=== PATIENT | female | born 2000 | race Caucasian/White ===

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

== ENCOUNTER → 2020-03-25 | Outpatient (REF) | payer OTHER, MEDICAID ==
[2020-03-25 17:50] LABS: BASO # 0.1 10^3/uL (0.0-0.2); EOS # 0.2 10^3/uL (0.0-0.5); EOS % 2.2 % (0.0-3.0); HEMATOCRIT 36.8 % (36.0-47.0); HEMOGLOBIN 11.1 g/dl (12.0-15.5); LYMPH % 30.3 % (24.0-44.0); MEAN CORPUSCULAR HEMOGLOBIN 21.9 pg (27.0-33.0); MEAN CORPUSCULAR HGB CONC 30.2 g/dl (32.0-36.5); MEAN CORPUSCULAR VOLUME 72.4 fl (80.0-96.0); MONO # 0.7 10^3/uL (0.0-0.8); MONO % 9.8 % (0.0-5.0); NEUTROPHILS # 3.8 10^3/uL (1.5-8.5); NEUTROPHILS % 56.4 % (36.0-66.0); PLATELET COUNT, AUTOMATED 222 10^3/uL (150-450); RED BLOOD COUNT 5.08 10^6/uL (4.00-5.40); WHITE BLOOD COUNT 6.7 10^3/uL (4.0-10.0)
[2020-03-25 18:06] LABS: HEMOGLOBIN A1c 6.1 %
[2020-03-25 18:10] LABS: ALT/SGPT 34 U/L (12-78); BLOOD UREA NITROGEN 13 MG/DL (7-18); CALCIUM LEVEL 9.1 MG/DL (8.5-10.1); CARBON DIOXIDE LEVEL 26 MEQ/L (21-32); CHLORIDE LEVEL 106 MEQ/L (98-107); CREATININE FOR GFR 0.77 MG/DL (0.55-1.30); GLUCOSE, FASTING 99 MG/DL (70-100); POTASSIUM SERUM 3.9 MEQ/L (3.5-5.1); SODIUM LEVEL 139 MEQ/L (136-145)
[2020-03-25 18:11] LABS: ALBUMIN 3.9 GM/DL (3.2-5.2); BILIRUBIN,TOTAL 0.4 MG/DL (0.2-1.0); CHOLESTEROL LEVEL 150 MG/DL (<200); CHOLESTEROL RISK RATIO 3.571 (<5); FREE T4 1.04 NG/DL (0.78-1.33); HDL CHOLESTEROL 42 MG/DL (>40); LDL CHOLESTEROL 90 MG/DL (<100); NON-HDL-C 108 MG/DL; TOTAL PROTEIN 7.3 GM/DL (6.4-8.2); TRIGLYCERIDES LEVEL 91 MG/DL (<150)
== END ==
LOC: M LAB REF 17:07
PROVIDERS: ATTEND Nurse Practitioner Family
DX: Z13.9 Encounter for screening, unspecified (principal); F41.8 Other specified anxiety disorders; F31.9 Bipolar disorder, unspecified

== ENCOUNTER → 2020-06-22 | Outpatient (REF) | payer OTHER, MEDICAID ==
[2020-06-22 19:59] LABS: BASO # 0.1 10^3/uL (0.0-0.2); BASO % 0.7 % (0.0-1.0); EOS # 0.1 10^3/uL (0.0-0.5); EOS % 1.6 % (0.0-3.0); HEMATOCRIT 37.7 % (36.0-47.0); HEMOGLOBIN 11.4 g/dl (12.0-15.5); LYMPH # 2.1 10^3/uL (1.5-5.0); LYMPH % 27.9 % (24.0-44.0); MEAN CORPUSCULAR HEMOGLOBIN 22.5 pg (27.0-33.0); MEAN CORPUSCULAR HGB CONC 30.2 g/dl (32.0-36.5); MEAN CORPUSCULAR VOLUME 74.5 fl (80.0-96.0); MONO # 0.5 10^3/uL (0.0-0.8); MONO % 6.7 % (0.0-5.0); NEUTROPHILS # 4.8 10^3/uL (1.5-8.5); NEUTROPHILS % 62.7 % (36.0-66.0); PLATELET COUNT, AUTOMATED 233 10^3/uL (150-450); RED BLOOD COUNT 5.06 10^6/uL (4.00-5.40); WHITE BLOOD COUNT 7.7 10^3/uL (4.0-10.0)
[2020-06-22 20:04] LABS: ALBUMIN 3.7 GM/DL (3.2-5.2); ALT/SGPT 18 U/L (12-78); BILIRUBIN,TOTAL 0.3 MG/DL (0.2-1.0); BLOOD UREA NITROGEN 9 MG/DL (7-18); CALCIUM LEVEL 9.1 MG/DL (8.5-10.1); CARBON DIOXIDE LEVEL 24 MEQ/L (21-32); CHLORIDE LEVEL 108 MEQ/L (98-107); CHOLESTEROL LEVEL 132 MG/DL (<200); CREATININE FOR GFR 0.71 MG/DL (0.55-1.30); GLUCOSE, FASTING 98 MG/DL (70-100); HDL CHOLESTEROL 48 MG/DL (>40); LDL CHOLESTEROL 70 MG/DL (<100); NON-HDL-C 84 MG/DL; POTASSIUM SERUM 4.3 MEQ/L (3.5-5.1); SODIUM LEVEL 136 MEQ/L (136-145); TOTAL PROTEIN 7.1 GM/DL (6.4-8.2); TRIGLYCERIDES LEVEL 71 MG/DL (<150)
[2020-06-22 20:28] LABS: TOTAL 25(OH) VITAMIN D 25.1 NG/ML (30.0-100.0)
[2020-06-22 20:50] LABS: HEMOGLOBIN A1c 5.5 %
== END ==
LOC: M LAB REF 17:09
PROVIDERS: ATTEND Nurse Practitioner Family
DX: E55.9 Vitamin D deficiency, unspecified (principal); R73.03 Prediabetes; Z13.9 Encounter for screening, unspecified; F41.8 Other specified anxiety disorders

== ENCOUNTER → 2020-10-20 | Outpatient (CLI) | payer OTHER | LOC: M LABSMTC 11:16 | PROVIDERS: ATTEND Student in an Organized Health Care Education/Training Program | DX: Z20.828 Contact with and (suspected) exposure to other viral communicable diseases (principal); Q28.2 Arteriovenous malformation of cerebral vessels ==

== ENCOUNTER 2020-12-03 23:05 | Emergency (ER) | payer OTHER ==
[~2020-12-03] VITALS: Ht 149.9 cm; Wt 64.2 kg
--- OUTSIDE RECORDS SUMMARY | 2020-12-03 23:13 | CCD | Continuity of Care Document ---
Author Author Jaleesa ONTIVEROS MD Organization Unknown Address [address], [address] [place] [address] Phone [phone] Care Team Providers Care Cryptologic Supervisor Name Role Phone Marva Oswald Md AUTM [phone] No PCP AUTM Unavailable Problems Description No Information Available Social History Type Date Description Comments Sex Unknown ETOH Use Denies alcohol use Tobacco Use Reviewed: 10/19/20 Patient has never sm oked (pipe, cigarette, cigar) Recreational Drug Use Regularly uses Marijuana Smoking Status Reviewed: 11/02/20 Patient has never sm oked (pipe, cigarette, cigar) Allergies, Adverse Reactions, Alerts Active Allergies Reaction Severity Comments Date Amoxicillin Hives 10/19/2020 Medications Description No Active Medications Immunizations Description No Information Available Vital Signs Date Vital Result Comment 10/19/2020 8:31am Height 59 inches 4'11" Weight 140.00 lb BMI (Body Mass Index) 28.3 kg/m2 BP Systolic 124 mmHg BP Diastolic 79 mmHg Heart Rate 73 /min Body Temperature 97.0 F Body Temperature 36.1 C Results Test Acquired Date Facility Test Result H/L Range Note Coronavirus 2019 Nasopharygeal 10/20/2020 [facility] [address] [place] [address] [phone] Coronavirus 2019 Nasopharygeal This nucleic aci <SEE N OTE> 1 BMP-Female 10/19/2020 [facility] [address] [place], [place] [id number] [phone] Glucose 97 mg/dL 74-106 2 BUN 12 mg/dL 6-20 Creatinine 0.8 mg/dL 0.5-1.3 Sodium 139 mmol/L 136-145 Potassium 3.9 mmol/L 3.5-5.3 Chloride 103 mmol/L 98-107 Co2 26 mEq/L 20-31 Anion Gap 10 mmol/L 7-16 eGFR-female 91 mL/m/1.73m - eGFR-Aa female 111 mL/m/1.73m - 3 Calcium 9.6 mg/dL 8.9-10.5 Cbcadp 10/19/2020 [facility] [address] [place] [address] [phone] WBC. 8.22 x10E3/uL 4.2-12.0 RBC 5.01 x10E6/uL 3.9-5.4 4 HGB 11.6 g/dL Low 12.0-16.0 HCT 38.2 % 36-47 MCV 76.3 fL Low 80-98 MCH 23.2 pg Low 27-33 MCHC 30.4 g/dL Low 32-36 RDW 15.3 % High 11.2-15.2 PLT 248 x10E3/uL 135-420 MPV 9.9 fL 7.0-12.3 % Michael 64.7 % 41.0-80.0 %Lym 27.3 % 10.0-45.2 %[place] 5.6 % 2.0-13.0 %Eos 1.7 % 0.0-8.0 %Baso 0.6 % 0.0-3.0 Neut 5.3 x10E3/uL 2.0-8.1 Lymp 2.3 x10E3/uL 0.6-3.1 Porter 0.5 x10E3/uL 0.0-1.0 Eos 0.1 x10E3/uL 0.0-0.6 Baso 0.1 x10E3/uL 0.0-0.2 Laboratory test finding 10/19/2020 [facility] [address] [place] [address] [phone] HCG Quant <2 miu/ml - 5 PT-Inr 10/19/2020 [facility] [address] [place] [address] [phone] PT 15.0 Sec High 10.6-13.0 Inr 1.3 - 6 Laboratory test finding 10/19/2020 [facility] [address] [place] [address] [phone] PTT 29.7 Sec 24.7-34.7 7 Venipuncture DONE - 1 This nucleic acid amplificat ion test was developed and its performance characteristics determined by [employer]. Nucleic acid amplification tests include PCR and TMA. This test has not been FDA cleared or approved. This test has been authorized by FDA under an Emergency Use Authorization (EUA). This test is only authorized for the duration of time the declaration that circumstances exist justifying the authorization of the emergency use of in vitro diagnostic tests for detection of SARS-CoV-2 virus and/or diagnosis of COVID-19 infection under section 564(b)(1) of the Act, 21 U.S.C. 360bbb-3 (b) (1), unless the authorization is terminated or revoked sooner. When diagnostic testing is negative, the possibility of a false negative result should be considered in the context of a patient's recent exposures and the presence of clinical signs and symptoms consistent with COVID-19. An individual without symptoms of COVID-19 and who is not shedding SARS-CoV-2 virus would expect to have a negative (not detected) result in this assay. Performed at: [facility] [address] [facility], [place] [address] [id number] Agricultural And Forestry Supervisor: Zayda Kim PhD, Phone: [phone] Not Detected 2 [place] Diabetes Associatio n (ADA) Recommended Range is 65-99 mg/dL 3 Normal Kidney Function or Mi ld Disease GFR >59 mL/min/1.73m2 Chronic Kidney Disease GFR 15-59 mL/min/1.73m2 Renal Failure GFR <15 mL/min/1.73m2 4 1+ Microcytosis 1+ Hypochromasia 1+ Anisocytosis 5 HCG Interpretation: Less Than 5.0 miu/ml - Either no HCG or too low to be clinically significant. 5.0 - 25.0 miu/ml - Equivocal result. Sh ould be repeated after 48 hours. A test result less than 25.0 should be interpreted in conjunction with other laboratory data available to the physician. Greater than 25.0 miu/ml - Clinically significant. 6 * INR Interpretation : . Recommended Theraputic Range: 2.0 - 3.0 . For treatment/prophylaxis . of venous thrombosis, . prevention of embolism. . . 7 Note normal range update due to new reagent lot 06/16/2020 Procedures Date Code Description Status 10/25/2020 79980 Moderate Sedation Se rvices; Same Phys Intl 15 Mins; PT >= 5 Years Completed 10/25/2020 71533 External Artery Carotid Cath PLM NT Completed 10/25/2020 69722 Vertebral Artery Catheter Placem ent Completed 10/25/2020 71211 Angiography Internal Corotid Of The Ipsil Intrac Circulation Completed Medical Devices Description No Information Available Encounters Type Date Location Provider Dx Diagnosis Office Visit 11/02/2020 11:40a [facility] Neurosurgery Issa Ontiveros MD 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 Office Visit 10/19/2020 8:20a [facility] Neurosurgery Issa Ontiveros MD 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 Assessments Date Code Description Provider 11/02/2020 Q28.2 Arteriovenous malformation of ce rebral vessels Issa Ontiveros MD 10/25/2020 Q28.2 Arteriovenous malformation of ce rebral vessels Issa Ontiveros MD 10/19/2020 Q28.2 Arteriovenous malformation of ce rebral vessels Issa Ontiveros MD 10/19/2020 Q28.2 Arteriovenous malformation of ce rebral vessels [facility] Plan of Treatment 11/02/2020 - Issa Ontiveros MD* 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
--- OUTSIDE RECORDS SUMMARY | 2020-12-03 23:13 | CCD | Continuity of Care Document ---
Author Author Jaleesa ONTIVEROS MD Organization Unknown Address [address], [address] [place] [address] Phone [phone] Care Team Providers Care Plastics Spreading Machine Operator Name Role Phone Marva Oswald Md AUTM [phone] No PCP AUTM Unavailable Problems Description No [...] H/L Range Note Coronavirus 2019 Nasopharygeal 10/20/2020 [facility] [address] [place] [address] [phone] Coronavirus 2019 Nasopharygeal This nucleic aci <SEE N OTE> 1 BMP-Female 10/19/2020 [facility] [address] [place] [address] [phone] Glucose 97 mg/dL 74-106 2 BUN 12 mg/dL 6-20 Creatinine 0.8 mg/dL 0.5-1.3 Sodium 139 mmol/L 136-145 Potassium 3.9 mmol/L 3.5-5.3 Chloride 103 mmol/L 98-107 Co2 26 mEq/L 20-31 Anion Gap 10 mmol/L 7-16 eGFR-female 91 mL/m/1.73m - eGFR-Aa female 111 mL/m/1.73m - 3 Calcium 9.6 mg/dL 8.9-10.5 Cbcadp 10/19/2020 [facility] [address] [place] [address] [phone] WBC. 8.22 x10E3/uL 4.2-12.0 RBC 5.01 x10E6/uL 3.9-5.4 4 HGB 11.6 g/dL Low 12.0-16.0 HCT 38.2 % 36-47 MCV 76.3 fL Low 80-98 MCH 23.2 pg Low 27-33 MCHC 30.4 g/dL Low 32-36 RDW 15.3 % High 11.2-15.2 PLT 248 x10E3/uL 135-420 MPV 9.9 fL 7.0-12.3 % Michael 64.7 % 41.0-80.0 %Lym 27.3 % 10.0-45.2 %[place] 5.6 % 2.0-13.0 %Eos 1.7 % 0.0-8.0 %Baso 0.6 % 0.0-3.0 Neut 5.3 x10E3/uL 2.0-8.1 Lymp 2.3 x10E3/uL 0.6-3.1 [place] 0.5 x10E3/uL 0.0-1.0 Eos 0.1 x10E3/uL 0.0-0.6 Baso 0.1 x10E3/uL 0.0-0.2 Laboratory test finding 10/19/2020 [facility] [address] [place] [address] [phone] HCG Quant <2 miu/ml - 5 PT-Inr 10/19/2020 [facility] [address] [place] [address] [phone] PT 15.0 Sec High 10.6-13.0 Inr 1.3 - 6 Laboratory test finding 10/19/2020 [facility] [address] [place] [address] [phone] PTT 29.7 Sec 24.7-34.7 7 Venipuncture DONE - 1 This nucleic acid amplificat ion test was developed and its performance characteristics determined by [employer]. Nucleic acid amplification tests include PCR and [...] detected) result in this assay. Performed at: [employer] [address] [facility], [place] [id number] Second Miller: Zayda Kim PhD, Phone: [phone] Not Detected 2 [place] Diabetes Associatio n (ADA) Recommended Range is [...] 06/16/2020 Procedures Date Code Description Status 10/25/2020 84740 Moderate Sedation Se rvices; Same Phys Intl 15 Mins; PT >= 5 Years Completed 10/25/2020 93111 External Artery Carotid Cath PLM NT Completed 10/25/2020 60741 Vertebral Artery Catheter Placem ent Completed 10/25/2020 14746 Angiography Internal Corotid Of The Ipsil Intrac Circulation Completed Medical Devices Description No Information Available Encounters Type Date Location Provider Dx Diagnosis Office Visit 10/19/2020 8:20a [facility] Neurosurgery Issa Ontiveros MD Q2 8.2 Arteriovenous [...] Status Appt Date Issa Ontiveros MD Created [facility] Neuroscience Division [address], [address] [place] [address] [phone]
--- OUTSIDE RECORDS SUMMARY | 2020-12-03 23:13 | CCD | Continuity of Care Document ---
Author Author Jaleesa ONTIVEROS MD Organization Unknown Address [address], [address] [place] [address] Phone [phone] Care Team Providers Care Bander Operator Name Role Phone Marva Oswald Md AUTM [phone] No PCP AUTM Unavailable Problems Description No [...] H/L Range Note Coronavirus 2019 Nasopharygeal 10/20/2020 [facility] [address] [place] [address] [phone] Coronavirus 2019 Nasopharygeal This nucleic aci <SEE N OTE> 1 BMP-Female 10/19/2020 [facility] [address] [place] [address] [phone] Glucose 97 mg/dL 74-106 2 BUN 12 mg/dL 6-20 Creatinine 0.8 mg/dL 0.5-1.3 Sodium 139 mmol/L 136-145 Potassium 3.9 mmol/L 3.5-5.3 Chloride 103 mmol/L 98-107 Co2 26 mEq/L 20-31 Anion Gap 10 mmol/L 7-16 eGFR-female 91 mL/m/1.73m - eGFR-Aa female 111 mL/m/1.73m - 3 Calcium 9.6 mg/dL 8.9-10.5 Cbcadp 10/19/2020 [facility] [address] [place] [address] [phone] WBC. 8.22 x10E3/uL 4.2-12.0 RBC 5.01 x10E6/uL 3.9-5.4 4 HGB 11.6 g/dL Low 12.0-16.0 HCT 38.2 % 36-47 MCV 76.3 fL Low 80-98 MCH 23.2 pg Low 27-33 MCHC 30.4 g/dL Low 32-36 RDW 15.3 % High 11.2-15.2 PLT 248 x10E3/uL 135-420 MPV 9.9 fL 7.0-12.3 % Michael 64.7 % 41.0-80.0 %Lym 27.3 % 10.0-45.2 %[place] 5.6 % 2.0-13.0 %Eos 1.7 % 0.0-8.0 %Baso 0.6 % 0.0-3.0 Neut 5.3 x10E3/uL 2.0-8.1 Lymp 2.3 x10E3/uL 0.6-3.1 [place] 0.5 x10E3/uL 0.0-1.0 Eos 0.1 x10E3/uL 0.0-0.6 Baso 0.1 x10E3/uL 0.0-0.2 Laboratory test finding 10/19/2020 [facility] [address] [place] [address] [phone] HCG Quant <2 miu/ml - 5 PT-Inr 10/19/2020 [facility] [address] [place] [address] [phone] PT 15.0 Sec High 10.6-13.0 Inr 1.3 - 6 Laboratory test finding 10/19/2020 [facility] [address] [place] [address] [phone] PTT 29.7 Sec 24.7-34.7 7 Venipuncture DONE - 1 This nucleic acid amplificat ion test was developed and its performance characteristics determined by [employer]. Nucleic acid amplification tests include PCR and [...] detected) result in this assay. Performed at: [facility] [address] [facility], [place] [id number] Garnishment Specialist: Zayda Kim PhD, Phone: [phone] Not Detected 2 [place] Diabetes Associatio n (ADA) Recommended Range is [...] 06/16/2020 Procedures Date Code Description Status 10/25/2020 72501 Moderate Sedation Se rvices; Same Phys Intl 15 Mins; PT >= 5 Years Completed 10/25/2020 71432 External Artery Carotid Cath PLM NT Completed 10/25/2020 09964 Vertebral Artery Catheter Placem ent Completed 10/25/2020 84667 Angiography Internal Corotid Of The Ipsil Intrac Circulation Completed Medical Devices Description No Information Available Encounters Type Date Location Provider Dx Diagnosis Office Visit 11/02/2020 11:40a [facility] Neurosurgery Issa Ontiveros MD 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
--- OUTSIDE RECORDS SUMMARY | 2020-12-03 23:13 | CCD | Continuity of Care Document ---
Author Author Jaleesa ONTIVEROS MD Organization Unknown Address [address], [address] [place] [address] Phone [phone] Care Team Providers Care Technical Project Manager Name Role Phone Marva Oswald Md AUTM [phone] No PCP AUTM Unavailable Problems Description No Information Available Social History Type Date Description Comments Sex Unknown ETOH Use Denies alcohol use Tobacco Use Reviewed: 10/19/20 Patient has never sm oked (pipe, cigarette, cigar) Recreational Drug Use Regularly uses Marijuana Smoking Status Reviewed: 10/19/20 Patient has never sm oked [...] H/L Range Note Coronavirus 2019 Nasopharygeal 10/20/2020 [facility] [address] [place] [address] [phone] Coronavirus 2019 Nasopharygeal This nucleic aci <SEE N OTE> 1 BMP-Female 10/19/2020 [facility] [address] [place] [address] [phone] Glucose 97 mg/dL 74-106 2 BUN 12 mg/dL 6-20 Creatinine 0.8 mg/dL 0.5-1.3 Sodium 139 mmol/L 136-145 Potassium 3.9 mmol/L 3.5-5.3 Chloride 103 mmol/L 98-107 Co2 26 mEq/L 20-31 Anion Gap 10 mmol/L 7-16 eGFR-female 91 mL/m/1.73m - eGFR-Aa female 111 mL/m/1.73m - 3 Calcium 9.6 mg/dL 8.9-10.5 Cbcadp 10/19/2020 [facility] [address] [place] [address] [phone] WBC. 8.22 x10E3/uL 4.2-12.0 RBC 5.01 x10E6/uL 3.9-5.4 4 HGB 11.6 g/dL Low 12.0-16.0 HCT 38.2 % 36-47 MCV 76.3 fL Low 80-98 MCH 23.2 pg Low 27-33 MCHC 30.4 g/dL Low 32-36 RDW 15.3 % High 11.2-15.2 PLT 248 x10E3/uL 135-420 MPV 9.9 fL 7.0-12.3 % Michael 64.7 % 41.0-80.0 %Lym 27.3 % 10.0-45.2 %[place] 5.6 % 2.0-13.0 %Eos 1.7 % 0.0-8.0 %Baso 0.6 % 0.0-3.0 Neut 5.3 x10E3/uL 2.0-8.1 Lymp 2.3 x10E3/uL 0.6-3.1 [place] 0.5 x10E3/uL 0.0-1.0 Eos 0.1 x10E3/uL 0.0-0.6 Baso 0.1 x10E3/uL 0.0-0.2 Laboratory test finding 10/19/2020 [facility] [address] [place] [address] [phone] HCG Quant <2 miu/ml - 5 PT-Inr 10/19/2020 [facility] [address] [place] [address] [phone] PT 15.0 Sec High 10.6-13.0 Inr 1.3 - 6 Laboratory test finding 10/19/2020 [facility] [address] [place] [address] [phone] PTT 29.7 Sec 24.7-34.7 7 Venipuncture DONE - 1 This nucleic acid amplificat ion test was developed and its performance characteristics determined by [employer]. Nucleic acid amplification tests include PCR and [...] detected) result in this assay. 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 Ontiveros to be scheduled in next couple weeks. Functional Status Description No Information Available Mental Status Description No Information Available Referrals Refer to Reason for Referral Status Appt Date Issa Ontiveros MD Created [facility] Neuroscience Division [address], [address] [place] [address] [phone]
--- OUTSIDE RECORDS SUMMARY | 2020-12-03 23:13 | CCD | Continuity of Care Document ---
Author Author Jaleesa ONTIVEROS MD Organization Unknown Address [address], [address] [place] [address] Phone [phone] Care Team Providers Care Coffee Host Name Role Phone Marva Oswald Md AUTM [phone] No PCP AUTM Unavailable Problems Description No [...] H/L Range Note Coronavirus 2019 Nasopharygeal 10/20/2020 [facility] [address] [place] [address] [phone] Coronavirus 2019 Nasopharygeal This nucleic aci <SEE N OTE> 1 BMP-Female 10/19/2020 [facility] [address] [place] [address] [phone] Glucose 97 mg/dL 74-106 2 BUN 12 mg/dL 6-20 Creatinine 0.8 mg/dL 0.5-1.3 Sodium 139 mmol/L 136-145 Potassium 3.9 mmol/L 3.5-5.3 Chloride 103 mmol/L 98-107 Co2 26 mEq/L 20-31 Anion Gap 10 mmol/L 7-16 eGFR-female 91 mL/m/1.73m - eGFR-Aa female 111 mL/m/1.73m - 3 Calcium 9.6 mg/dL 8.9-10.5 Cbcadp 10/19/2020 [facility] [address] [place] [address] [phone] WBC. 8.22 x10E3/uL 4.2-12.0 RBC 5.01 x10E6/uL 3.9-5.4 4 HGB 11.6 g/dL Low 12.0-16.0 HCT 38.2 % 36-47 MCV 76.3 fL Low 80-98 MCH 23.2 pg Low 27-33 MCHC 30.4 g/dL Low 32-36 RDW 15.3 % High 11.2-15.2 PLT 248 x10E3/uL 135-420 MPV 9.9 fL 7.0-12.3 % Michael 64.7 % 41.0-80.0 %Lym 27.3 % 10.0-45.2 %[place] 5.6 % 2.0-13.0 %Eos 1.7 % 0.0-8.0 %Baso 0.6 % 0.0-3.0 Neut 5.3 x10E3/uL 2.0-8.1 Lymp 2.3 x10E3/uL 0.6-3.1 [place] 0.5 x10E3/uL 0.0-1.0 Eos 0.1 x10E3/uL 0.0-0.6 Baso 0.1 x10E3/uL 0.0-0.2 Laboratory test finding 10/19/2020 [facility] [address] [place] [address] [phone] HCG Quant <2 miu/ml - 5 PT-Inr 10/19/2020 [facility] [address] [place] [address] [phone] PT 15.0 Sec High 10.6-13.0 Inr 1.3 - 6 Laboratory test finding 10/19/2020 [facility] [address] [place] [address] [phone] PTT 29.7 Sec 24.7-34.7 7 Venipuncture DONE - 1 This nucleic acid amplificat ion test was developed and its performance characteristics determined by [employer]. Nucleic acid amplification tests include PCR and [...] detected) result in this assay. Performed at: [facility] [address] [facility], [place] [id number] Biosolids Management Technician: Zayda Kim PhD, Phone: [phone] Not Detected 2 [place] Diabetes Associatio n (ADA) Recommended Range is [...] 06/16/2020 Procedures Date Code Description Status 10/25/2020 31854 Moderate Sedation Se rvices; Same Phys Intl 15 Mins; PT >= 5 Years Completed 10/25/2020 49604 External Artery Carotid Cath PLM NT Completed 10/25/2020 69214 Vertebral Artery Catheter Placem ent Completed 10/25/2020 88595 Angiography Internal Corotid Of The Ipsil Intrac Circulation Completed Medical Devices Description No Information Available Encounters Type Date Location Provider Dx Diagnosis Office Visit 10/19/2020 8:20a [facility] Neurosurgery Issa Ontiveros MD Q2 8.2 [...] Status Appt Date Issa Ontiveros MD Created [facility] Neuroscience Division [address], [address] [place] [address] [phone]
--- OUTSIDE RECORDS SUMMARY | 2020-12-03 23:14 | CCD | Continuity of Care Document ---
Author Author Jaleesa BASILIO M.D. Organization Unknown Address [address] [place] [address] Phone [phone] Care Team Providers Care Health Promotion Coordinator Name Role Phone Ana Hernandez AUTM [phone] Problems Active Problems Provider Date Migraine Marva Basilio M.D. Onset: 09/02/2020 Social History Type Date Description Comments Sex Unknown Tobacco Use Start: Unknown Patient has never smoked Allergies, Adverse Reactions, Alerts Active Allergies Reaction Severity Comments Date Amoxicillin 09/02/2020 Inactive Allergies NKDA 09/02/2020 Medications Active Medications SIG Qnty Indications Ordering Provide r Date Tylenol 325mg Tablets 1-2 pills every 6 hours as needed Marva Basilio M.D. Ibuprofen 200mg Tablets Take 1-4 tabs as needed for severe headache pain every 8 hours Sa coby Basilio M.D. History Medications Depo-Provera 150mg/ml Suspension inject Im every three months. 1units Unknown 08/02/2020 - Unknown Vitamin D3 1.25mg (63458 Ut) Table ts 1 po q wk for 12 wks, then change to 1000 unit tablet daily thereafter 12tabs Unknown 03/31/2020 - Unknown Immunizations CPT Code Status Date Vaccine Lot # [id number] Given 08/02/2020 Influenza Virus Vaccine, Quadrivalent, Split, Preservative Free [id number] Given 09/29/2019 Influenza Virus Vaccine, Quadrivalent, Split, Preservative Free Vital Signs Date Vital Result Comment 09/02/2020 9:40am Respiratory Rate 12 /min Height 59 inches 4'11" Height Percentile 3 % Weight 150.00 lb Weight Percentile 80th BMI (Body Mass Index) 30.3 kg/m2 [place] Body Weight 100 lb Results Description No Information Available Procedures Description No Information Available Medical Devices Description No Information Available Encounters Type Date Location Provider Dx Diagnosis Office Visit 09/02/2020 9:00a [facility] Marva santana M.D. G43.109 Migraine with aura, not intractable, w/o status migrainosus Assessments Date Code Description Provider 09/02/2020 G43.109 Migraine with aura, not intractable, without status migrainosus Marva Basilio M.D. Plan of Treatment Future Appointment(s):* 12/06/2020 12:30 pm - Marva Basilio M.D. at [facility] Functional Status Description No Information Available Mental Status Description No Information Available Referrals Refer to Reason for Referral Status Appt Date Marva Basilio M.D. Created [address] [place] [address] [phone]
--- OUTSIDE RECORDS SUMMARY | 2020-12-03 23:14 | CCD | Continuity of Care Document ---
Author Author Jaleesa SHEEHAN Organization Unknown Address [address] [place] [address] Phone [phone] Care Team Providers Care Devops Architect Name Role Phone Ana Hernandez TEACHER PHYSICALLY IMPAIRED AUTM [phone] Problems Active Problems Provider Date Migraine Marva Oswald M.D. Onset: 09/02/2020 Social History Type Date Description Comments Sex Unknown Tobacco Use Start: Unknown Patient has never smoked Allergies, Adverse Reactions, Alerts Active Allergies Reaction Severity Comments Date Amoxicillin 09/02/2020 Inactive Allergies NKDA 09/02/2020 Medications Active Medications SIG Qnty Indications Ordering Provide r Date Tylenol 325mg Tablets 1-2 pills every 6 hours as needed Marva Oswald M.D. Ibuprofen 200mg Tablets Take 1-4 tabs as needed for severe headache pain every 8 hours Sa coby Oswald M.D. History Medications Depo-Provera 150mg/ml Suspension inject Im every three months. 1units Unknown 08/02/2020 - Unknown Vitamin D3 1.25mg (44831 Ut) Table ts 1 po q wk for 12 wks, then change to 1000 unit tablet daily thereafter 12tabs Unknown 03/31/2020 - Unknown Immunizations CPT Code Status Date Vaccine Lot # [id number] Given 08/02/2020 Influenza Virus Vaccine, Quadrivalent, Split, Preservative Free [id number] Given 09/29/2019 Influenza Virus Vaccine, Quadrivalent, Split, Preservative Free Vital Signs Date Vital Result Comment 09/02/2020 9:40am Respiratory Rate 12 /min Height 59 inches 4'11" Height Percentile 3 % Weight 150.00 lb Weight Percentile 80th BMI (Body Mass Index) 30.3 kg/m2 [place] Body Weight 100 lb Results Description No Information Available Procedures Date Code Description Status 09/13/2020 95023 MRI Brain W/O Contrast Completed 09/13/2020 78488 MRI Brain W/O Contrast Completed 09/13/2020 49752 Magnetic Resonance Angiogtaphy H ead W/O Contrast Material(S) Completed 09/13/2020 92252 Magnetic Resonance Angiogtaphy H ead W/O Contrast Material(S) Completed Medical Devices Description No Information Available Encounters Type Date Location Provider Dx Diagnosis Office Visit 09/02/2020 9:00a [facility] Marva santana M.D. G43.109 Migraine with aura, not intractable, w/o status migrainosus Assessments Date Code Description Provider 09/13/2020 G43.109 Migraine with aura, not intractable, without status migrainosus Dashawn Driscoll M.D. 09/13/2020 G43.109 Migraine with aura, not intractable, without status migrainosus MRI 09/13/2020 R42 Dizziness and giddiness Dashawn Carrillo M.D. 09/13/2020 R42 Dizziness and giddiness MRI 09/13/2020 H53.2 Diplopia Zaira Lambert 09/13/2020 H53.2 Diplopia MRI 09/02/2020 G43.109 Migraine with aura, not intractable, without status migrainosus Marva Oswald M.D. Plan of Treatment Future Appointment(s):* 12/06/2020 12:30 pm - Marva Oswald M.D. at [facility] Functional Status Description No Information Available Mental Status Description No Information Available Referrals Refer to Reason for Referral Status Appt Date Marva Oswald M.D. Created [address] [place] [address] [phone] Marva Oswald M.D. Created [address] [place] [address] [phone]
--- OUTSIDE RECORDS SUMMARY | 2020-12-03 23:14 | CCD | Continuity of Care Document ---
Author Author Jaleesa ONTIVEROS MD Organization Unknown Address [address], [address] [place] [address] Phone [phone] Care Team Providers Care Slurry Control Tender Name Role Phone Marva Oswald Md AUTM [phone] No PCP AUTM Unavailable Problems Description No [...] 97.0 F Body Temperature 36.1 C Results Description No Information Available Procedures Description No Information Available Medical Devices Description No Information Available Encounters Description No Information Available Assessments Date Code Description Provider 10/19/2020 Q28.2 Arteriovenous malformation of ce rebral vessels Issa Ontiveros MD Plan of Treatment Future Appointment(s):* 10/25/2020 8:00 am - Issa Ontiveros MD 10/19/2020 - Issa Ontiveros MD* 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 Padalino to be scheduled in next couple weeks. Functional Status Description No Information Available Mental Status Description No Information Available Referrals Refer to Reason for Referral Status Appt Date Issa Ontiveros MD Created [facility] Neuroscience Division [address], [address] [place] [address] [phone]
--- OUTSIDE RECORDS SUMMARY | 2020-12-03 23:14 | CCD | Continuity of Care Document ---
Author Author Jaleesa SHEEHAN Organization Unknown Address [address] [place] [address] Phone [phone] Care Team Providers Care Shot Core Drill Operator Name Role Phone Ana Hernandez AUTM [phone] Problems Active Problems Provider Date Migraine Mrava Oswald M.D. Onset: 09/02/2020 Social History Type [...] Unknown 08/02/2020 - Unknown Vitamin D3 1.25mg (52636 Ut) Table ts 1 po q wk for 12 wks, then change to 1000 unit tablet daily thereafter 12tabs Unknown 03/31/2020 - Unknown Immunizations CPT Code Status Date Vaccine Lot # [id number] Given 08/02/2020 Influenza Virus Vaccine, Quadrivalent, Split, Preservative Free 49654 Given 09/29/2019 Influenza Virus Vaccine, Quadrivalent, Split, Preservative Free Vital Signs Date Vital Result Comment 09/02/2020 9:40am Respiratory Rate 12 /min Height 59 inches 4'11" Height Percentile 3 % Weight 150.00 lb Weight Percentile 80th BMI (Body Mass Index) 30.3 kg/m2 [place] Body Weight 100 lb Results Description No Information Available Procedures Date Code Description Status 09/13/2020 57972 MRI Brain W/O Contrast Completed 09/13/2020 92538 Magnetic Resonance Angiogtaphy H ead W/O Contrast Material(S) Completed Medical Devices Description No Information Available Encounters Type Date Location Provider Dx Diagnosis Office Visit 09/02/2020 9:00a [facility] Marva santana M.D. G43.109 Migraine with aura, not intractable, w/o status migrainosus Assessments Date Code Description Provider 09/13/2020 G43.109 Migraine with aura, not intractable, without status migrainosus MRI 09/13/2020 R42 Dizziness and giddiness MRI 09/13/2020 H53.2 Diplopia MRI 09/02/2020 G43.109 Migraine with aura, not intractable, without status migrainosus Marva Oswald M.D. Plan of Treatment Future Appointment(s):* 12/06/2020 12:30 pm - Marva Oswald M.D. at [facility] Functional Status Description No Information Available Mental Status Description No Information Available Referrals Refer to Reason for Referral Status Appt Date Marva Oswald M.D. Created [address] [place] [address] [phone]
--- OUTSIDE RECORDS SUMMARY | 2020-12-03 23:14 | CCD ---
Author Author [facility] Organization [facility] Address Unknown Phone Unavailable Care Team Providers Care Bead Wrapper Name Role Phone Donell Ontiveros MD Unavailable Unavailable Donell Ontiveros MD Unavailable Unavailable Donell Ontiveros MD Unavailable Unavailable Padalino, Donell Parsons MD Unavailable Unavailable Padalino, Donell Parsons MD Unavailable Unavailable Padalino, Donell Parsons MD Unavailable Unavailable Padalino, Donell Parsons MD Unavailable Unavailable Padalino, Donell Parsons MD Unavailable Unavailable Padalino, Donell Parsons MD Unavailable Unavailable Padalino, Donell Parsons MD Unavailable Unavailable Padalino, Donell Parsons MD Unavailable Unavailable Padalino, Donell Parsons MD Unavailable Unavailable Padalino, Donell Parsons MD Unavailable Unavailable Padalino, Donell Parsons MD Unavailable Unavailable Padalino, Donell Parsons MD Unavailable Unavailable Padalino, Donell Parsons MD Unavailable Unavailable Padalino, Donell Parsons MD Unavailable Unavailable Padalino, Donell Parsons MD Unavailable Unavailable Padalino, Donell Parsons MD Unavailable Unavailable Padalino, Donell Parsons MD Unavailable Unavailable Padalino, Donell Parsons MD Unavailable Unavailable Padalino, Donell Parsons MD Unavailable Unavailable Padalino, Donell Parsons MD Unavailable Unavailable Padalino, Donell Parsons MD Unavailable Unavailable Padalino, Donell Parsons MD Unavailable Unavailable Padalino, Donell Parsons MD Unavailable Unavailable Padalino, Donell Parsons MD Unavailable Unavailable Padalino, Donell Parsons MD Unavailable Unavailable Padalino, Donell Parsons MD Unavailable Unavailable Padalino, Donell Parsons MD Unavailable Unavailable Padalino, Donell Parsons MD Unavailable Unavailable Padalino, Donell Parsons MD Unavailable Unavailable Padalino, Donell Parsons MD Unavailable Unavailable Padalino, Donell Parsons MD Unavailable Unavailable Padalino, Donell Parsons MD Unavailable Unavailable Padalino, Donell Parsons MD Unavailable Unavailable Padalino, Donell Parsons MD Unavailable Unavailable Padalino, Donell Parsons MD Unavailable Unavailable Padalino, Donell Parsons MD Unavailable Unavailable Padalino, Donell Parsons MD Unavailable Unavailable Padalino, Donell Parsons MD Unavailable Unavailable Padalino, Donell Parsons MD Unavailable Unavailable Padalino, Donell Parsons MD Unavailable Unavailable Padalino, Donell Parsons MD Unavailable Unavailable Padalino, Donell Parsons MD Unavailable Unavailable Padalino, Donell Parsons MD Unavailable Unavailable Padalino, Donell Parsons MD Unavailable Unavailable Padalino, Donell Parsons MD Unavailable Unavailable Padalino, Donell Parsons MD Unavailable Unavailable Padalino, Donell aPrsons MD Unavailable Unavailable Padalino, Donell Parsons MD Unavailable Unavailable Padalino, Donell Parsons MD Unavailable Unavailable Padalino, Donell Parsons MD Unavailable Unavailable Padalino, Donell Parsons MD Unavailable Unavailable Padalino, Donell Parsons MD Unavailable Unavailable Padalino, Donell Parsons MD Unavailable Unavailable Padalino, Donell Parsons MD Unavailable Unavailable Padalino, Donell Parsons MD Unavailable Unavailable Padalino, Donell Parsons MD Unavailable Unavailable Padalino, Donell Parsons MD Unavailable Unavailable Padalino, Donell Parsons MD Unavailable Unavailable Padalino, Donell Parsons MD Unavailable Unavailable Padalino, Donell Parsons MD Unavailable Unavailable Padalino, Donell Parsons MD Unavailable Unavailable Padalino, Donell Parsons MD Unavailable Unavailable Padalino, Donell Parsons MD Unavailable Unavailable Padalino, Donell Parsons MD Unavailable Unavailable Padalino, Donell Parsons MD Unavailable Unavailable Padalino, Donell Parsons MD Unavailable Unavailable Padalino, Donell Parsons MD Unavailable Unavailable Padalino, Donell Parsons MD Unavailable Unavailable Padalino, Donell Parsons MD Unavailable Unavailable Padalino, Donell Parsons MD Unavailable Unavailable Padalino, Donell Parsons MD Unavailable Unavailable Padalino, Donell Parsons MD Unavailable Unavailable Padalino, Donell Parsons MD Unavailable Unavailable Davison, Chelsey ENVIRONMENTAL ENGINEER SCIENTIST ENVIRONMENTAL ENGINEER SCIENTIST Unavailable Unavailable Davison, F Chelsey ENVIRONMENTAL ENGINEER SCIENTIST-BC Unavailable Unavailable Davison, F Chelsey ENVIRONMENTAL ENGINEER SCIENTIST-BC Unavailable Unavailable Davison, F Chelsey ENVIRONMENTAL ENGINEER SCIENTIST-BC Unavailable Unavailable Davison, F Chelsey ENVIRONMENTAL ENGINEER SCIENTIST-BC Unavailable Unavailable Davison, F Chelsey ENVIRONMENTAL ENGINEER SCIENTIST-BC Unavailable Unavailable Davison, F Chelsey ENVIRONMENTAL ENGINEER SCIENTIST-BC Unavailable Unavailable Davison, F Chelsey ENVIRONMENTAL ENGINEER SCIENTIST-BC Unavailable Unavailable Davison, F Chelsey ENVIRONMENTAL ENGINEER SCIENTIST-BC Unavailable Unavailable Davison, F Chelsey ENVIRONMENTAL ENGINEER SCIENTIST-BC Unavailable Unavailable Davison, F Chelsey ENVIRONMENTAL ENGINEER SCIENTIST-BC Unavailable Unavailable Davison, F Chelsey ENVIRONMENTAL ENGINEER SCIENTIST-BC Unavailable Unavailable Davison, F Chelsey ENVIRONMENTAL ENGINEER SCIENTIST-BC Unavailable Unavailable Davison, F Chelsey ENVIRONMENTAL ENGINEER SCIENTIST-BC Unavailable Unavailable Davison, F Chelsey ENVIRONMENTAL ENGINEER SCIENTIST-BC Unavailable Unavailable Davison, F Chelsey ENVIRONMENTAL ENGINEER SCIENTIST-BC Unavailable Unavailable Davison, F Chelsey ENVIRONMENTAL ENGINEER SCIENTIST-BC Unavailable Unavailable Davison, F Chelsey ENVIRONMENTAL ENGINEER SCIENTIST-BC Unavailable Unavailable Davison, F Chelsey ENVIRONMENTAL ENGINEER SCIENTIST-BC Unavailable Unavailable Davison, F Chelsey ENVIRONMENTAL ENGINEER SCIENTIST-BC Unavailable Unavailable Davison, F Chelsey ENVIRONMENTAL ENGINEER SCIENTIST-BC Unavailable Unavailable Davison, F Chelsey ENVIRONMENTAL ENGINEER SCIENTIST-BC Unavailable Unavailable Davison, F Chelsey ENVIRONMENTAL ENGINEER SCIENTIST-BC Unavailable Unavailable MOIZ GRIJALVA ENVIRONMENTAL ENGINEER SCIENTIST-C, MSN Unavailable Unavailab le GRIJALVAMOIZ ROSEA ENVIRONMENTAL ENGINEER SCIENTIST-C, MSN Unavailable Unavailab MOIZ Juarez ENVIRONMENTAL ENGINEER SCIENTIST-C, MSN Unavailable Unavailab le MOIZ GRIJALVAA ENVIRONMENTAL ENGINEER SCIENTIST-C, MSN Unavailable Unavailab MOIZ JuarezA ENVIRONMENTAL ENGINEER SCIENTIST-C, MSN Unavailable Unavailab le GRIJALVA, MOIZ MUKESH ENVIRONMENTAL ENGINEER SCIENTIST-C, MSN Unavailable Unavailab le GRIJALVA, MOIZ MUKESH ENVIRONMENTAL ENGINEER SCIENTIST-C, MSN Unavailable Unavailab le GRIJALVA, MOIZ MUKESH ENVIRONMENTAL ENGINEER SCIENTIST-C, MSN Unavailable Unavailab le GRIJALVA, MOIZ MUKESH ENVIRONMENTAL ENGINEER SCIENTIST-C, MSN Unavailable Unavailab le GRIJALVA, MOIZ MUKESH ENVIRONMENTAL ENGINEER SCIENTIST-C, MSN Unavailable Unavailab le GRIJALVA, MOIZ MUKESH ENVIRONMENTAL ENGINEER SCIENTIST-C, MSN Unavailable Unavailab le GRIJALVA, MOIZ MUKEHS ENVIRONMENTAL ENGINEER SCIENTIST-C, MSN Unavailable Unavailab le GRIJALVA, MOIZ MUKESH ENVIRONMENTAL ENGINEER SCIENTIST-C, MSN Unavailable Unavailab le GRIJALVA, MOIZ MUKESH ENVIRONMENTAL ENGINEER SCIENTIST-C, MSN Unavailable Unavailab le GRIJALVA, MOIZ MUKESH ENVIRONMENTAL ENGINEER SCIENTIST-C, MSN Unavailable Unavailab le GRIJALVA, MOIZ MUKESH ENVIRONMENTAL ENGINEER SCIENTIST-C, MSN Unavailable Unavailab le GRIJALVA, MOIZ MUKESH ENVIRONMENTAL ENGINEER SCIENTIST-C, MSN Unavailable Unavailab le GRIJALVA, MOIZ MUKESH ENVIRONMENTAL ENGINEER SCIENTIST-C, MSN Unavailable Unavailab le GRIJALVA, MOIZ MUKESH ENVIRONMENTAL ENGINEER SCIENTIST-C, MSN Unavailable Unavailab le GRIJAVLA, MOIZ MUKESH ENVIRONMENTAL ENGINEER SCIENTIST-C, MSN Unavailable Unavailab le GRIJALVA, MOIZ MUKESH ENVIRONMENTAL ENGINEER SCIENTIST-C, MSN Unavailable Unavailab le GRIJALVA, MOIZ MUKESH ENVIRONMENTAL ENGINEER SCIENTIST-C, MSN Unavailable Unavailab le GRIJALVA, MOIZ MUKESH ENVIRONMENTAL ENGINEER SCIENTIST-C, MSN Unavailable Unavailab le GRIJALVA, MOIZ MUKESH ENVIRONMENTAL ENGINEER SCIENTIST-C, MSN Unavailable Unavailab le GRIJALVA, MOIZ MUKESH ENVIRONMENTAL ENGINEER SCIENTIST-C, MSN Unavailable Unavailab le GRIJALVA, MOIZ MUKESH ENVIRONMENTAL ENGINEER SCIENTIST-C, MSN Unavailable Unavailab le GRIJALVA, MOIZ MUKESH ENVIRONMENTAL ENGINEER SCIENTIST-C, MSN Unavailable Unavailab le GRIJALVA, MOIZ MUKESH ENVIRONMENTAL ENGINEER SCIENTIST-C, MSN Unavailable Unavailab le GRIJALVA, MOIZ MUKESH ENVIRONMENTAL ENGINEER SCIENTIST-C, MSN Unavailable Unavailab le GRIJALVA, MOIZ MUKESH ENVIRONMENTAL ENGINEER SCIENTIST-C, MSN Unavailable Unavailab le GRIJALVA, MOIZ MUKESH ENVIRONMENTAL ENGINEER SCIENTIST-C, MSN Unavailable Unavailab le GRIJALVA, MOIZ MUKESH ENVIRONMENTAL ENGINEER SCIENTIST-C, MSN Unavailable Unavailab le GRIJALVA, MOIZ MUKESH ENVIRONMENTAL ENGINEER SCIENTIST-C, MSN Unavailable Unavailab le GRIJALVA, MOIZ MUKESH ENVIRONMENTAL ENGINEER SCIENTIST-C, MSN Unavailable Unavailab le GRIJALVA, MOIZ MUKESH ENVIRONMENTAL ENGINEER SCIENTIST-C, MSN Unavailable Unavailab le GRIJALVA, MOIZ MUKESH ENVIRONMENTAL ENGINEER SCIENTIST-C, MSN Unavailable Unavailab le GRIJALVA, MOIZ MUKESH ENVIRONMENTAL ENGINEER SCIENTIST-C, MSN Unavailable Unavailab le GRIJALVA, MOIZ MUKESH ENVIRONMENTAL ENGINEER SCIENTIST-C, MSN Unavailable Unavailab le GRIJALVA, MOIZ MUKESH ENVIRONMENTAL ENGINEER SCIENTIST-C, MSN Unavailable Unavailab le GRIJALVA, MOIZ MUKESH ENVIRONMENTAL ENGINEER SCIENTIST-C, MSN Unavailable Unavailab le GRIJALVA, MOIZ MUKESH ENVIRONMENTAL ENGINEER SCIENTIST-C, MSN Unavailable Unavailab le GRIJALVA, MOIZ MUKESH ENVIRONMENTAL ENGINEER SCIENTIST-C, MSN Unavailable Unavailab le GRIJALVA, MOIZ MUKESH ENVIRONMENTAL ENGINEER SCIENTIST-C, MSN Unavailable Unavailab le Padalino, Donell Parsons MD Unavailable Unavailable Padalino, Donell Parsons MD Unavailable Unavailable Padalino, Donell Parsons MD Unavailable Unavailable Padalino, Donell Parsons MD Unavailable Unavailable Padalino, Donell Parsons MD Unavailable Unavailable Padalino, Donell Parsons MD Unavailable Unavailable Padalino, Donell Parsons MD Unavailable Unavailable Padalino, Donell Parsons MD Unavailable Unavailable Padalino, Donell Parsons MD Unavailable Unavailable Padalino, Donell Parsons MD Unavailable Unavailable Padalino, Donell Parsons MD Unavailable Unavailable Padalino, Donell Parsons MD Unavailable Unavailable Padalino, Donell Parsons MD Unavailable Unavailable Padalino, Donell Parsons MD Unavailable Unavailable Padalino, Donell Parsons MD Unavailable Unavailable Padalino, Donell Parsons MD Unavailable Unavailable Padalino, Donell Parsons MD Unavailable Unavailable Padalino, Donell Parsons MD Unavailable Unavailable Padalino, Donell Parsons MD Unavailable Unavailable Padalino, Donell Parsons MD Unavailable Unavailable Padalino, Donell Parsons MD Unavailable Unavailable Padalino, Donell Parsons MD Unavailable Unavailable Padalino, Donell Parsons MD Unavailable Unavailable Padalino, Donell Parsons MD Unavailable Unavailable Padalino, Donell Parsons MD Unavailable Unavailable Padalino, Donell Parsons MD Unavailable Unavailable Padalino, Donell Parsons MD Unavailable Unavailable Padalino, Donell Parsons MD Unavailable Unavailable Padalino, Donell Parsons MD Unavailable Unavailable Padalino, Donell Parsons MD Unavailable Unavailable Padalino, Donell Parsons MD Unavailable Unavailable Padalino, Donell Parsons MD Unavailable Unavailable Padalino, Donell Parsons MD Unavailable Unavailable Padalino, Donell Parsons MD Unavailable Unavailable Padalino, Donell Parsons MD Unavailable Unavailable Padalino, Donell Parsons MD Unavailable Unavailable Padalino, Donell Parsons MD Unavailable Unavailable Padalino, Donell Parsons MD Unavailable Unavailable Padalino, Donell Parsons MD Unavailable Unavailable Padalino, Donell Parsons MD Unavailable Unavailable Padalino, Donell Parsons MD Unavailable Unavailable Padalino, Donell Parsons MD Unavailable Unavailable Padalino, Donell Parsons MD Unavailable Unavailable Padalino, Donell Parsons MD Unavailable Unavailable Padalino, Donell Parsons MD Unavailable Unavailable Padalino, Donell Parsons MD Unavailable Unavailable Padalino, Donell Parsons MD Unavailable Unavailable Padalino, Donell Parsons MD Unavailable Unavailable Padalino, Donell Parsons MD Unavailable Unavailable Padalino, Donell Parsons MD Unavailable Unavailable Padalino, Donell Parsons MD Unavailable Unavailable Padalino, Donell Parsons MD Unavailable Unavailable Padalino, Donell Parsons MD Unavailable Unavailable Padalino, Donell Parsons MD Unavailable Unavailable Padalino, Donell Parsons MD Unavailable Unavailable Padalino, Donell Parsons MD Unavailable Unavailable Padalino, Donell Parsons MD Unavailable Unavailable Padalino, Donell Parsons MD Unavailable Unavailable Padalino, Donell Parsons MD Unavailable Unavailable Padalino, Donell Parsons MD Unavailable Unavailable Padalino, Donell Parsons MD Unavailable Unavailable Padalino, Donell Parsons MD Unavailable Unavailable Padalino, Donell Parsons MD Unavailable Unavailable Padalino, Donell Parsons MD Unavailable Unavailable Padalino, Donell Parsons MD Unavailable Unavailable Padalino, Donell Parsons MD Unavailable Unavailable Padalino, Donell Parsons MD Unavailable Unavailable Padalino, Donell Parsons MD Unavailable Unavailable Padalino, Donell Parsons MD Unavailable Unavailable Padalino, Donell Parsons MD Unavailable Unavailable Padalino, Donell Parsons MD Unavailable Unavailable Padalino, Donell Parsons MD Unavailable Unavailable Padalino, Donell Parsons MD Unavailable Unavailable Padalino, Donell Parsons MD Unavailable Unavailable Padalino, Donell Parsons MD Unavailable Unavailable Padalino, Donell Parsons MD Unavailable Unavailable Matt Oswald MD Unavailable Unavailable Matt Oswald MD Unavailable Unavailable Matt Oswald MD Unavailable Unavailable Matt Oswald MD Unavailable Unavailable Matt Oswald MD Unavailable Unavailable Matt Oswald MD Unavailable Unavailable Matt Oswald MD Unavailable Unavailable Matt Oswald MD Unavailable Unavailable Matt Oswald MD Unavailable Unavailable Matt Oswald MD Unavailable Unavailable Matt Oswald MD Unavailable Unavailable Matt Oswald MD Unavailable Unavailable Matt Oswald MD Unavailable Unavailable Matt Oswald MD Unavailable Unavailable Matt Oswald MD Unavailable Unavailable Matt Oswald MD Unavailable Unavailable Matt Oswald MD Unavailable Unavailable Matt Oswald MD Unavailable Unavailable Matt Oswald MD Unavailable Unavailable Matt Oswald MD Unavailable Unavailable Matt Oswald MD Unavailable Unavailable Matt Oswald MD Unavailable Unavailable Matt Oswald MD Unavailable Unavailable Matt Oswald MD Unavailable Unavailable Matt Oswald MD Unavailable Unavailable Matt Oswald MD Unavailable Unavailable Matt Oswald MD Unavailable Unavailable Matt Oswald MD Unavailable Unavailable Matt Oswald MD Unavailable Unavailable Matt Oswald MD Unavailable Unavailable Matt Oswald MD Unavailable Unavailable Matt Oswald MD Unavailable Unavailable Matt Oswald MD Unavailable Unavailable Matt Oswald MD Unavailable Unavailable Matt Oswald MD Unavailable Unavailable Matt Oswald MD Unavailable Unavailable Matt Oswald MD Unavailable Unavailable Matt Oswald MD Unavailable Unavailable Matt Oswald MD Unavailable Unavailable Matt Oswald MD Unavailable Unavailable Matt Oswald MD Unavailable Unavailable Matt Oswald MD Unavailable Unavailable Matt Oswald MD Unavailable Unavailable Matt Oswald MD Unavailable Unavailable Matt Oswald MD Unavailable Unavailable Matt Oswald MD Unavailable Unavailable Matt Oswald MD Unavailable Unavailable Matt Oswald MD Unavailable Unavailable Matt Oswald MD Unavailable Unavailable Matt Oswald MD Unavailable Unavailable Matt Oswald MD Unavailable Unavailable Matt Oswald MD Unavailable Unavailable Matt Oswald MD Unavailable Unavailable Matt Oswald MD Unavailable Unavailable Matt Oswald MD Unavailable Unavailable Matt Oswald MD Unavailable Unavailable Matt Oswald MD Unavailable Unavailable Matt Oswald MD Unavailable Unavailable Matt Oswald MD Unavailable Unavailable Matt Oswald MD Unavailable Unavailable Matt Oswald MD Unavailable Unavailable Matt Oswald MD Unavailable Unavailable Matt Oswald MD Unavailable Unavailable Matt Oswald MD Unavailable Unavailable Matt Oswald MD Unavailable Unavailable Matt Oswald MD Unavailable Unavailable Matt Oswald MD Unavailable Unavailable Matt Oswald MD Unavailable Unavailable Matt Oswald MD Unavailable Unavailable Matt Oswald MD Unavailable Unavailable Matt Oswald MD Unavailable Unavailable Matt Oswald MD Unavailable Unavailable Matt Oswald MD Unavailable Unavailable Matt Oswald MD Unavailable Unavailable Matt Oswald MD Unavailable Unavailable Matt Oswald MD Unavailable Unavailable David, Ana ENVIRONMENTAL ENGINEER SCIENTIST ENVIRONMENTAL ENGINEER SCIENTIST Unavailable Unavailable David, A Ana ENVIRONMENTAL ENGINEER SCIENTIST Unavailable Unavailable David, A Ana ENVIRONMENTAL ENGINEER SCIENTIST Unavailable Unavailable David, A Ana ENVIRONMENTAL ENGINEER SCIENTIST Unavailable Unavailable David, A Ana ENVIRONMENTAL ENGINEER SCIENTIST Unavailable Unavailable David, A Ana ENVIRONMENTAL ENGINEER SCIENTIST Unavailable Unavailable David, A Ana ENVIRONMENTAL ENGINEER SCIENTIST Unavailable Unavailable David, A Ana ENVIRONMENTAL ENGINEER SCIENTIST Unavailable Unavailable David, A Ana ENVIRONMENTAL ENGINEER SCIENTIST Unavailable Unavailable David, A Ana ENVIRONMENTAL ENGINEER SCIENTIST Unavailable Unavailable David, A Ana ENVIRONMENTAL ENGINEER SCIENTIST Unavailable Unavailable David, A Ana ENVIRONMENTAL ENGINEER SCIENTIST Unavailable Unavailable David, A Ana ENVIRONMENTAL ENGINEER SCIENTIST Unavailable Unavailable David, A Ana ENVIRONMENTAL ENGINEER SCIENTIST Unavailable Unavailable David, A Ana ENVIRONMENTAL ENGINEER SCIENTIST Unavailable Unavailable David, A Ana ENVIRONMENTAL ENGINEER SCIENTIST Unavailable Unavailable David, A Ana ENVIRONMENTAL ENGINEER SCIENTIST Unavailable Unavailable David, A Ana ENVIRONMENTAL ENGINEER SCIENTIST Unavailable Unavailable David, A Ana ENVIRONMENTAL ENGINEER SCIENTIST Unavailable Unavailable David, A Ana ENVIRONMENTAL ENGINEER SCIENTIST Unavailable Unavailable David, A Ana ENVIRONMENTAL ENGINEER SCIENTIST Unavailable Unavailable David, A Ana ENVIRONMENTAL ENGINEER SCIENTIST Unavailable Unavailable David, A Ana ENVIRONMENTAL ENGINEER SCIENTIST Unavailable Unavailable David, A Ana ENVIRONMENTAL ENGINEER SCIENTIST Unavailable Unavailable David, A Ana ENVIRONMENTAL ENGINEER SCIENTIST Unavailable Unavailable David, A Ana ENVIRONMENTAL ENGINEER SCIENTIST Unavailable Unavailable David, A Ana ENVIRONMENTAL ENGINEER SCIENTIST Unavailable Unavailable David, A Ana ENVIRONMENTAL ENGINEER SCIENTIST Unavailable Unavailable David, A Ana ENVIRONMENTAL ENGINEER SCIENTIST Unavailable Unavailable MEAGHAN, 0000{ Unavailable Unavailable Re-disclosure Warning The records that you are about to access may contain information from federally-assisted alcohol or drug abuse programs. If such information is present, then the following federally mandated warning applies: This information has been disclosed to you from records protected by federal confidentiality rules (42 CFR part 2). The federal rules prohibit you from making any further disclosure of this information unless further disclosure is expressly permitted by the written consent of the person to whom it pertains or as otherwise permitted by 42 CFR part 2. A general authorization for the release of medical or other information is NOT sufficient for this purpose. The Federal rules restrict any use of the information to criminally investigate or prosecute any alcohol or drug abuse patient.The records that you are about to access may contain highly sensitive health information, the redisclosure of which is protected by Article 27-F of the [employer] Public Health law. If you continue you may have access to information: Regarding HIV / AIDS; Provided by facilities licensed or operated by the [facility] Office of Mental Health; or Provided by the [facility] Office for People With Developmental Disabilities. If such information is present, then the following [facility] [facility] mandated warning applies: This information has been disclosed to you from confidential records which are protected by state law. State law prohibits you from making any further disclosure of this information without the specific written consent of the person to whom it pertains, or as otherwise permitted by law. Any unauthorized further disclosure in violation of state law may result in a fine or group home sentence or both. A general authorization for the release of medical or other information is NOT sufficient authorization for further disc losure. Allergies and Adverse Reactions Type Description Substance Reaction Status Data Source(s ) Amoxicillin Amoxicillin Amoxicillin 80 MG/ML Oral Suspension Unknown Active eCW1 ([facility]) Miscellaneous allergy SEASONAL SEASONAL [facility] Drug allergy Drug allergy NKDA MEDENT (No [facility], ) Family History Family Member Name Family Member Gender Family Member Status Date o f Status Description Data Source(s) Unknown Unknown Problem MEDENT ([facility], ) Encounters Encounter Providers Location Date Indications Data Source(s ) Outpatient Attender: Issa Ontiveros MD [facility] [place] 11/02/2020 10:40:00 AM EST [facility] ([facility]) Outpatient Attender: Issa Ontiveros MDAdmitter: Issa read MD 10/25/2020 05:54:00 AM EST - 10/25/2020 09:45:00 AM EST ARTERIOVENOUS MALFORMATION OF CEREBRAL VESSELS [facility] ARTERIOVENOUS MALFORMATION OF CEREBRAL V ESSELS Patient discharged. [facility] 10/25/2020 05:54:00 AM E [facility] Outpatient Attender: Issa Ontiveros MD [facility] [place] 10/19/2020 07:20:00 AM EST MED[facility] ([facility]) Outpatient Attender: MINDI OBREGON 09/05/2020 02:34:[address] [facility] Outpatient Attender: Ana OBREGON 09/05/2020 02:3 4:[address] [facility] Outpatient Attender: MINDI OBREGON 09/05/2020 02:34:[address] [facility] Outpatient Attender: Marva Oswald MD Main office - [facility] 09/02/2020 09:00:00 AM EDT MED[facility] ([facility] [place]) Outpatient Attender: Ana OBREGON 08/14/2020 06:0 7:[address] [facility] Outpatient Attender: MINDI OBREGON 08/14/2020 06:07:[address] [facility] Outpatient Attender: MINDI OBREGON 08/09/2020 10:35:[address] [facility] Outpatient Attender: MINDI OBREGON 08/08/2020 06:32:[address] [facility] Outpatient Attender: Ana OBREGON 08/08/2020 06:3 2:[address] [facility] Outpatient Attender: MINDI MCFADDEN 08/05/2020 01:56:[address] [facility] Outpatient Attender: MINDI MCFADDEN 08/02/2020 01:12:[address] [facility] Outpatient Attender: MINDI OBREGON 07/27/2020 12:00:00 P M EDT [facility] Out[facility] Attender: Ana David OBREGON FP 07/24/2020 02:3 2:02 PM EDT [facility] Outpatient Attender: MINDI OBREGON FP 07/24/2020 02:32:01 P M EDT [facility] Outpatient Attender: Ana Hernandez MINDI FP 07/24/2020 02:3 1:03 PM EDT [facility] Outpatient Attender: MINDI OBREGON FP 07/24/2020 02:31:02 P M EDT [facility] Outpatient Attender: MINDI OBREGON FP 06/22/2020 12:56:00 P M EDT [facility] Outpatient Attender: Chelsey BOJORQUEZ FP 05/02/2020 11: 28:43 AM EDT [facility] [address] [place] [address] 04/28/2020 12:00:00 AM EDT [facility] ([facility]) Outpatient Attender: Chelsey BOJORQUEZ FP 04/10/2020 02: 00:04 PM EDT [facility] Attender: MINDI OBREGON FP 04/01/2020 11:29:01 AM EDT [facility] Attender: MINDI OBREGON FP 03/31/2020 02:48:03 PM EDT [facility] Attender: Chelsey BOJORQUEZ FP 03/31/2020 02: 48:03 PM EDT [facility] Attender: MINDI OBREGON FP 03/31/2020 02:48:02 PM EDT [facility] Outpatient Attender: MINDI OBREGON FP 03/31/2020 01:59:00 PM EDT [facility] Outpatient Attender: MINDI OBREGON FP 03/29/2020 09:48:01 AM EDT [facility] Outpatient Attender: Chelsey BOJORQUEZ FP 03/27/2020 07: 55:01 PM EDT [facility] Outpatient Attender: MINDI OBREGON FP 03/25/2020 01:18:01 PM EDT [facility] Outpatient Attender: MINDI OBREGON FP 03/25/2020 10:48:[address] [facility] Outpatient Attender: MINDI OBREGON FP 03/25/2020 10:47:01 AM EDT [facility]patient Attender: MINDI OBREGON FP 03/25/2020 10:46:00 AM EDT [facility] Outpatient Attender: MINDI OBREGON FP 03/25/2020 10:20:[address] [facility] Outpatient Attender: MINDI OBREGON FP 03/25/2020 10:11:01 AM EDT [facility] Outpatient Attender: MINDI OBREGON FP 03/25/2020 10:09:[address] [facility] Outpatient Attender: MINDI OBREGNO FP 03/23/2020 03:45:[address] [facility] Outpatient Attender: Chelsey BOJORQUEZ FP 03/14/2020 02: 07:[address] [facility] Outpatient Attender: Chelsey MCFADDEN 03/08/2020 01: 52:[address] [facility] Outpatient Attender: Chelsey BOJORQUEZ FP 02/26/2020 03: 31:[address] [facility] Outpatient Attender: Chelsey BOJORQUEZ FP 02/17/2020 10: 05:[address] [facility] Outpatient Attender: Chelsey BOJORQUEZ FP 02/10/2020 02: 22:[address] [facility] Outpatient Attender: Chelsey BOJORQUEZ FP 02/06/2020 06: 02:[address] [facility] Outpatient Attender: Chelsey BOJORQUEZ FP 02/05/2020 10: 31:59 AM EDT [facility] [address] [place] [address] 02/04/2020 12:00:00 AM EDT eC ([facility]) Outpatient Attender: MINDI OBREGON FP 02/03/2020 12:00:[address] [facility] Outpatient Attender: MINDI OBREGON FP 02/02/2020 03:54:[address] [facility] Outpatient Attender: MINDI MCFADDEN 02/02/2020 11:28:[address] [facility] Outpatient Attender: MINDI OBREGON FP 02/02/2020 10:31:01 AM EDT [facility] [address] [place] [address] 01/28/2020 12:00:00 AM EDT eCW1 ([facility]) Outpatient Attender: MINDI OBREGON FP 01/15/2020 08:41:[address] [facility] Outpatient Attender: MINDI OBREGON FP 01/14/2020 03:29:[address] [facility] Outpatient Attender: Chelsey Saman OBREGON-BC FP 01/14/2020 03: 28:[address] [facility] Outpatient Attender: MINDI OBREGON FP 01/13/2020 03:57:01 PM EDT [facility] [address] [place] [address] 12/28/2019 12:00:00 AM EST eCW1 ([facility]) [facility] [address] [place] [id number] 11/11/2019 12:00:00 AM EST eCW1 ([facility]) [facility] [address] [place] [address] 11/02/2019 12:00:00 AM EST eCW1 ([facility]) [facility] [address] [place] [address] 10/23/2019 12:00:00 AM EST eCW1 ([facility]) [facility] [address] [place] [address] 10/14/2019 12:00:00 AM EST eCW1 ([facility]) Outpatient Attender: MUKESH CULP, MSN EMERGENCY JERRY M-LAB 08/13/2017 09:31:00 AM EDT - 08/13/2017 09:31:00 AM EDT [facility] Immunizations Vaccine Date Status Description Data Source(s) New in 2011. IIV4 08/02/2020 01:35:00 PM EDT completed MEDENT ([facility] ) Depo-Provera 150mg/1mL (Medroxy-Progestrone Acetate) 020 02:02:00 PM EDT completed eCW1 ([facility]) Medications Medication Brand Name Start Date Product Form Dose Route Admi nistrative Instructions Pharmacy Instructions Status Indications Reaction Description Data Source(s) medroxyprogesterone acetate 150 MG/ML Injectable Suspe nsion [Depo-Provera] Depo-Provera 08/02/2020 12:00:00 AM EDT completed MEDENT ([facility] ) Cholecalciferol 12171 UNT Oral Capsule Vitamin D3 03/31/2020 12:0 0:00 AM EDT ORAL completed MEDENT ([facility], ) medroxyprogesterone acetate 150 MG/ML In jectable Suspension [Depo-Provera] Depo- Provera 150 MG/ML Depo-Provera 150 MG/ML 01/28/2020 12:00:00 AM EDT active 1 ml eCW1 ([facility]) Insurance Providers Payer name Policy type / Coverage type Policy ID Covered constitution party ID Covered constitution party's relationship to haider Policy Haider Plan Information [place] [id number] SP [id number] [place] CARE HEA [id number] S [id number] EMED[place] [id number] SP [id number] DEPT [facility] [id number] CHILD [id number] Medicaid S [id number] S [id number] D Managed Care [place] ([employer]) O [id number] S [id number] Medicaid Dental O [id number] S [id number] Managed Care [place] P [id number] S [id number] MEDICAID [id number] SP [id number] Medicaid S [id number] S [id number] [place] [id number] S [id number] Self Pay P UNAVAILABLE S UNAVAILA BLE [place] [id number] SP [id number] [facility] [place] [id number] SP [id number] [place] CARE MEDICAID [id number] S [id number] ANSI-Medicaid [id number] ANSI-Commercial [id number] ANSI-Commercial [id number] ANSI-Commercial [id number] [place] CARE MEDICAID [id number] S [id number] DEPT PROGRAM [id number] S [id number] MEDICAID [id number] S [id number] [facility] MEDICAID [id number] S [id number] Medicaid [facility] Part B [id number] Self [id number] [place] Care [place] Medicaid [id number] Self [id number] Commercial [id number] Self [id number] DEPT PROGRAM [facility] [id number] ANSI-Commercial [id number] ANSI-Commercial [id number] ANSI-Medicaid [id number] ANSI-Commercial [id number] Medicaid [facility] Part B [id number] Self [id number] [place] Medicaid [id number] Self [id number] [facility] Commercial [id number] Self [id number] ANSI-Commercial [id number] ANSI-Commercial [id number] ANSI-Medicaid [id number] ANSI-Commercial [id number] ANSI-Commercial [id number] ANSI-Commercial [id number] ANSI-Medicaid [id number] ANSI-Commercial [id number] ANSI-Commercial [id number] ANSI-Commercial [id number] ANSI-Medicaid [id number] ANSI-Commercial [id number] Medicaid [facility] B [id number] Self [id number] [place] Medicaid [id number] Self [id number] Commercial [id number] Self [id number] [facility] MEDICAID [id number] S [id number] ANSI-Commercial [id number] ANSI-Medicaid [id number] ANSI-Commercial [id number] ANSI-Commercial [id number] Medicaid [place] Medigap Part B [id number] Self [id number] [place] Medicaid [id number] Self [id number] Commercial [id number] Self [id number] O [id number] S [id number] ANSI-Commercial [id number] ANSI-Commercial [id number] ANSI-Commercial [id number] ANSI-Medicaid [id number] ANSI-Commercial [id number] ANSI-Commercial [id number] ANSI-Medicaid [id number] ANSI-Commercial [id number] ANSI-Commercial [id number] ANSI-Commercial [id number] ANSI-Commercial [id number] ANSI-Medicaid [id number] MEDICAID M [id number] S [id number] SELF PAY ONLY [id number] SELF PAY [id number] S [id number] [facility] [id number] SP [id number] [place] [id number] SP [id number] [facility] MEDICAID MCD HMO [id number] S [id number] [place] [id number] CHILD [id number] [place] [id number] CHILD [id number] [place] [place] [id number] CHILD [id number] SELF PAY SP UNAVAILABLE S UNAVAILA BLE Problems, Conditions, and Diagnoses Code Display Name Description Problem Type Effective Dates Data Source(s) N91.2 Amenorrhea, unspecified Absence of menstruation 09/05/2020 02:33:[address] [facility] [id number] Migraine Migraine Problem 09/02/2020 12:00:00 AM ED T BLACK ([facility]) V65.8 Person consulting for explanation of exa mination or test findings Person consulting for explanation of examination or test findings 08/07/2020 11:00:[address] [facility] V04.81 Needs vaccination for influenza Needs vaccination for influenza 08/05/2020 01:54:[address] [facility] V04.81 Needs influenza immunization Needs influenza immunizat ion 08/02/2020 01:11:[address] [facility] V25.49 Encounter for surveillance of injectable contraceptive Encounter for surveillance of injectable contraceptive 08/02/2020 01:11:[address] [facility] [id number] Migraine with aura, not intractable, wit hout status migrainosus Migraine with aura, not intractable, without status migrainosus 08/02/2020 01:11:[address] [facility] V70.0 Encounter for general adult medical exam ination with abnormal findings Encounter for general adult medical examination with abnormal findings 03/31/2020 02:46:[address] [facility] 268.9 vitamin D deficiency vitamin D deficiency 03/31 02:46:[address] [facility] R73.03 Prediabetes Prediabetes 03/31/2020 02:46:[address] [facility] V70.0 Health Screening Health Screening 02/02/2020 11 :27:[address] [facility] 300.09 Anxiety depression Anxiety depression 03/31/202 0 11:27:[address] [facility] Z34.80 care Supervision of other normal Angi quiñones 10/12/2019 12:00:00 AM EST eCW1 ([facility]) Surgeries/Procedures Procedure Description Date Indications Data Source(s) Angiography Internal Corotid Of The Ipsil Intrac Circulation 10/25/2020 12:00:00 AM EST [facility]ENT ([facility]) Vertebral Artery Catheter Placement 10/25/2020 12:00:0 0 AM EST [facility] ([facility]) External Artery Carotid Cath PLMNT 10/25/2020 12:00:00 AM EST MEDENT ([facility]) Moderate Sedation Services; Same Phys Intl 15 Mins; PT >= 5 Years 10/25/2020 12:00:00 AM EST MEDENT ([facility]) Magnetic Resonance Angiogtaphy Head W/O Contrast Material(S) 09/13/2020 12:00:00 AM EST MEDENT ([facility] Magnetic Resonance Angiogtaphy Head W/O Contrast Material(S) 09/13/2020 12:00:00 AM EST MEDENT ([facility]) MRI BRAIN BRAIN STEM W/O CONTRAST MATERIAL 09/13/2020 12:00:00 AM EST MEDENT ([facility]) MRI BRAIN BRAIN STEM W/O CONTRAST MATERIAL 09/13/2020 12:00:00 AM EST MEDENT ([facility] ) THER/PROPH/DIAG INJ, SC/IM 02/04/2020 12:00:00 AM EDT eCW1 ([facility]) URINE TEST 02/04/2020 12:00:00 AM EDT eCW1 ([facility]) Injection, medroxyprogesterone acetate, 1 mg 0 12:00:00 AM EDT eCW1 ([facility]) OB Visit 11/11/2019 12:00:00 AM EST e CW1 ([facility]) TDAP 0.5mL ([facility]) 10/14/2019 12:00:00 AM EST eCW1 ([facility]) IMMUNIZATION ADMIN 10/14/2019 12:00:00 AM EST eCW1 ([facility]) Results ID Date Data Source [id number] 10/25/2020 10:26:00 AM EST Meaghan Gary al DATE OF EXAM: 10/25/2020Date of Procedur e: 10/25/2020Preoperative Diagnosis: Evaluate for left parietal-occipital AVMPostoperative Diagnosis: Evaluate for left parietal-occipital AVM Procedure(s):1. Diagnostic cerebral angiogram: - Bilateral CCA cervical (2D); Bilateral ECA/ICA cerebral (2D); Left subclavian cervical (2D); Left vertebral cervical/cerebral (2D); Right femoral runoff (2D)2. Conscious sedation for 21 minutes3. Right femoral 6F AngioSeal device placed for arteriotomy closure Surgeon: Issa Ontiveros MDAssistant: RT Jordan Prior problems with sedation: NonePotential drug/sedative interactions: NoneAllergies: Amoxicillin Mallampati class IASA class II Medications/Sedation: 1 mg of versed IV; 50 mcg of fentanyl IV; 4mg Zofran IV Indication: Mrs. Gabriela Hastings is a very pleasant 20 year-old female who was referred by Dr. 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 She says that she developed headaches last year which occur after what she describes as a blinding light as if a camera flash is continuously being shined into her eyes, and this seems to affect the right visual field more than the left visual field. This does seem to be consistent with possible focal symptoms that localize to the left occipital lobe. She also says that occasionally she has transient periods where she is unable to understand language very well, as if somebody is speaking any foreign language even though they are speaking in her [place] language of [place]. This also seems to localize to the left temporal parietal region near Wernicke's area, which is adjacent to the location of an arteriovenous malformation which was identified on an MRA head study recently. A formal diagnostic cerebral angiogram study was offered for further workup of this finding. The risks, benefits and alternatives of this procedure were explained to the patient and her questions were answered to her satisfaction. She understands and agrees to proceed with the diagnostic cerebral angiogram. Written informed consent was obtained prior to proceeding with the angiogram. Procedure details: The patient was properly identified by comparing the signed consent with the name ozzie to confirm the proper medical record number, date of , and patient name and when this was confirmed the patient was placed on the [employer] biplane angio table in supine position. The right groin site was prepped and draped in usual fashion and a timeout was performed, confirming again the correct patient and procedure being performed. Conscious sedation was administered and 10 cc of 2% lidocaine without epinephrine was injected into the right groin site around the femoral artery and an arteriotomy was performed using the modified Seldinger technique with a 5 Dutch micropuncture kit. I then placed a 5 Dutch sheath into the right femoral artery without any complications or difficulties. I then placed the 4 Dutch angled glide catheter over a glide wire to the aortic arch and then removed the glide wire and double flushed the catheter by aspirating back with one saline syringe, and then flushing forward with clean heparinized saline syringe. I then accessed the right common carotid artery and performed a cervical diagnostic angiogram which demonstrates a normal right carotid bifurcation without evidence of hemodynamically significant arterial stenosis, dissection or occlusion appreciated, with normal anterograde blood flow present. I then selectively catheterized the right internal carotid artery over a gli dewire using roadmapping techniques under fluoroscopic guidance. I then performed a cerebral diagnostic angiogram from the right internal carotid artery injection which demonstrates normal filling of the right MCA and SHI territories without evidence of intracranial aneurysms, hemodynamically significant intracranial arterial stenosis or occlusion or significant vessel irregularity to clearly show vasospasm or vasculitis. There is some very subtle early venous drainage noted in the left parietal-occipital region consistent with a faint shadow of the known AVM, fed by small branches of the right PLACEMENT SPECIALIST vessels, which have collateral flow to them as seen on this right ICA injection, but there are no direct feeding vessels to the AVM from the right ICA directly. There is cross filling of contrast to the contralateral SHI territory with a widely patent anterior communicating artery present. There is a moderate sized right posterior communicating artery seen with normal anterograde filling to the right PLACEMENT SPECIALIST territory. I then selectively catheterized the right external carotid artery over a glidewire using roadmapping techniques under fluoroscopic guidance. I then performed a cerebral diagnostic angiogram from the right external carotid artery injection which demonstrates a normal right external carotid artery branching pattern without evidence of early venous drainage to clearly show an arteriovenous fistula or malformation and without any significant vascular irregularity to clearly show vasculitis. I then catheterized the left common carotid artery and performed a cervical diagnostic angiogram which demonstrates a normal left carotid bifurcation without evidence of hemodynamically significant arterial stenosis, dissection or occlusion appreciated, with normal anterograde blood flow present. I then selectively catheterized the left internal carotid artery over a glidewire using roadmapping techniques under fluoroscopic guidance. I then performed a cerebral diagnostic angiogram from the left internal carotid artery injection in AP and lateral as well as 45 degree oblique projections which demonstrates an approximately 1.5- 2cm AVM nidus with early venous drainage and a venous varix or nidal aneurysm measuring about 5mm x 6mm also visualized. There are two major left PLACEMENT SPECIALIST feeding branches to this AVM which appear to be amenable to endovascular intervention, although there are some smaller branches also noted which will not be able to be safely catheterized. There is a somewhat hypoplastic but patent left A1 segment noted. There is a large posterior communicating artery seen which is the major contributing vessel to the left parietal-occipital AVM seen. I then selectively catheterized the left external carotid artery over a glidewire using roadmapping techniques under fluoroscopic guidance. I then performed a cerebral diagnostic angiogram from the left external carotid artery injection which demonstrates a normal left external carotid artery branching pattern without e vidence of early venous drainage to clearly show an arteriovenous fistula or malformation and without any significant vascular irregularity to clearly show vasculitis. I then catheterized the left subclavian artery and performed a cervical diagnostic angiogram which demonstrates a normal left subclavian artery with normal arterial branching pattern and no hemodynamically significant focal stenosis or occlusion appreciated, with normal anterograde blood flow present. The left vertebral artery origin appears normal arising from the left subclavian artery as expected and without hemodynamically significant stenosis or occlusion or evidence of dissection. I then selectively catheterized the left vertebral artery over a glidewire using roadmapping techniques under fluoroscopic guidance. I then performed a cervical and cerebral diagnostic angiogram from the left vertebral artery injection which demonstrates a normal and smooth appearing left vertebral artery cervical segment without hemodynamically significant stenosis, occlusion or evidence of dissection. The cerebral angiogram from the left vertebral artery injection shows a normal vertebrobasilar junction and the left PLACEMENT SPECIALIST territory is not well visualized as this is largely fed by the left PLACEMENT SPECIALIST seen on the left carotid angiogram run. There are small vessels of the distal right PLACEMENT SPECIALIST which are not amenable to safe endovascular embolization which also contribute to the flow through the AVM. At the end of the procedure I then completely removed the catheter from the patient and performed a right femoral runoff to confirm that there were no complications at the femoral arteriotomy access site. Using a wire exchange technique, I removed the femoral sheath and placed a 6 Dutch AngioSeal device in the right femoral arteriotomy site without complications. The patient tolerated this procedure well. I was present for the duration of the procedure and I performed and/or directly supervised all critical components of the procedure. Total contrast: 48 cc of Omnipaque-300Total fluoro time: 2.4 minutesTotal fluoro dose: 463.62 mGy Angiographic interpretation:1. Right common carotid cervical angiography shows a normal right carotid bifurcation without evidence of hemodynamically significant arterial stenosis, dissection or occlusion appreciated, with normal anterograde blood flow present. 2. Selective right internal carotid artery catheterization with cerebral views shows normal filling of the right MCA and SHI territories without evidence of intracranial aneurysms, hemodynamically significant intracranial arterial stenosis or occlusion or significant vessel irregularity to clearly show vasospasm or vasculitis. There is some very subtle early venous drainage noted in the left parietal-occipital region consistent with a faint shadow of the known AVM, fed by small branches of the right PLACEMENT SPECIALIST vessels, which have collateral flow to them as seen on this right ICA injection, but there are no direct feeding vessels to the AVM from the right ICA directly. There is cross filling of contrast to the contralateral SHI territory with a widely patent anterior communicating artery present. There is a moderate sized right posterior communicating artery seen with normal anterograde filling to the right PLACEMENT SPECIALIST territory. 3. Selective right external carotid artery catheterization with cerebral views show a normal branching pattern of the external carotid artery on this side and no evidence of early venous drainage or focal stenoses or vasculitis. 4. Left common carotid cervical angiography shows a normal carotid bifurcation without evidence of ramírez nosis, dissection, or other vascular abnormalities, and with normal anterograde blood flow. 5. Selective left internal carotid artery catheterization with cerebral views in AP and lateral as well as 45 degree oblique projections which demonstrates an approximately 1.5-2cm AVM nidus with early venous drainage and a venous varix or nidal aneurysm measuring about 5mm x 6mm also visualized. There are two major left PLACEMENT SPECIALIST feeding branches to this AVM which appear to be amenable to endovascular intervention, although there are some smaller branches also noted which will not be able to be safely catheterized. There is a somewhat hypoplastic but patent left A1 segment noted. There is a large posterior communicating artery seen which is the major contributing vessel to the left parietal-occipital AVM seen. 6. Selective left external carotid artery catheterization with cerebral views shows normal branching pattern of the left external carotid artery and no evidence of early venous drainage or focal s tenoses, or other evidence of vasculitis. 7. Left subclavian cervical run shows a normal left vertebral artery origin without evidence of stenosis, dissection, or other vascular lesions. There is anterograde blood flow and normal branching from the left subclavian artery without any subclavian stenosis. 8. Selective left vertebral artery injection in the cervical and cerebral views shows a normal and smooth appearing left vertebral artery cervical segment without hemodynamically significant stenosis, occlusion or evidence of dissection. The cerebral angiogram from the left vertebral artery injection shows a normal vertebrobasilar junction and the left PLACEMENT SPECIALIST territory is not well visualized as this is largely fed by the left PLACEMENT SPECIALIST seen on the left carotid angiogram run. There are small vessels of the distal right PLACEMENT SPECIALIST which are not amenable to safe endovascular embolization which also contribute to the flow through the AVM. 9. Right femoral runoff angiogram showed the arteriotomy access site l ocated over the lower third of the femoral head and there is no significant peripheral vascular disease, calcification, or stenosis. The sheath was inserted above the femoral bifurcation. Impression: Mrs. Gabriela Hastings had a complete diagnostic cerebral angiogram study which demonstrates a left parietal-occipital arteriovenous malformation that is mostly fed by large left PLACEMENT SPECIALIST feeding branches which is supplied through the left carotid artery circulation via a large PComm primarily, but there are also some very small right PLACEMENT SPECIALIST distal feeding branches seen. 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 Given her young age, symptomatic presentation, and finding of this intra-nidal aneurysm, I would recommend treatment of this AVM. Endovascular embolization of the left MCA feeding branches likely followed by surgical resection versus stereotactic radiosurgery are the preferred treatment options, and we will discuss these options further in a follow-up in the office next week. She does travel from a significant distance, and this discussion can be a video visit so she does not have to make such a long trip for just a discussion of treatment options. I relayed the results of this angiogram to the patient and to her mother in the waiting area at the end of the procedure, and I answered all of their questions to their satisfaction. They understand and agree with this plan.End of diagnostic report for accession: [id number] Interpreted: Issa Ontiveros MDTranscribed: 10/25/2020 09:17 AMSigned: 10/25/2020 10:26 AM Issa Ontiveros MD [facility] # [id number] BILL # [id number] NIRR Name Value Range Interpretation Code Description Data Magalis rce(s) Supporting Document(s) ID Date Data Source [id number] 10/20/2020 12:00:00 PM EST [facility] Name Value Range Interpretation Code Description Data Magalis rce(s) Supporting Document(s) SARS coronavirus 2 RNA [facility] This lab was ordered by [facility] and reported by [employer]. ID Date Data Source [id number] 10/20/2020 12:00:00 PM EST [facility] ([facility]) Name Value Range Interpretation Code Description Data Magalis rce(s) Supporting Document(s) Laboratory test finding (navigational concept) Laboratory test result [facility] ([facility]) This nucleic acid amplification test was developed and its performance characteristics determined by [employer]. Nucleic acid amplification tests include PCR and [...] detected) result in this assay. Performed at: [facility] [address] [facility], [place] [id number] Electronic Publisher: Zayda Kim PhD, Phone: [phone] Not Detected ID Date Data Source [id number] 10/19/2020 09:39:00 AM EST [facility] ([facility]) Name Value Range Interpretation Code Description Data Magalis rce(s) Supporting Document(s) Venipuncture Laboratory test result [facility] ([facility]) aPTT in Platelet poor plasma by Coagulation assay 29.7 Sec 24.7-34. 7 [facility] ([facility]) Note normal range update due to new reag ent lot 06/16/2020 ID Date Data Source [id number] 10/19/2020 09:39:00 AM EST [facility] ([facility]) Name Value Range Interpretation Code Description Data Magalis rce(s) Supporting Document(s) Prothrombin time (PT) 15.0 Sec 10.6-13.0 Above high normal [facility] INR in Platelet poor plasma by Coagulation assay 1.3 [facility] ([facility]) * INR Interpretation : . Recommended Theraputic Range: 2.0 - 3.0 . For treatment/prophylaxis . of venous thrombosis, . prevention of embolism. . . ID Date Data Source [id number] 10/19/2020 09:39:00 AM EST [facility] ([facility]) Name Value Range Interpretation Code Description Data Magalis rce(s) Supporting Document(s) Choriogonadotropin.beta subunit [Moles/volume] in Seru m or Plasma Laboratory test result [facility] HCG Interpretation: Less Than 5.0 miu/ml - Either no HCG or too low to be clinically significant. 5.0 - 25.0 miu/ml - Equivocal result. Sh ould be repeated after 48 hours. A test result less than 25.0 should be interpreted in conjunction with other laboratory data available to the physician. Greater than 25.0 miu/ml - Clinically significant. ID Date Data Source [id number] 10/19/2020 09:39:00 AM EST [facility] ([facility]) Name Value Range Interpretation Code Description Data Magalis rce(s) Supporting Document(s) WBC. 8.22 x10E3/uL 4.2-12.0 [facility]) Hemoglobin [Mass/volume] in Blood 11.6 g/dL 12.0-16.0 Below low nor mal [facility] ([facility]) Erythrocytes [#/volume] in Blood by Automated count 5.01 x10E6/uL 3.9 -5.4 [facility] ([facility]) 1+ Microcytosis 1+ Hypochromasia 1+ Anisocytosis MCH 23.2 pg 27-33 Below low normal [facility] ([facility]) Hematocrit [Volume Fraction] of Blood by Automated count 38.2 % 3 6-47 [facility] ([facility]) MCV 76.3 fL 80-98 Below low normal [facility] ([facility]) RDW 15.3 % 11.2-15.2 Above high normal [facility] MCHC 30.4 g/dL 32-36 Below low normal [facility] ([facility]) % Michael 64.7 % 41.0-80.0 [facility] ([facility]) MPV 9.9 fL 7.0-12.3 [facility] ([facility]) Platelets [#/volume] in Blood by Automated count 248 x10E3/uL 135-420 [facility] ([facility]) %Eos 1.7 % 0.0-8.0 [facility] ([facility]) %Lym 27.3 % 10.0-45.2 [facility] ([facility]) %Ware 5.6 % 2.0-13.0 [facility] ([facility]) Lymp 2.3 x10E3/uL 0.6-3.1 [facility]) %Baso 0.6 % 0.0-3.0 [facility] ([facility]) Neut 5.3 x10E3/uL 2.0-8.1 [facility]) Ware 0.5 x10E3/uL 0.0-1.0 [facility] ([facility]) Eos 0.1 x10E3/uL 0.0-0.6 [facility]) Baso 0.1 x10E3/uL 0.0-0.2 [facility]) ID Date Data Source [id number] 10/19/2020 09:39:00 AM EST [facility] ([facility]) Name Value Range Interpretation Code Description Data Magalis rce(s) Supporting Document(s) Urea nitrogen [Moles/volume] in Serum or Plasma 12 mg/dL 6-20 [facility] ([facility]) Glucose [Mass/volume] in Serum or Plasma 97 mg/dL 74-106 [facility] ([facility]) [place] [employer] (ADA) Recommended Range is 65-99 mg/dL Potassium [Moles/volume] in Serum or Plasma 3.9 mmol/L 3.5-5.3 [facility] ([facility]) Creatinine [Mass/volume] in Serum or Plasma 0.8 mg/dL 0.5-1.3 [facility] ([facility]) Sodium [Moles/volume] in Serum or Plasma 139 mmol/L 136-145 [facility] ([facility]) Carbon dioxide, total [Moles/volume] in Serum or Plasma 26 meq/L 20 -31 [facility] ([facility]) Anion Gap 10 mmol/L 7-16 [facility]) Chloride [Moles/volume] in Serum or Plasma 103 mmol/L 98-107 [facility] ([facility]) Calcium [Mass/volume] in Serum or Plasma 9.6 mg/dL 8.9-10.5 [facility] ([facility]) eGFR-Aa female 111 mL/m/1.73m [facility] ([facility]) <content>Normal Kidney Function or Mild Disease GFR >59 mL/min/1.73m2</content>
<content>Chronic Kidney Disease GFR 15-59 mL/min/1.73m2</content>
<content>Renal Failure GFR <15 mL/min/1.73m2</content>
<content></content> eGFR-female 91 mL/m/1.73m [facility] ([facility]) ID Date Data Source [id number] 09/05/2020 02:31:[address] [facility] Name Value Range Interpretation Code Description Data Magalis rce(s) Supporting Document(s) PREG TST URN positive [facility] ID Date Data Source [id number] 08/09/2020 11:02:[address] [facility] Labs In-House Urine TestsDate/Time Colle cted: August 09, 2020 11:03 AMTest Result Reference Range Normal ValueUrine HCG: positive NegativeComments: patient was in to get started on depo injections. Did a urine test and the Patient was Positive, therefore the depo will not be injected.Trixie Sweeney, August 09, 2020 11:04 AMNurses Note Patient had a positive test today in office. Cannot give Depo injection. Patient was not happy at all and stated she cannot keep this baby as she cannot afford another baby. Patient has 2 babies at home. Labs In-House Urine TestsDate/Time Collected: 08/09/2020Test Result Reference Range Normal ValueUrine HCG: positive NegativeTrixie Sweeney, September 05, 2020 2:31 PMAssessment & Plan Prob lems:Added: Absence of menstruation (ICD-626.0) (UDT12-B75.2)Orders:43726-Axy Vst-Est Level I [CPT-20561] Name Value Range Interpretation Code Description Data Magalis rce(s) Supporting Document(s) ID Date Data Source [id number] 08/09/2020 11:02:[address] [facility] Name Value Range Interpretation Code Description Data Magalis rce(s) Supporting Document(s) PREG TST URN positive [facility] ID Date Data Source [id number] 08/02/2020 11:51:[address] [facility] Measurements & CalculationsHeight: 59 inches (4 ft. 11 in.) 149.86 cm 2 %ileWeight: 150.4 pounds 68.36 kg 81 %ileBody Mass Index (BMI): 30.49 94 %tileBMI Interpretation: ObeseBody Surface Area (BSA): 1.64Weight Management Education Done (Nutrition/Physical Activity)Vital SignsTemperature: 98.4FPulse Rate: 66 beats/minuteRespiratory Rate: 16 respirations/minuteBlood Pressure: 100/70 O2 Saturation: 99% Vital Signs performed by: Justine Mcintyre MA, August 02, 2020 12:08 PMVital Signs performed by: Justine Mcintyre MA, August 02, 2020 12:08 PMInitial Intake Information From: patientRoom #: 8Infectious Disease / Travel ScreeningRecent travel for you or any close contacts? NoHave you had any close contact with anyone diagnosed with or under investigation for COVID-19 (coronavirus)? NoFever? NoRespiratory symptoms: cough, cold, congestion, shortness of breath, difficulty breathing? NoLoss of smell? NoLoss of taste? NoSmoking, Tobacco, Vaping or Smoke Exposure StatusSmoke Status: never smokerTobacco Use: NoDo you vape? NoPassive Smoke Exposure: YesPassive Smoke Exposure comments: boyfriend, familyMenstrual HistoryLast Menstrual Period (LMP): 06/29/2020LMP History: ApproximateAny possibility of ? YesHealthcare HistorySince your last office visit...Have you been admitted to the hospital? NoHave you been to an emergency room (ER) or urgent care clinic? NoHave you seen another healthcare provider? NoHave you seen a dentist? NoIntake performed by: Justine Mcintyre MA, August 02, 2020 11:55 AMRate Your HealthIn general, would you say your health is? GoodPain AssessmentAre you currently having any pain which... You would like your provider to address? Yes Affects your activity level? YesDepression Screening - PHQ-2Over the last two weeks, have you... Had little interest or pleasure in doing things? Nearly every day Been feeling down, depressed, or hopeless? Nearly every day PHQ-2 Score: 6Anxiety Screening - JACOB-2Over the last two weeks, have you been... Feeling nervous, anxious, or on edge? Several days Unable to stop or control worrying? Nearly every day JACOB-2 Score: 4Food InsecurityWithin the past year...Did you worry whether your food would run out before you got money to buy more? Sometimes trueWas there a time when the food you bought didn't last and you didn't have money to get more? Sometimes trueGeneralized Anxiety Disorder 7-Item Screening (JACOB-7)Answer Guide:0 = Not at all1 = Several days2 = Over half the days3 = Nearly every dayOver the last 2 weeks, how often have you been bothered by the following problems?Feeling nervous, anxious, or on edge: 1Not being able to stop or control worryinWorrying too much about different things: 3Trouble relaxinBeing so restless that it's hard to sit still: 0Becoming easily annoyed or irritable: 0Feeling afraid as if something awful might happen: 1Answer Guide:0 = Not difficult at all1 = Somewhat difficult2 = Very difficult3 = Extremely difficultHow difficult have these made it for you to do your work, take care of things at home, or get along with other people? 1GAD-7 Screening Results JACOB-2 Score: 4GAD-7 Score: 9Functional Impairment: Somewhat difficultRecommendation: Mild anxietyPHQ-9 1. Over the last 2 weeks, patient reports the following frequency of symptoms: a. Little interest or pleasure in doing things - Nearly every day b. Feeling down, depressed, or hopeless -Nearly every day c. Trouble falling asleep, staying asleep, or sleeping too much -Several days d. Feeling tired or having little energy -Nearly every day e. Poor appetite or overeating -Several days f. Feeling bad about yourself, feeling that you are a failure, or feeling that you have let yourself or your family down -Not at all g. Trouble concentrating on things such as reading the newspaper or watching television -Not at all h. Moving or speaking so slowly that other people could have noticed. Or being so fidgety or restless that you have been moving around a lot more than usual - Several days i. Thinking that you would be better off or that you want to hurt yourself in some way -Not at all2. If you checked off any problems, how difficult have these problems made it for you to do your work, take care of things at home, or get along with other people? -Somewhat DifficultToday's PHQ-9 Results Score: 12 Severity: Moderate Diagnosis Recommendation: Other Depression Functional Impairment: Somewhat DifficultToday's Follow-Up Action Depression follow-up done. Follow-Up Action: Pt states anxiety depression improvingPain AssessmentPain ScaleNumeric Rating Scale: 0 / 10Location: back of headDuration: 2 yearsFrequency: MonthlyCharacter/Quality: aching, sharp, stabbing, pressure and pinchingIs the pain radiating? YesTo what body part(s) is the pain radiating? moves from back all over headScreening, Brief Intervention, & Referral to Treatment (SBIRT)Pre-Screening Questions How many times have you have 4 or more drinks in a day? 0How many times have you used an illegal drug or used a prescription medication for a non-medical reason? 0Performed by: Justine Mcintyre MA, August 02, 2020 12:03 PMPatient History Medical History:Bi-PolarMajor Depressive DisorderWeight issuesSurgical History:wisdom teeth extractionFamily History:diabetes-paternal family historyfather-hasimoto thyroiditisSocial/Personal History: Chief Complaintfollow-up visit labs room 8History of Present Illness (HPI)19 YO female here for lab follow up. Patient compains of migraines once or twice a month.Pt states migraine started after about two years ago after she strained herself carrying a wheel [place]. Pt would like a referral to see a neurologist. Patient would like to have a flu vaccine t ro. Pt states tolerated Depo in the past would like to restart taking. Pt states presently sexually active with one partner. HPI performed by: Ana OBREGON, August 02, 2020 12:32 PMProblem ReviewProblem List was reviewed and/or updated during this visit.Medication Reconciliation & ReviewMedication List was reviewed and/or updated during this visit, including review of any [id number] medications, herbal therapies, and/or supplements.Allergy ReviewAllergy List was reviewed and/or updated during this visit.Adult Preventive CareProvider Calculated and Reviewed all Clinical Protocols for patient today. Labs/Meds/Other Counseling-Nutrition and Physical Activity:BMI Interpretation: Obese (08/02/2020) Counseling: Done (08/02/2020) Physical Activity: Done (08/02/2020)Review of Systems General: Denies loss of appetite, chills, dizziness, fatigue, fever, continued fever, headache, feeling ill, sweats, night sweats, sleep disturbances, weight loss. Eyes: Denies blurring of vision, double vision, irritation, discharge, vision loss, eye pain, eye swelling, droopy eyelid, sensitivity to light, redness, itching. Ears/Nose/Throat: Denies earache, ear discharge, ringing in ears, decreased hearing, nasal congestion, nosebleeds, runny nose, sore throat, hoarseness, difficulty swallowing, dry mouth, tooth pain, bleeding gums, swollen glands. Cardiovascular: Denies chest pain, palpitations, feeling faint, trouble breathing w/exertion, SOB upon lying down, SOB at night, peripheral edema, elevated blood pressure, decreased heart rate. Respiratory: Denies cough, difficulty breathing, shortness of breath, excessive sputum, coughing up blood, wheezing, chest pain. Breast: Denies discoloration, tenderness, breast changes, breast lump, nipple discharge. Gastrointestinal: Denies nausea, vomiting, bleeding, burning, itching, irritation, cramps, diarrhea, constipation. Genitourinary: Denies urinary incontinence, pain with urination, burning with urination, urinary frequency, urinary hesitancy, urinary urgency, urinary urgency at night, incomplete emptying, blood in urine, pelvic pain. Musculoskeletal: Denies back pain, joint pain, leg pain, other pain-see comments, joint swelling, body aches, muscle aches, muscle cramps, muscle weakness, stiffness, recent injury. Skin: Denies rash, hives, redness, itching, dryness, nail changes, suspicious lesions, athlete's foot, rash on palms, rash on bottom of feet. Neurologic: Denies muscle impairment, weakness, numbness/tingling, seizures, slurred speech, feeling faint, tremors, vertigo, paralysis on one side, paralysis on both sides. Psychiatric: Complains of depression, anxiety. Denies memory loss, mental disturbance, suicidal ideation, homicidal ideation, hallucinations, paranoia, feeling stressed, hearing voices. Endocrine: Denies cold intolerance, heat intolerance, excessive thirst, excessive hunger, excessive urination, weight loss, weight gain. Physical ExamGeneral Appearance: well nourished, well hydrated, no acute distressEyes, External: conjunctivae and lids normal, EOMIRespiratory, Auscultation: clear to auscultation bilaterally; no rales, rhonchi, or wheezesRespiratory, Effort: no intercostal retractions or use of accessory musclesCardiovascular, Auscultation: S1, S2 audible; no murmur, rub, or gallop; RRRPeripheral Circulation: no clubbing, cyanosis, edema, or varicositiesAbdomen: soft, non-tender, no masses, bowel sounds normalGait & Station: normalSkin, Inspection: no rashes, lesions, or ulcerationsOrientation: oriented to time, place, and personMood & Affect: no depression, anxiety, or agitationJudgment & Insight: intactRate Your HealthIn general, would you say your health is? GoodAssessment & Plan Problems:Added: Encounter for surveillance of injectable contraceptive (ICD-V25.49) (YLJ38-C67 .42) Assessment: Pt states Tolerated Depo prevera well in the past. Would like to restart taking it. Instructions: Please pick up attendant medication at pharmacy and return for a nurse visit to have medication administered. Negative test is required prior.Migraine with aura, not intractable, without status migrainosus (SSJ88-D04.109) Assessment: Instructions: We have made a referral for you today. We will contact you to set this up. .Needs influenza immunization (ICD-V04.81) (YYH56-G27.3) Assessment: Instructions: You have had your flu vaccine done today. Please report any adverse reactions.Needs vaccination for influenza (ICD-V04.81) (QYN57-H12) Assessment: Instructions: Flu vaccine given today.Person consulting for explanation of examination or test findings (ICD-V65.8) (ABR83-O56.2) Assessment: Instructions: We have reviewed your lab results with you today. Lab results unremarkable. Please continue healthy diet and physical activities.Assessed:Encounter for general adult medical examination with abnormal findings (ICD-V70.0) (GXW33-R37.01) Assessment: Instructions: We have reviewed your lab results with you todayAnxiety depression (ICD-300.09) (RVF92-G87.8) Assessment: Instructions: Please continue to monitor, report and avoid triggers causing increased anxiety and or depression.Encounter for general adult medical examination with abnormal findings (ICD-V70.0) (ICD10- Z00.01) Assessment: Instructions: Physical exam done today.Prediabetes (BFK12-R39.03) Assessment: Instructions: HGAc . this indicates normal blood sugar. Please continue healthy diet and physical activities. Please try to limit sugars and carbohydrates in your dietPlease try to maintain adequate intake of water daily.Patient Instructions/Care Plan: Encounter for surveillance of injectable contraceptive: Please pick up attendant medication at pharmacy and return for a nurse visit to have medication administered. Negative test is required prior.Migraine with aura- not intractable- without status migrainosus: We have made a referral for you today. We will contact you to set this up. .Needs influenza immunization: You have had your flu vaccine done today. Please report any adverse reactions.Encounter for general adult medical examination with abnormal findings: We have reviewed your lab results with you todayNeeds vaccination for influenza: Flu vaccine given today.Anxiety depression: Please continue to monitor, report and avoid triggers causing increased anxiety and or depression.Person consulting for explanation of examination or test findings: We have reviewed your lab results with you today. Lab results unremarkable. Please continue healthy diet and physical activities.Encounter for general adult medical examination with abnormal findings: Physical exam done today.Pr ediabetes: HGAc . this indicates normal blood sugar. Please continue healthy diet and physical activities. Please try to limit sugars and carbohydrates in your dietPlease try to maintain adequate intake of water daily. Plan developed in collaboration with patient and/or familyMedications:DEPO-PROVERA 150 MG/ML INTRAMUSCULAR SUSPENSIONVITAMIN D3 21132 UNIT ORAL TABLETMedication Changes:New Prescription:DEPO-PROVERA 150 MG/ML INTRAMUSCULAR SUSPENSION-inject IM every three months. Qty: 1[Syringe] Refills: 3 Method: ElectronicAllergies:PENICILLIN (Critical)AMOXICILLIN (Critical)* SEASONAL ( Mild)Orders:Neurology Consult [CPT-38756] URINE TEST [CPT-92858] Administration of Influenza Virus Vaccine [CPT-G0008] FluLaval Quadrivalent, preservative free [CPT-57108] 80956 - Immo Admin (over 19 yrs), 1st Vaccine [CPT-60804] URINE TEST [CPT-52352] COMP METABOLIC PANEL [CPT-76951] CBC W/DIFF [CPT-80097] Vitamin D 250H Unspecified [CPT-78105] Adult - Ofc Vst, EST, Level IV [CPT-27197] Follow-Up Return to clinic: 6 months for follow up. Clinical Visit Summary CompletedMedications:DEPO-PROVERA 150 MG/ML INTRAMUSCULAR SUSPENSION (MEDROXYPROGESTERONE ACETATE) inject IM every three months. #1[Syringe] x 3 Route:INTRAMUSCULAR Entered and Authorized by: Ana OBREGON Method used: Electronically to [facility]* (retail) [address] [place] [address] Note to Pharmacy: Route: INTRAMUSCULAR; Indications: ENCOUNTER FOR SURVEILLANCE OF INJECTABLE CONTRACEPTIVE RxID: [id number] Questionnaire1) Does the patient have a long-term health problem with heart disease, lung disease, asthma, kidney disease, metabolic disease (e.g., diabetes), anemia, or other blood disorder? No2) Does the patient have allergies to medications, food, a vaccine component, or latex? No3) Does the patient have cancer, leukemia, AIDS, or any other immune system problem? No4) Does the patient live with or expect to have close contact with a person whose immune system is severely compromised and who must be in protective isolation (e.g., an isolation room of a bone marrow transplant unit)? No5) Does the patient take cortisone, prednisone, other steroids, or anticancer drugs, or has the patient had radiation treatments? No6) During the past year, has the patient received a transfusion of blood or blood products, or been given immune (gamma) globulin or an antiviral drug? No7) For women: Is the patient or is there a chance she could become during the next month? No8) Has the patient ever had a serious reaction to a vaccine in the past? No9) Has the patient had a seizure or a brain or other nervous system problem? No10) Has the patient received any vaccinations in the past 4 weeks? No11) Is the patient older than age 49 years? No12) Is the patient sick today? No13) Vaccine information given and explained to patient? YesVaccines Administered/Entered:Vaccination Group: InfluenzaSeries: 2Vaccination: Flulaval Quadrivalent Intramuscular Suspension Prefilled Syringe 0.5 MLMfr / Lot# / Exp.Date: [employer] / [id number] 1Amt. Given / Route / Site: 0.5 mL / IM / Left DeltoidNDC / CVX: [id number] / 150Administered Date: 08/02/2020 13:35VFC Eligibility: Not VFC EligibleVIS Date: 06/18/2019VIS Given / VIS Given On: Yes / 08/02/2020Comments: Administered by: Ladi Long LPN Name Value Range Interpretation Code Description Data Magalis rce(s) Supporting Document(s) ID Date Data Source [id number] 06/22/2020 11:30:[address] [facility] In-House Blood TestsDate/Time Colle cted: June 22, 2020 9:30 AMTest Result Reference Range Normal ValueComments: taken from right ac, tolerated well.Trixie Sweeney, June 22, 2020 11:31 AMAssessment & Plan Orders:[id number] Vst-Est Level I [CPT-87081] 84541 - Venipuncture [CPT- 70302] Name Value Range Interpretation Code Description Data Magalis rce(s) Supporting Document(s) ID Date Data Source [id number] 06/22/2020 09:30:[address] [facility] Name Value Range Interpretation Code Description Data Magalis rce(s) Supporting Document(s) HCT 37.7 % 36.0-47.[address] [facility] HGB 11.4 g/dL 12.0-15.[address] [facility] MCH 30.2 G/DL pg 32.0-36.5 L [facility] MCHC 22.5 PG % 27.0-33.[address] [facility] PLATELETS 233 10 10*3/mm3 150-[address] [facility] RBC 5.06 10 10*6/mm3 4.00-5.40 [facility] RDW 17.2 % 11.5-14.[address] [facility] WBC TOTAL 7.7 4.0-10.0 [facility] ID Date Data Source [id number] 06/22/2020 09:30:[address] [facility] Name Value Range Interpretation Code Description Data Magalis rce(s) Supporting Document(s) VIT D25 TOT 25.1 ng/mL 30.0-100.0 L [facility] BG FASTING 98 mg/dL 70-100 N [facility] ID Date Data Source [id number] 06/22/2020 09:30:[address] [facility] Name Value Range Interpretation Code Description Data Magalis rce(s) Supporting Document(s) HGBA1C 5.5 % N [facility] ID Date Data Source [id number] 03/31/2020 01:59:[address] [facility] Measurements & CalculationsHeight: 59 inches 149.86 cm 2 %ileWeight: 146 pounds 66.36 kg 77 %ileBody Mass Index (BMI): 29.60 93 %tileBMI Interpretation: OverweightBody Surface Area (BSA): 1.61Weight Management Education Done (Nutrition/Physical Activity)Vital SignsTemperature: 97.6F 36.44C tympanic Pulse Rate: 78 beats/minuteRespiratory Rate: 12 respirations/minuteBlood Pressure: 121/80 left arm sitting automaticO2 Saturation: 99% room airVital Signs performed by: La Licona , March 31, 2020 2:05 PMInitial Intake Information From: patientRoom #: 9Infectious Disease / Travel ScreeningRecent travel for you or any close contacts? NoHave you had any close contact with anyone diagnosed with or under investigation for COVID-19 (coronavirus)? NoFever? NoRespiratory symptoms: cough, cold, congestion, shortness of breath, difficulty breathing? NoLoss of smell? NoLoss of taste? NoSmoking, Tobacco, Vaping or Smoke Exposure StatusSmoke Status: never smokerTobacco Use: NoDo you vape? NoPassive Smoke Exposure: NoMenstrual HistoryComments: on depoHealthcare HistorySince your last office visit...Have you been admitted to the hospital? NoHave you been to an emergency room (ER) or urgent care clinic? NoHave you seen another healthcare provider? NoHave you seen a dentist? Yes - ncfhcIntake performed by: La Licona , March 31, 2020 2:02 PMRate Your HealthIn general, would you say your health is? FairPain AssessmentAre you currently having any pain which... You would like your provider to address? No Affects your activity level? NoDepression Screening - PHQ-2Over the last two weeks, have you... Had little interest or pleasure in doing things? Not at all Been feeling down, depressed, or hopeless? Not at all PHQ-2 Score: 0Anxiety Screening - JACOB-2Over the last two weeks, have you been... Feeling nervous, anxious, or on edge? Not at all Unable to stop or control worrying? Not at all JACOB-2 Score: 0Food InsecurityWithin the past year...Did you worry whether your food would run out before you got money to buy more? NoWas there a time when the food you bought didn't last and you didn't have money to get more? NoScreening, Brief Intervention, & Referral to Treatment (SBIRT)Pre-Screening Questions How many times have you have 4 or more drinks in a day? 0How many times have you used an illegal drug or used a prescription medication for a non-medical reason? 0Performed by: La Licona , March 31, 2020 2:02 PMPatient History Medical His tory:Bi-PolarMajor Depressive DisorderWeight issuesSurgical History:wisdom teeth extractionFamily History:diabetes-paternal family historyfather-hasimoto thyroiditisSocial/Personal History: Chief ComplaintlabsHistory of Present Illness (HPI)19 yo female here today for follow up visit and review of lab results. Pt states issues with scheduling therapy visit due being busy with children at home, Pt mother of 4 month old son and 18 months old daughter. Pt states healthy diet and pohysical activities. Pt denies any smoking. Pt denies illicit drug use. Pt denies alcoholism. Pt states good family support also good support from children's father. HPI performed by: Ana OBREGON, March 31, 2020 2:25 PMTransitions of Care InboundProblem ReviewProblem List was reviewed and/or updated during this visit.Medication Reconciliation & ReviewMedication List was reviewed and/or updated during this visit, including review of any ocul-fke-xmppajw medications, herbal therapies, and/or supplements.Allergy ReviewAllergy List was reviewed and/or updated during this visit.Adult Preventive CareProvider Calculated and Reviewed all Clinical Protocols for patient today. Labs/Meds/Other Counseling-Nutrition and Physical Activity:BMI Interpretation: Overweight (03/31/2020) Counseling: Done (03/31/2020) Physical Activity: Done (03/31/2020)Review of Systems General: Denies loss of appetite, chills, dizziness, fatigue, fever, continued fever, headache, feeling ill, sweats, night sweats, sleep disturbances, weight loss. Eyes: Denies blurring of vision, double vision, irritation, discharge, vision loss, eye pain, eye swelling, droopy eyelid, sensitivity to light, redness, itching. Ears/Nose/Throat: Denies earache, ear discharge, ringing in ears, decreased hearing, nasal congestion, nosebleeds, runny nose, sore throat, hoarseness, difficulty swallowing, dry mouth, tooth pain, bleeding gums, swollen glands. Cardiovascular: Denies chest pain, palpitations, feeling faint, trouble breathing w/exertion, SOB upon lying down, SOB at night, peripheral edema, elevated blood pressure, decreased heart rate. Respiratory: Denies cough, difficulty breathing, shortness of breath, excessive sputum, coughing up blood, wheezing, chest pain. Breast: Denies discoloration, tenderness, breast changes, breast lump, nipple discharge. Gastrointestinal: Denies nausea, vomiting, diarrhea, constipation. Genitourinary: Denies urinary incontinence, pain with urination, burning with urination, urinary frequency, urinary hesitancy, urinary urgency, urinary urgency at night, incomplete emptying, blood in urine, pelvic pain. Musculoskeletal: Denies back pain, joint pain, leg pain, other pain-see comments, joint swelling, body aches, muscle aches, muscle cramps, muscle weakness, stiffness, recent injury. Skin: Denies rash, hives, redness, itching, dryness, nail changes, suspicious lesions, athlete's foot, rash on palms, rash on bottom of feet. Neurologic: Denies muscle impairment, weakness, numbness/tingling, seizures, slurred speech, feeling faint, tremors, vertigo, paralysis on one side, paralysis on both sides. Psychiatric: Denies depression, anxiety, memory loss, mental disturbance, suicidal ideation, homicidal ideation, hallucinations, paranoia, feeling stressed, hearing voices. Endocrine: Denies cold intolerance, heat intolerance, excessive thirst, excessive hunger, excessive urination, weight loss, weight gain. Physical ExamGeneral Appearance: well nourished, well hydrated, no acute distressEyes, External: conjunctivae and lids normal, EOMIRespiratory, Auscultation: clear to auscultation bilaterally; no rales, rhonchi, or wheezesRespiratory, Effort: no intercostal retractions or use of accessory musclesCardiovascular, Auscultation: S1, S2 audible; no murmur, rub, or gallop; RRRPeripheral Circulation: no clubbing, cyanosis, edema, or varicositiesAbdomen: soft, non-tender, no masses, bowel sounds normalGait & Station: normalSkin, Inspection: no rashes, lesions, or ulcerationsOrientation: oriented to time, place, and personMood & Affect: no depression, anxiety, or agitationJudgment & Insight: intactCare Management Plan Transitions of CareInboundRate Your HealthIn general, would you say your health is? FairAssessment & Plan Problems:Added: vitamin D deficiency (ICD-268.9) (ICD10- E55.9) Assessment: Instructions: vitamin D supplement sent to pharmacy for you today.Encounter for general adult medical examination with abnormal findings (ICD-V70.0) (CJI56-W40.01) Assessment: Instructions: Physical exam done for you today. Please continue healthy diet and physical activities. Please try to maintain adequate intake of water daily.Prediabetes (DYJ54-I15.03) Assessment: Instructions: Please continue healthy diet and physical activities. Please try to limit sugars and carbohydrates in your dietPlease try to maintain adequate intake of water daily.Assessed:Anxiety depression (ICD-300.09) (ICD10- F41.8) Assessment: Pt schedu;led for MH visit todayHealth Screening (ICD- V70.0) (YIC59-W88.9) Assessment: Instructions: Lab results reviewed with you today.Patient Instructions/Care Plan: vitamin D deficiency: vitamin D supplement sent to pharmacy for you today.Encounter for general adult medical examination with abnormal findings: Physical exam done for you today. Please continue healthy diet and physical activities. Please try to maintain adequate intake of water daily.Prediabetes: Please continue healthy diet and physical activities. Please try to limit sugars and carbohydrates in your dietPlease try to maintain adequate intake of water daily.Health Screening: Lab results reviewed with you today. Plan developed in collaboration with patient and/or familyMedications:VITAMIN D3 85007 UNIT ORAL TABLETMedication Changes:New Prescription:VITAMIN D3 30600 UNIT ORAL TABLET-1 po q wk for 12 wks, then change to 1000 unit tablet daily thereafter Qty: 12[Tablet] Refills: 0 Method: ElectronicAllergies:PENICILLIN (Critical)AMOXICILLIN (Critical)* SEASONAL (Mild)Orders:COMP METABOLIC PANEL [CPT-99905] CBC W/DIFF [CPT-15798] HgBA1c [CPT-27854] Vitamin D 250H Unspecified [CPT-78995] LIPID PANEL [CPT-83581] Adult - Ofc Vst, EST, Level IV [CPT-48587] Follow-Up Return to clinic: 3 months for follow up Clinical Visit Summary Completed Name Value Range Interpretation Code Description Data Magalis rce(s) Supporting Document(s) ID Date Data Source [id number] 03/25/2020 10:37:[address] [facility] In-House Blood TestsDate/Time Colle cted: March 25, 2020 10:37 AMTest Result Reference Range Normal ValueComments: blood draw done in offcie done in the right ac tolerated well Dillan Wyatt MA, March 25, 2020 10:37 AMAssessment & Plan Orders:[id number] Vst-Est Level I [CPT-49320] 66137 - Venipuncture [CPT-52263] Name Value Range Interpretation Code Description Data Magalis rce(s) Supporting Document(s) ID Date Data Source [id number] 03/25/2020 10:35:[address] [facility] Name Value Range Interpretation Code Description Data Magalis rce(s) Supporting Document(s) HCT 36.8 % 36.0-47.0 N [facility] HGB 11.1 g/dL 12.0-15.[address] [facility] MCH 30.2 G/DL pg 32.0[facility].[address] [facility] M[facility]C 21.9 PG % 27.0-33.[address] [facility] PLATELETS 222 10 10*3/mm3 150-[address] [facility] RBC 5.08 10 10*6/mm3 4.00-5.[address] [facility] RDW 15.8 % 11.5-14.[address] [facility] WBC TOTAL 6.7 4.0-10.[address] [facility] ID Date Data Source [id number] 03/25/2020 10:35:[address] [facility] Name Value Range Interpretation Code Description Data Magalis rce(s) Supporting Document(s) HGBA1C 6.1 % N [facility] ID Date Data Source [id number] 03/25/2020 10:35:[address] [facility] Name Value Range Interpretation Code Description Data Magalis rce(s) Supporting Document(s) T4, FREE 1.04 ng/dL 0.78-1.33 N [facility] TSH 3.300 microintl units/mL 0.463-3.[address] [facility] VIT D25 TOT 17.0 ng/mL 30.0-100.0 L [facility] BG FASTING 99 mg/dL 70-100 N [facility] ID Date Data Source [id number] 02/02/2020 10:33:[address] [facility] Measurements & CalculationsHeight: 59 inches (4 ft. 11 in.) 149.86 cm 2 %ileWeight: 149 pounds 67.73 kg 80 %ileBody Mass Index (BMI): 30.20 94 %tileBMI Interpretation: ObeseBody Surface Area (BSA): 1.63Weight Management Education Done (Nutrition/Physical Activity)Vital SignsTemperature: 98.4FPulse Rate: 97 beats/minuteRespiratory Rate: 14 respirations/minuteBlood Pressure: 104/72 O2 Saturation: 98% Vital Signs performed by: Ladi Long LPN, February 02, 2020 10:34 AMVital Signs performed by: Ladi Long LPN, February 02, 2020 10:34 AMInitial Intake Information from: patientRoom #: 13Smoking, Tobacco, Vaping or Smoke Exposure StatusSmoke Status: former smokerTobacco Use: NoDo you vape? NoMenstrual HistoryLast Menstrual Period (LMP): 02/01/2020Any possibility of ? NoHealthcare HistorySince your last office visit...Have you been admitted to the hospital? NoHave you been to an emergency room (ER) or urgent care clinic? NoHave you seen another healthcare provider? Yes - [facility]Have you seen a dentist? NoRate Your HealthIn general, would you say your health is? Very GoodPain AssessmentAre you currently having any pain which... You would like your provider to address? No Affects your activity level? NoDepression Screening - PHQ-2Over the last two weeks, have you... Had little interest or pleasure in doing things? Nearly every day Been feeling down, depressed, or hopeless? Nearly every day PHQ-2 Score: 6Anxiety Screening - JACOB-2Over the last two weeks, have you been... Feeling nervous, anxious, or on edge? Not at all Unable to stop or control worrying? Not at all JACOB-2 Score: 3Food InsecurityWithin the past year...Did you worry whether your food would run out before you got money to buy more? NoWas there a time when the food you bought didn't last and you didn't have money to get more? NoInfectious Disease / Travel ScreeningRecent travel for you or any close contacts? NoHave you had any close contact with anyone diagnosed with or under investigation for COVID-19 (coronavirus)? NoHave you had any of the following symptoms recently? Fever? NoRespiratory symptoms: cough, cold, congestion, shortness of breath, difficulty breathing? NoGeneralized Anxiety Disorder 7-Item Screening (JACOB-7)Answer Guide:0 = Not at all1 = Several days2 = Over half the days3 = Nearly every dayOver the last 2 weeks, how often have you been bothered by the following problems?Feeling nervous, anxious, or on edge: 1Not being able to stop or control worryinWorrying too much about different things: 2Trouble relaxinBeing so restless that it's hard to sit still: 0Becoming easily annoyed or irritable: 2Feeling afraid as if something awful might happen: 3Answer Guide:0 = Not difficult at all1 = Somewhat difficult2 = Very difficult3 = Extremely difficultHow difficult have these made it for you to do your work, take care of things at home, or get along with other people? 1GAD- 7 Screening Results JACOB-2 Score: 3GAD-7 Score: 11Functional Impairment: Somewhat difficultRecommendation: Moderate anxietyPHQ-9 1. Over the last 2 weeks, patient reports the following frequency of symptoms: a. Little interest or pleasure in doing things -Nearly every day b. Feeling down, depressed, or hopeless -Nearly every day c. Trouble falling asleep, staying asleep, or sleeping too much - Nearly every day d. Feeling tired or having little energy -Nearly every day e. Poor appetite or overeating -Nearly every day f. Feeling bad about yourself, feeling that you are a failure, or feeling that you have let yourself or your family down -Nearly every day g. Trouble concentrating on things such as reading the newspaper or watching television -Nearly every day h. Moving or speaking so slowly that other people could have noticed. Or being so fidgety or restless that you have been moving around a lot more than usual -Not at all i. Thinking that you would be better off or that you want to hurt yourself in some way -Not at all2. If you checked off any problems, how difficult have these problems made it for you to do your work, take care of things at home, or get along with other people? -Somewhat DifficultToday's PHQ-9 Results Score: 21 Severity: Severe Diagnosis Recommendation: Major Depression Functional Impairment: Somewhat DifficultToday's Follow-Up Action Depression follow-up done. Follow-Up Action: Referred to Behavioral Health [facility] Feed Attendant for initial evaluationPatient History Medical History:Bi-PolarMajor Depressive DisorderWeight issuesSurgical History:Family History:Social/Personal History: Chief Complaintfollow-up visit History of Present Illness (HPI)19 yo here for concerns of anixiety Pt states dx of bipolar. Pt states was diagnosed in 2016. Pt states havent had medications in about two years. Pt states mother of two children. Pt states trying to get established with community clinic but has no transportation or anyone to watch the children. Pt states would prefer to get establish in housePt states presently out of work. Pt states not sure what triggers her bipolar. Pt states family history of bipolar. Pt denies any suicidal or homicidal ideationsHPI performed by: Ana WALDENP, February 02, 2020 11:04 AMTransitions of Care InboundProblem ReviewProblem List was reviewed and/or updated during this visit.Medication Reconciliation & ReviewMedication List was reviewed and/or updated during this visit, including review of any ixzn-mls-iaxrrad medications, herbal therapies, and/or supplements. Patient has no known medications.Allergy ReviewAllergy List was reviewed and/or updated during this visit.Adult Preventive CareProvider Calculated and Reviewed all Clinical Protocols for patient today. Labs/Meds/Other Counseling-Nutrition and Physical Activity:BMI Interpretation: Obese (02/02/2020) Counseling: Done (02/02/2020) Physical Activity: Done (02/02/2020)Review of Systems General: Denies loss of appetite, chills, d izziness, fatigue, fever, continued fever, headache, feeling ill, sweats, night sweats, sleep disturbances, weight loss. Eyes: Denies blurring of vision, double vision, irritation, discharge, vision loss, eye pain, eye swelling, droopy eyelid, sensitivity to light, redness, itching. Ears/Nose/Throat: Denies earache, ear discharge, ringing in ears, decreased hearing, nasal congestion, nosebleeds, runny nose, sore throat, hoarseness, difficulty swallowing, dry mouth, tooth pain, bleeding gums, swollen glands. Cardiovascular: Denies chest pain, palpitations, feeling faint, trouble breathing w/exertion, SOB upon lying down, SOB at night, peripheral edema, elevated blood pressure, decreased heart rate. Respiratory: Denies cough, difficulty breathing, shortness of breath, excessive sputum, coughing up blood, wheezing, chest pain. Gastrointestinal: Denies nausea, vomiting, bleeding, burning, itching, irritation. Genitourinary: Denies urinary incontinence, pain with urination, burning with urination, urinary frequency, urinary hesitancy, urinary urgency, urinary urgency at night, incomplete emptying, blood in urine. Musculoskeletal: Denies back pain, joint pain, leg pain, joint swelling, body aches, muscle aches, muscle cramps, muscle weakness, stiffness, recent injury. Neurologic: Denies muscle impairment, weakness, numbness/tingling, seizures, slurred speech, feeling faint, tremors, vertigo, paralysis on one side, paralysis on both sides. Psychiatric: Complains of depression, anxiety, feeling stressed. Denies memory loss, mental disturbance, suicidal ideation, homicidal ideation, hallucinations, paranoia, hearing voices. Physical ExamGeneral Appearance: well nourished, well hydrated, no acute distressEyes, External: conjunctivae and lids normal, EOMIRespiratory, Auscultation: clear to auscultation bilaterally; no rales, rhonchi, or wheezesRespiratory, Effort: no intercostal retractions or use of accessory musclesCardiovascular, Auscultation: S1, S2 audible; no murmur, rub, or gallop; RRRPeripheral Circulation: no clubbing, cyanosis, edema, or varicositiesAbdomen: soft, non-tender, no masses, bowel sounds normalGait & Station: normalSkin, Inspection: no rashes, lesions, or ulcerationsOrientation: oriented to time, place, and personMood & Affect: no depression, anxiety, or agitationJudgment & Insight: intactCare Management Plan Transitions of CareInboundRate Your HealthIn general, would you say your health is? Very GoodAssessment & Plan Problems:Added: Anxiety depression (ICD-300.09) (VZC28-R01.8) Assessment: Instructions: We have made a referral for you today. We will contact you to set this up. Please continue to monitor report and avoid triggers causing increase anxiety and or depressionHealth Screening (ICD-V70.0) (EHF22-Q53.9) Assessment: Instructions: Fasting labs ordered for you today.Assessed:Bipolar disorder, unspecified (CDR22-B25.9) Assessment: Instructions: We have made a referral for you today. We will contact you to set this up.Assessment not Saved Health Screening ([id number]): Comment OnlyInstructions: Fasting labs ordered for you today.Patient Instructions/Care Plan: Anxiety depression: We have made a referral for you today. We will contact you to set this up. Please continue to monitor report and avoid triggers causing increase anxiety and or depressionHealth Screening: Fasting labs ordered for you today.Bipolar disorder- unspecified: We have made a referral for you today. We will contact you to set this up. Plan developed in collaboration with patient and/or familyAllergies:PENICILLIN (Critical)AMOXICILLIN (Critical)* SEASONAL (Mild)Orders:COMP METABOLIC PANEL [CPT-90069] CBC W/DIFF [CPT-40047] LIPID PANEL [CPT-03134] HgBA1c [CPT-05473] TSH [CPT-77938] T-4 free [CPT-09055] Vitamin D 250H Unspecified [CPT-82289] URINALYSIS [CPT-38437] Mental Health Consult [CPT- 53525] Telepsychiatry Consult [CPT-16816] Adult - Ofc Vst, EST, Level III [CPT- 02893] Follow-Up Return to clinic: 6-8 weeks for follow up. Additional Follow- Up: one week prior for blood work. Clinical Visit Summary Completed Name Value Range Interpretation Code Description Data Magalis rce(s) Supporting Document(s) Procedure Social History Code Duration Value Status Description Data Source(s ) Smoking 11/02/2020 12:00:00 AM EST Patient has n ever smoked (pipe, cigarette, cigar) completed Patient has never smoked (pipe, cigarett e, cigar) [facility] ([facility]) Vital Signs ID Date Data Source UNK Name Value Range Interpretation Code Description Data Source(s) Body temperature 36.1 Kiara 36.1 Kiara [facility] ( [facility]) Body temperature 97.0 [degF] 97.0 [degF] [facility] Heart rate 73 /min 73 /min [facility] Diastolic blood pressure 79 mm[Hg] 79 mm[Hg] [facility] ([facility]) Systolic blood pressure 124 mm[Hg] 124 mm[Hg] M EDENT ([facility]) Body mass index (BMI) [Ratio] 28.3 kg/m2 28.3 k g/m2 [facility] ([facility]) Body weight 140.00 [lb_av] 140.00 [lb_av] MEDEN T ([facility]) Body height 59 [in_i] 59 [in_i] [facility] 4'11" Wren body weight 100 [lb_av] 100 [lb_av] MEDEN T ([facility]) Body mass index (BMI) [Ratio] 30.3 kg/m2 30.3 k g/m2 [facility] ([facility]) Body weight 150.00 [lb_av] 150.00 [lb_av] MEDEN T ([facility]) Body height [Percentile] 3 % 3 % [facility] ([facility]) Body height 59 [in_i] 59 [in_i] [facility] ([facility]) 4'11" Respiratory rate 12 /min 12 /min [facility] ( [facility]) Diastolic blood pressure 66 mm[Hg] 66 mm[Hg] eCW1 ([facility]) Systolic blood pressure 120 mm[Hg] 120 mm[Hg] e CW1 ([facility]) Body mass index (BMI) [Ratio] 34.861 kg/m2 34.8 61 kg/m2 eCW1 ([facility]) Body height 59 [in_us] 59 [in_us] eCW1 ([facility]) Body weight Measured 172.6 [lb_av] 172.6 [lb_av ] eCW1 ([facility]) Diastolic blood pressure 68 mm[Hg] 68 mm[Hg] eCW1 ([facility]) Systolic blood pressure 118 mm[Hg] 118 mm[Hg] e CW1 ([facility]) Body mass index (BMI) [Ratio] 34.053 kg/m2 34.0 53 kg/m2 eCW1 ([facility]) Body height 59 [in_us] 59 [in_us] eCW1 ([facility]) Body weight Measured 168.6 [lb_av] 168.6 [lb_av ] eCW1 ([facility]) Diastolic blood pressure 78 mm[Hg] 78 mm[Hg] eCW1 ([facility]) Systolic blood pressure 136 mm[Hg] 136 mm[Hg] e CW1 ([facility]) Body mass index (BMI) [Ratio] 33.932 kg/m2 33.9 32 kg/m2 eCW1 ([facility]) Body height 59 [in_us] 59 [in_us] eCW1 ([facility]) Body weight Measured 168 [lb_av] 168 [lb_av] eC W1 ([facility]) Diastolic blood pressure 68 mm[Hg] 68 mm[Hg] eCW1 ([facility]) Systolic blood pressure 122 mm[Hg] 122 mm[Hg] e CW1 ([facility]) Body mass index (BMI) [Ratio] 33.326 kg/m2 33.3 26 kg/m2 eCW1 ([facility]) Body height 59 [in_us] 59 [in_us] eCW1 ([facility]) Body weight Measured 165 [lb_av] 165 [lb_av] eC W1 ([facility])
--- OUTSIDE RECORDS SUMMARY | 2020-12-03 23:14 | CCD | Continuity of Care Document ---
Author Author Jaleesa ONTIVEROS MD Organization Unknown Address [address], [address] [place] [address] Phone [phone] Care Team Providers Care [employer] Comp[employer] Inspector Name Role Phone Marva Oswald Md AUTM [phone] No PCP [facility] Unavailable Problems Description No [...] H/L Range Note Coronavirus 2019 Nasopharygeal 10/20/2020 [facility] [address] [place] [address] [phone] Coronavirus 2019 Nasopharygeal This nucleic aci <SEE N OTE> 1 BMP-Female 10/19/2020 [facility] [address] [place] [address] [phone] Glucose 97 mg/dL 74-106 2 BUN 12 mg/dL 6-20 Creatinine 0.8 mg/dL 0.5-1.3 Sodium 139 mmol/L 136-145 Potassium 3.9 mmol/L 3.5-5.3 Chloride 103 mmol/L 98-107 Co2 26 mEq/L 20-31 Anion Gap 10 mmol/L 7-16 eGFR-female 91 mL/m/1.73m - eGFR-Aa female 111 mL/m/1.73m - 3 Calcium 9.6 mg/dL 8.9-10.5 Cbcadp 10/19/2020 [facility] [address] [place] [address] [phone] WBC. 8.22 x10E3/uL 4.2-12.0 RBC 5.01 x10E6/uL 3.9-5.4 4 HGB 11.6 g/dL Low 12.0-16.0 HCT 38.2 % 36-47 MCV 76.3 fL Low 80-98 MCH 23.2 pg Low 27-33 MCHC 30.4 g/dL Low 32-36 RDW 15.3 % High 11.2-15.2 PLT 248 x10E3/uL 135-420 MPV 9.9 fL 7.0-12.3 % Michael 64.7 % 41.0-80.0 %Lym 27.3 % 10.0-45.2 %Dickenson 5.6 % 2.0-13.0 %Eos 1.7 % 0.0-8.0 %Baso 0.6 % 0.0-3.0 Neut 5.3 x10E3/uL 2.0-8.1 Lymp 2.3 x10E3/uL 0.6-3.1 Dickenson 0.5 x10E3/uL 0.0-1.0 Eos 0.1 x10E3/uL 0.0-0.6 Baso 0.1 x10E3/uL 0.0-0.2 Laboratory test finding 10/19/2020 [facility] [address] [place] [address] [phone] HCG Quant <2 miu/ml - 5 PT-Inr 10/19/2020 [facility] [address] [place] [address] [phone] PT 15.0 Sec High 10.6-13.0 Inr 1.3 - 6 Laboratory test finding 10/19/2020 [facility] [address] [place] [address] [phone] PTT 29.7 Sec 24.7-34.7 7 Venipuncture DONE - 1 This nucleic acid amplificat ion test was developed and its performance characteristics determined by [employer]. Nucleic acid amplification tests include PCR and [...] detected) result in this assay. Performed at: [facility] [address] [facility], [place] [address] [id number] Utility Bagger: Zayda Kim PhD, Phone: [phone] Not Detected 2 [employer] [...] Provider Dx Diagnosis Office Visit 10/19/2020 8:20a 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 Ontiveros to be scheduled in next couple weeks. Functional Status Description No Information Available Mental Status Description No Information Available Referrals Refer to Reason for Referral Status Appt Date Issa Ontiveros MD Created [facility] Neuroscience Division [address], [address] [place] [address] [phone]
[2020-12-03] MEDS ORDERED: ACETAMINOPHEN TAB 650MG DOSE (2X325MG) PO ONE (23:45)
[2020-12-03 23:48] LABS: BASO # 0.1 10^3/uL (0.0-0.2); BASO % 0.5 % (0.0-1.0); EOS # 0.1 10^3/uL (0.0-0.5); EOS % 0.8 % (0.0-3.0); HEMATOCRIT 38.9 % (36.0-47.0); HEMOGLOBIN 11.8 g/dl (12.0-15.5); LYMPH # 2.9 10^3/uL (1.5-5.0); LYMPH % 25.6 % (24.0-44.0); MEAN CORPUSCULAR HEMOGLOBIN 22.9 pg (27.0-33.0); MEAN CORPUSCULAR HGB CONC 30.3 g/dl (32.0-36.5); MEAN CORPUSCULAR VOLUME 75.4 fl (80.0-96.0); MONO # 0.6 10^3/uL (0.0-0.8); MONO % 5.2 % (0.0-5.0); NEUTROPHILS # 7.7 10^3/uL (1.5-8.5); NEUTROPHILS % 67.5 % (36.0-66.0); PLATELET COUNT, AUTOMATED 225 10^3/uL (150-450); RED BLOOD COUNT 5.16 10^6/uL (4.00-5.40); WHITE BLOOD COUNT 11.5 10^3/uL (4.0-10.0)
[2020-12-03] MEDS ORDERED: ISOVUE-370 76% 100ML VIAL As Ordered ONE (23:58)
--- OUTSIDE RECORDS SUMMARY | 2020-12-03 23:59 | CCD ---
Author Author [facility] Address Unknown Phone Unavailable Care Team Providers Care Quality Assurance Test Program Manager Name Role Phone Donell Ontiveros MD Unavailable Unavailable Padalino, Donell [...] Padalino, Donell Parsons MD Unavailable Unavailable Padalino, oDnell Parsons MD Unavailable Unavailable Padalino, Donell Parsons [...] Donell Parsons MD Unavailable Unavailable Davison, Chelsey AUTOMATIC FABRIC CUTTER AUTOMATIC FABRIC CUTTER Unavailable Unavailable Davison, F Chelsey AUTOMATIC FABRIC CUTTER-BC Unavailable Unavailable Davison, F Chelsey AUTOMATIC FABRIC CUTTER-BC Unavailable Unavailable Davison, F Chelsey AUTOMATIC FABRIC CUTTER-BC Unavailable Unavailable Davison, F Chelsey AUTOMATIC FABRIC CUTTER-BC Unavailable Unavailable Davison, F Chelsey AUTOMATIC FABRIC CUTTER-BC Unavailable Unavailable Davison, F Chelsey AUTOMATIC FABRIC CUTTER-BC Unavailable Unavailable Davison, F Chelsey AUTOMATIC FABRIC CUTTER-BC Unavailable Unavailable Davison, F Chelsey AUTOMATIC FABRIC CUTTER-BC Unavailable Unavailable Davison, F Chelsey AUTOMATIC FABRIC CUTTER-BC Unavailable Unavailable Davison, F Chelsey AUTOMATIC FABRIC CUTTER-BC Unavailable Unavailable Davison, F Chelsey AUTOMATIC FABRIC CUTTER-BC Unavailable Unavailable Davison, F Chelsey AUTOMATIC FABRIC CUTTER-BC Unavailable Unavailable Davison, F Chelsey AUTOMATIC FABRIC CUTTER-BC Unavailable Unavailable Davison, F Chelsey AUTOMATIC FABRIC CUTTER-BC Unavailable Unavailable Davison, F Chelsey AUTOMATIC FABRIC CUTTER-BC Unavailable Unavailable Davison, F Chelsey AUTOMATIC FABRIC CUTTER-BC Unavailable Unavailable Davison, F Chlesey AUTOMATIC FABRIC CUTTER-BC Unavailable Unavailable Davison, F Chelsey AUTOMATIC FABRIC CUTTER-BC Unavailable Unavailable Davison, F Chelsey AUTOMATIC FABRIC CUTTER-BC Unavailable Unavailable Davison, F Chelsey AUTOMATIC FABRIC CUTTER-BC Unavailable Unavailable Davison, F Chelsey AUTOMATIC FABRIC CUTTER-BC Unavailable Unavailable Davison, F Chelsey AUTOMATIC FABRIC CUTTER-BC Unavailable Unavailable MOIZ GRIJALVA AUTOMATIC FABRIC CUTTER-C, MSN Unavailable Unavailab MOIZ Juarez AUTOMATIC FABRIC CUTTER-C, MSN Unavailable Unavailab MOIZ Juarez AUTOMATIC FABRIC CUTTER-C, MSN Unavailable Unavailab le GRIJALVA, MOIZ MUKESH AUTOMATIC FABRIC CUTTER-C, MSN Unavailable Unavailab le GRIJALVA, MOIZ MUKESH AUTOMATIC FABRIC CUTTER-C, MSN Unavailable Unavailab le GRIJALVA, MOIZ MUKESH AUTOMATIC FABRIC CUTTER-C, MSN Unavailable Unavailab le GRIJALVA, MOIZ MUKESH AUTOMATIC FABRIC CUTTER-C, MSN Unavailable Unavailab le GRIJALVA, MOIZ MUKESH AUTOMATIC FABRIC CUTTER-C, MSN Unavailable Unavailab le GRIJALVA, MOIZ MUKESH AUTOMATIC FABRIC CUTTER-C, MSN Unavailable Unavailab le GRIJALVA, MOIZ MUKESH AUTOMATIC FABRIC CUTTER-C, MSN Unavailable Unavailab le GRIJALVA, MOIZ MUKESH AUTOMATIC FABRIC CUTTER-C, MSN Unavailable Unavailab le GRIJALVA, MOIZ MUKESH AUTOMATIC FABRIC CUTTER-C, MSN Unavailable Unavailab le GRIJALVA, MOIZ MUKESH AUTOMATIC FABRIC CUTTER-C, MSN Unavailable Unavailab le GRIJALVA, MOIZ MUKESH AUTOMATIC FABRIC CUTTER-C, MSN Unavailable Unavailab le GRIJALVA, MOIZ MUKESH AUTOMATIC FABRIC CUTTER-C, MSN Unavailable Unavailab le GRIJALVA, MOIZ MUKESH AUTOMATIC FABRIC CUTTER-C, MSN Unavailable Unavailab le GRIJALVA, MOIZ MUKESH AUTOMATIC FABRIC CUTTER-C, MSN Unavailable Unavailab le GRIJALVA, MOIZ MUKESH AUTOMATIC FABRIC CUTTER-C, MSN Unavailable Unavailab le GRIJALVA, MOIZ MUKEHS AUTOMATIC FABRIC CUTTER-C, MSN Unavailable Unavailab le GRIJALVA, MOIZ MUKESH AUTOMATIC FABRIC CUTTER-C, MSN Unavailable Unavailab le GRIJALVA, MOIZ MUKESH AUTOMATIC FABRIC CUTTER-C, MSN Unavailable Unavailab le GRIJALVA, MOIZ MUKESH AUTOMATIC FABRIC CUTTER-C, MSN Unavailable Unavailab le GRIJALVA, MOIZ MUKESH AUTOMATIC FABRIC CUTTER-C, MSN Unavailable Unavailab le GRIJALVA, MOIZ MUKESH AUTOMATIC FABRIC CUTTER-C, MSN Unavailable Unavailab le GRIJALVA, MOIZ MUKESH AUTOMATIC FABRIC CUTTER-C, MSN Unavailable Unavailab le GRIJALVA, MOIZ MUKESH AUTOMATIC FABRIC CUTTER-C, MSN Unavailable Unavailab le GRIJALVA, MOIZ MUKESH AUTOMATIC FABRIC CUTTER-C, MSN Unavailable Unavailab le GRIJALVA, MOIZ MUKESH AUTOMATIC FABRIC CUTTER-C, MSN Unavailable Unavailab le GRIJALVA, MOIZ MUKESH AUTOMATIC FABRIC CUTTER-C, MSN Unavailable Unavailab le GRIJALVA, MOIZ MUKESH AUTOMATIC FABRIC CUTTER-C, MSN Unavailable Unavailab le GRIJALVA, MOIZ MUKESH AUTOMATIC FABRIC CUTTER-C, MSN Unavailable Unavailab le GRIJALVA, MOIZ MUKESH AUTOMATIC FABRIC CUTTER-C, MSN Unavailable Unavailab le GRIJALVA, MOIZ MUKESH AUTOMATIC FABRIC CUTTER-C, MSN Unavailable Unavailab le GRIJALVA, MOIZ MUKESH AUTOMATIC FABRIC CUTTER-C, MSN Unavailable Unavailab le GRIJALVA, MOIZ MUKESH AUTOMATIC FABRIC CUTTER-C, MSN Unavailable Unavailab le GRIJALVA, MOIZ MUKESH AUTOMATIC FABRIC CUTTER-C, MSN Unavailable Unavailab le GRIJALVA, MOIZ MUKESH AUTOMATIC FABRIC CUTTER-C, MSN Unavailable Unavailab le GRIJALVA, MOIZ MUKESH AUTOMATIC FABRIC CUTTER-C, MSN Unavailable Unavailab le GRIJALVA, MOIZ MUKESH AUTOMATIC FABRIC CUTTER-C, MSN Unavailable Unavailab le GRIJALVA, MOIZ MUKESH AUTOMATIC FABRIC CUTTER-C, MSN Unavailable Unavailab le GRIJALVA, MOIZ MUKESH AUTOMATIC FABRIC CUTTER-C, MSN Unavailable Unavailab le GRIJALVA, MOIZ MUKESH AUTOMATIC FABRIC CUTTER-C, MSN Unavailable Unavailab le GRIJALVA, MOIZ MUKESH AUTOMATIC FABRIC CUTTER-C, MSN Unavailable Unavailab le Padalino, Donell Parsons [...] Matt Oswald MD Unavailable Unavailable David, Ana AUTOMATIC FABRIC CUTTER AUTOMATIC FABRIC CUTTER Unavailable Unavailable David, A Ana AUTOMATIC FABRIC CUTTER Unavailable Unavailable David, A Ana AUTOMATIC FABRIC CUTTER Unavailable Unavailable David, A Ana AUTOMATIC FABRIC CUTTER Unavailable Unavailable David, A Ana AUTOMATIC FABRIC CUTTER Unavailable Unavailable David, A Ana AUTOMATIC FABRIC CUTTER Unavailable Unavailable David, A Ana AUTOMATIC FABRIC CUTTER Unavailable Unavailable David, A Ana AUTOMATIC FABRIC CUTTER Unavailable Unavailable David, A Ana AUTOMATIC FABRIC CUTTER Unavailable Unavailable David, A Ana AUTOMATIC FABRIC CUTTER Unavailable Unavailable David, A Ana AUTOMATIC FABRIC CUTTER Unavailable Unavailable David, A Ana AUTOMATIC FABRIC CUTTER Unavailable Unavailable David, A Ana AUTOMATIC FABRIC CUTTER Unavailable Unavailable David, A Ana AUTOMATIC FABRIC CUTTER Unavailable Unavailable David, A Ana AUTOMATIC FABRIC CUTTER Unavailable Unavailable David, A Ana AUTOMATIC FABRIC CUTTER Unavailable Unavailable David, A Ana AUTOMATIC FABRIC CUTTER Unavailable Unavailable David, A Ana AUTOMATIC FABRIC CUTTER Unavailable Unavailable David, A Ana AUTOMATIC FABRIC CUTTER Unavailable Unavailable David, A Ana AUTOMATIC FABRIC CUTTER Unavailable Unavailable David, A Ana AUTOMATIC FABRIC CUTTER Unavailable Unavailable David, A Ana AUTOMATIC FABRIC CUTTER Unavailable Unavailable David, A Ana AUTOMATIC FABRIC CUTTER Unavailable Unavailable David, A Ana AUTOMATIC FABRIC CUTTER Unavailable Unavailable David, A Ana AUTOMATIC FABRIC CUTTER Unavailable Unavailable David, A Ana AUTOMATIC FABRIC CUTTER Unavailable Unavailable David, A Ana AUTOMATIC FABRIC CUTTER Unavailable Unavailable David, A Ana AUTOMATIC FABRIC CUTTER Unavailable Unavailable David, A Ana AUTOMATIC FABRIC CUTTER Unavailable Unavailable MEAGHAN, 0000{ Unavailable Unavailable Re-disclosure [...] is protected by Article 27-F of the [facility] Public Health law. If you continue you may have access to information: Regarding HIV / AIDS; Provided by facilities licensed or operated by the [facility] Office of Mental Health; or Provided by the [facility] Office for People With Developmental Disabilities. If such information is present, then the following [facility] mandated warning applies: This information has been [...] law may result in a fine or intermediate sentence or both. A general authorization for the release of medical or other information is NOT sufficient authorization for further disc losure. Allergies and Adverse Reactions Type Description Substance Reaction Status Data Source(s ) Amoxicillin Amoxicillin Amoxicillin 80 MG/ML Oral Suspension Unknown Active eCW1 ([facility]) Miscellaneous allergy SEASONAL SEASONAL [facility] Drug allergy Drug allergy NKDA MEDENT (No [facility]) Family History Family Member Name Family Member Gender Family Member Status Date o f Status Description Data Source(s) Unknown Unknown Problem MEDENT ([facility] ) Encounters Encounter Providers Location Date Indications Data Source(s ) Outpatient Attender: Issa Ontiveros MD [facility]MP [facility] [place] 11/02/2020 10:40:00 AM EST [facility]ENT ([facility]) Outpatient Attender: Issa Ontiveros MDAdmitter: Issa read MD 10/25/2020 05:54:00 AM EST - 10/25/2020 09:45:00 AM EST ARTERIOVENOUS MALFORMATION OF CEREBRAL VESSELS [facility] ARTERIOVENOUS MALFORMATION OF CEREBRAL V ESSELS Patient discharged. Outpatient Attender: 0000{ [place] 10/25/2020 05:54:00 AM E [facility] Outpatient Attender: Issa Ontiveros MD [facility] at [place] 10/19/2020 07:20:00 AM EST MEDENT ([facility]) Outpatient Attender: MINDI OBREGON 09/05/2020 02:34:03 P M EST [facility] Outpatient Attender: Ana OBREGON 09/05/2020 02:3 4:01 PM EST [facility] Outpatient Attender: MINDI OBREGON 09/05/2020 02:34:00 P M EST [facility] Outpatient Attender: Marva Oswald MD Main office - [facility] 09/02/2020 09:00:00 AM EDT MEDENT ([facility] ) Outpatient Attender: nAa OBREGON 08/14/2020 06:0 7:03 PM EDT [facility] Outpatient Attender: MINDI OBREGON 08/14/2020 06:07:01 P M EDT [facility] Outpatient Attender: MINDI OBREGON 08/09/2020 10:35:00 A M EDT [facility] Outpatient Attender: MINDI OBREGON 08/08/2020 06:32:26 A M EDT [facility] Outpatient Attender: Ana OBREGON 08/08/2020 06:3 2:17 AM EDT [facility] Outpatient Attender: MINDI OBREGON 08/05/2020 01:56:01 P M EDT [facility] Outpatient Attender: MINDI OBREGON 08/02/2020 01:12:02 P M EDT [facility] Outpatient Attender: MINDI OBREGON FP 07/27/2020 12:00:00 P M EDT [facility] Outpatient Attender: Ana David WALDENP FP 07/24/2020 02:3 2:02 PM EDT [facility] Outpatient Attender: MINDI David MINDI FP 07/24/2020 02:32:01 P M EDT [facility] Outpatient Attender: Ana Hernandez AUTOMATIC FABRIC CUTTER FP 07/24/2020 02:3 1:03 PM EDT [facility] Outpatient Attender: MINDI WALDENP FP 07/24/2020 02:31:02 P M EDT [facility] Outpatient Attender: MINDI OBREGON FP 06/22/2020 12:56:00 P M EDT [facility] Outpatient Attender: Chelsey GIANGBC FP 05/02/2020 11: 28:43 AM EDT [facility] [address] [place] [address] 04/28/2020 12:00:00 AM EDT eC ([facility]) Outpatient Attender: Chelsey BOJORQUEZ FP 04/10/2020 02: 00:04 PM EDT [facility] Outpatient Attender: MINDI OBREGON FP 04/01/2020 11:29:01 AM EDT [facility] Outpatient Attender: MINDI OBREGON FP 03/31/2020 02:48:03 PM EDT [facility] Outpatient Attender: Chelsey GIANGBC FP 03/31/2020 02: 48:03 PM EDT [facility] Outpatient Attender: MINDI OBREGON FP 03/31/2020 02:48:02 PM EDT [facility] Outpatient Attender: MINDI OBREGON FP 03/31/2020 01:59:00 PM EDT [facility] Outpatient Attender: MINDI OBREGON FP 03/29/2020 09:48:01 AM EDT [facility] Outpatient Attender: Chelsey GIANGBC FP 03/27/2020 07: 55:01 PM EDT [facility] Outpatient Attender: MINDI OBREGON FP 03/25/2020 01:18:01 PM EDT [facility] Outpatient Attender: MINDI OBREGON FP 03/25/2020 10:48:00 AM EDT [facility] Outpatient Attender: MINDI OBREGON FP 03/25/2020 10:47:01 AM EDT [facility] Outpatient Attender: MINDI OBREGON FP 03/25/2020 10:46:00 AM EDT [facility] Outpatient Attender: MINDI OBREGON FP 03/25/2020 10:20:01 AM EDT [facility] Outpatient Attender: MINDI OBREGON FP 03/25/2020 10:11:01 AM EDT [facility] Outpatient Attender: MINDI OBREGON FP 03/25/2020 10:09:01 AM EDT [facility] Outpatient Attender: MINID OBREGON FP 03/23/2020 03:45:02 PM EDT [facility] Outpatient Attender: Chelsey BOJORQUEZ FP 03/14/2020 02: 07:02 PM EDT [facility] Outpatient Attender: Chelsey BOJORQUEZ FP 03/08/2020 01: 52:02 PM EDT [facility] Outpatient Attender: Chelsey BOJORQUEZ FP 02/26/2020 03: 31:00 PM EDT [facility] Outpatient Attender: Chelsey BOJORQUEZ FP 02/17/2020 10: 05:00 AM EDT [facility] Outpatient Attender: Chelsey BOJORQUEZ FP 02/10/2020 02: 22:01 PM EDT [facility] Outpatient Attender: Chelsey BOJORQUEZ FP 02/06/2020 06: 02:00 PM EDT [facility] Outpatient Attender: Chelsey BOJORQUEZ FP 02/05/2020 10: 31:59 AM EDT [facility] [address] [place] [address] 02/04/2020 12:00:00 AM EDT eC1 ([facility]) Outpatient Attender: MINDI OBREGON FP 02/03/2020 12:00:27 AM EDT [facility] Outpatient Attender: MINDI MCFADDEN 02/02/2020 03:54:00 PM EDT [facility] Outpatient Attender: MINDI OBREGON FP 02/02/2020 11:28:01 AM EDT [facility] Outpatient Attender: MINDI Davison MINDI FP 02/02/2020 10:31:[address] [facility] [address] [place] [address] 01/28/2020 12:00:00 AM EDT eCW1 ([facility]) Outpatient Attender: MINDI OBREGON FP 01/15/2020 08:41:01 AM EDT [facility] Outpatient Attender: MINDI OBREGON FP 01/14/2020 03:29:00 PM EDT [facility] Outpatient Attender: Chelsey Saman OBREGON-BC FP 01/14/2020 03: 28:01 PM EDT [facility] Outpatient Attender: MINDI OBREGON FP 01/13/2020 03:57:01 PM EDT [facility] [address] [place] [address] 12/28/2019 12:00:00 AM EST eCW1 ([facility]) [facility] [address] [place] [address] 11/11/2019 12:00:00 AM EST eCW1 ([facility]) [facility] [address] [place] [address] 11/02/2019 12:00:00 AM EST eCW1 ([facility]) [facility] [address] [place] [address] 10/23/2019 12:00:00 AM EST eCW1 ([facility]) [facility] [address] [place] [address] 10/14/2019 12:00:00 AM EST eCW1 ([facility]) Outpatient Attender: MUKESH CULP, MSN [facility] 08/13/2017 09:31:00 AM EDT - 08/13/2017 09:31:00 AM EDT [facility] Immunizations Vaccine Date Status Description Data Source(s) New in 2011. IIV4 08/02/2020 01:35:00 PM EDT completed MEDENT ([facility] ) Depo-Provera 150mg/1mL (Medroxy-Progestrone Acetate) 020 02:02:00 PM EDT completed eCW1 ([facility]) Medications Medication Brand Name Start Date Product Form Dose Route Admi nistrative Instructions Pharmacy Instructions Status Indications Reaction Description Data Source(s) medroxyprogesterone acetate 150 MG/ML Injectable Suspe nsion [Depo-Provera] Depo-Provera 08/02/2020 12:00:00 AM EDT completed MEDENT ([facility] ) Cholecalciferol 44780 UNT Oral Capsule Vitamin D3 03/31/2020 12:0 0:00 AM EDT ORAL completed MEDENT ([facility] ) medroxyprogesterone acetate 150 MG/ML In jectable Suspension [Depo-Provera] Depo- Provera 150 MG/ML Depo-Provera 150 MG/ML 01/28/2020 12:00:00 AM EDT active 1 ml eCW1 ([facility]) Insurance Providers Payer name Policy type / Coverage type Policy ID Covered republican ID Covered republican's relationship to haider Policy Haider Plan Information [place] [id number] SP [id number] 200 [place] [facility] HEA [id number] S [id number] [place] [id number] SP [id number] DEPT [facility] [id number] CHILD [id number] Medicaid S [id number] S [id number] D Managed Care [place] ([employer]) O [id number] S [id number] Medicaid Dental O [id number] S [id number] Managed Care [place] P [id number] S [id number] MEDICAID [id number] SP [id number] Medicaid S [id number] S [id number] [place] [id number] S [id number] Self Pay P UNAVAILABLE S UNAVAILA BLE [place] [id number] SP [id number] 200 [facility] [id number] [place] [id number] [place] [facility] MEDICAID [id number] S [id number] ANSI-Medicaid [id number] ANSI-Commercial [id number] ANSI-Commercial [id number] ANSI-Commercial [id number] [place] [facility] MEDICAID [id number] S [id number] DEPT PROGRAM [id number] S [id number] MEDICAID [id number] S [id number] [facility] MEDICAID [id number] S [id number] Medicaid [facility] B [id number] Self [id number] [place] Medicaid [id number] Self [id number] Commercial [id number] Self [id number] DEPT PROGRAM [id number] ANSI-Commercial [id number] ANSI-Commercial [id number] ANSI-Medicaid [id number] ANSI-Commercial [id number] Medicaid [facility] B [id number] Self [id number] [facility] Medicaid [id number] Self [id number] [facility] Commercial [id number] Self [id number] ANSI-Commercial [id number] ANSI-Commercial [id number] ANSI-Medicaid [id number] ANSI-Commercial [id number] ANSI-Commercial [id number] ANSI-Commercial [id number] ANSI-Medicaid [id number] ANSI-Commercial [id number] ANSI-Commercial [id number] ANSI-Commercial [id number] ANSI-Medicaid [id number] ANSI-Commercial [id number] Medicaid [facility] Part B [id number] Self [id number] [place] [facility] [place] Medicaid [id number] Self [id number] Commercial [id number] Self [id number] [facility] MEDICAID [id number] S [id number] ANSI-Commercial [id number] ANSI-Medicaid [id number] ANSI-Commercial [id number] ANSI-Commercial [id number] Medicaid [facility] Part B [id number] Self [id number] [place] Care [place] Medicaid [id number] Self [id number] Commercial [id number] Self [id number] O [id number] S [id number] ANSI-Commercial [id number] ANSI-Commercial [id number] ANSI-Commercial [id number] ANSI-Medicaid [id number] ANSI-Commercial [id number] ANSI-Commercial [id number] ANSI-Medicaid [id number] ANSI-Commercial [id number] ANSI-Commercial [id number] ANSI-Commercial [id number] ANSI-Commercial [id number] ANSI-Medicaid [id number] MEDICAID M [id number] S [id number] SELF PAY ONLY [id number] SELF PAY [id number] S [id number] [place] [id number] [place] [id number] [place] [id number] SP [id number] [employer] [facility] MEDICAID MCD HMO [id number] S [id number] [facility] [place] [id number] CHILD [id number] [facility] [place] [id number] CHILD [id number] [facility] [place] [id number] CHILD [id number] SELF PAY SP UNAVAILABLE S UNAVAILA BLE Problems, Conditions, and Diagnoses Code Display Name Description Problem Type Effective Dates Data Source(s) N91.2 Amenorrhea, unspecified Absence of menstruation 09/05/2020 02:33:04 PM EST [facility] [id number] Migraine Migraine Problem 09/02/2020 12:00:00 AM ED T BLACK ([facility]) V65.8 Person consulting for explanation of exa mination or test findings Person consulting for explanation of examination or test findings 08/07/2020 11:00:27 PM EDT [facility] V04.81 Needs vaccination for influenza Needs vaccination for influenza 08/05/2020 01:54:02 PM EDT [facility] V04.81 Needs influenza immunization Needs influenza immunizat ion 08/02/2020 01:11:55 PM EDT [facility] V25.49 Encounter for surveillance of injectable contraceptive Encounter for surveillance of injectable contraceptive 08/02/2020 01:11:55 PM EDT [facility] [id number] Migraine with aura, not intractable, wit hout status migrainosus Migraine with aura, not intractable, without status migrainosus 08/02/2020 01:11:55 PM EDT [facility] V70.0 Encounter for general adult medical exam ination with abnormal findings Encounter for general adult medical examination with abnormal findings 03/31/2020 02:46:57 PM EDT [facility] 268.9 vitamin D deficiency vitamin D deficiency 03/31 02:46:57 PM EDT [facility] R73.03 Prediabetes Prediabetes 03/31/2020 02:46:57 PM EDT [facility] V70.0 Health Screening Health Screening 02/02/2020 11 :27:34 AM EDT [facility] 300.09 Anxiety depression Anxiety depression 0 11:27:34 AM EDT [facility] Z34.80 care Supervision of other normal Angi quiñones 10/12/2019 12:00:00 AM EST [email or web address] ([facility]) Surgeries/Procedures Procedure Description Date Indications Data Source(s) Angiography Internal Corotid Of The Ipsil Intrac Circulation 10/25/2020 12:00:00 AM EST [facility] ([facility]) Vertebral Artery Catheter Placement 10/25/2020 12:00:0 0 AM EST [facility] ([facility]) External Artery Carotid Cath PLMNT 10/25/2020 12:00:00 AM EST [facility] ([facility]) Moderate Sedation Services; Same Phys Intl 15 Mins; PT >= 5 Years 10/25/2020 12:00:00 AM EST [facility] ([facility]) Magnetic Resonance Angiogtaphy Head W/O Contrast Material(S) 09/13/2020 12:00:00 AM EST [facility] ([facility] ) Magnetic Resonance Angiogtaphy Head W/O Contrast Material(S) 09/13/2020 12:00:00 AM EST MED[facility] ([facility]) MRI BRAIN BRAIN STEM W/O CONTRAST MATERIAL 09/13/2020 12:00:00 AM EST MED[facility] ([facility]) MRI BRAIN BRAIN STEM W/O CONTRAST MATERIAL 09/13/2020 12:00:00 AM EST MED[facility] ([facility] ) THER/PROPH/DIAG INJ, SC/IM 02/04/2020 12:00:00 AM EDT eCW1 ([facility]) URINE TEST 02/04/2020 12:00:00 AM EDT eCW1 ([facility]) Injection, medroxyprogesterone acetate, 1 mg 0 12:00:00 AM EDT eCW1 ([facility]) OB Visit 11/11/2019 12:00:00 AM EST e CW1 ([facility]) TDAP 0.5mL (Boostrix) 10/14/2019 12:00:00 AM EST eCW1 ([facility]) IMMUNIZATION ADMIN 10/14/2019 12:00:00 AM EST eCW1 ([facility]) Results ID Date Data Source [id number] 10/25/2020 10:26:00 AM EST [facility] [...] for arteriotomy closure Surgeon: Issa Ontiveros MDAssistant: Kitty Cardona, Prior problems with sedation: NonePotential drug/sedative interactions: [...] even though they are speaking in her [place] language of Sammar[place]. This also seems to localize to the [...] comparing the signed consent with the name christalcelet to confirm the proper medical record number, [...] the modified Seldinger technique with a 5 Nepalese micropuncture kit. I then placed a 5 Nepalese sheath into the right femoral artery without any complications or difficulties. I then placed the 4 Nepalese angled glide catheter over a glide wire [...] fed by small branches of the right TICKET SELLER vessels, which have collateral flow to them [...] with normal anterograde filling to the right TICKET SELLER territory. I then selectively catheterized the right [...] also visualized. There are two major left TICKET SELLER feeding branches to this AVM which appear [...] a normal vertebrobasilar junction and the left TICKET SELLER territory is not well visualized as this is largely fed by the left TICKET SELLER seen on the left carotid angiogram run. There are small vessels of the distal right TICKET SELLER which are not amenable to safe endovascular [...] the femoral sheath and placed a 6 Nepalese AngioSeal device in the right femoral arteriotomy [...] fed by small branches of the right TICKET SELLER vessels, which have collateral flow to them [...] with normal anterograde filling to the right TICKET SELLER territory. 3. Selective right external carotid artery [...] also visualized. There are two major left TICKET SELLER feeding branches to this AVM which appear [...] a normal vertebrobasilar junction and the left TICKET SELLER territory is not well visualized as this is largely fed by the left TICKET SELLER seen on the left carotid angiogram run. There are small vessels of the distal right TICKET SELLER which are not amenable to safe endovascular [...] that is mostly fed by large left TICKET SELLER feeding branches which is supplied through the left carotid artery circulation via a large PComm primarily, but there are also some very small right TICKET SELLER distal feeding branches seen. There is also [...] this plan.End of diagnostic report for accession: [id number] Interpreted: Issa Ontiveros MDTranscribed: 10/25/2020 09:17 AMSigned: 10/25/2020 10:26 AM Issa Ontiveros MD [facility] ACC # [id number] BILL # [id number] NIRR Name Value Range Interpretation Code Description Data Magalis rce(s) Supporting Document(s) ID Date Data Source [id number] 10/20/2020 12:00:00 PM EST [facility] Name Value Range Interpretation Code Description Data Magalis rce(s) Supporting Document(s) SARS coronavirus 2 RNA [facility] This lab was ordered by [facility] and reported by [employer]. ID Date Data Source [id number] 10/20/2020 12:00:00 PM EST MEDENT ([facility]) Name Value Range Interpretation Code Description Data Magalis rce(s) Supporting Document(s) Laboratory test finding (navigational concept) Laboratory test result [facility] ([facility]) This nucleic acid amplification test was developed and its performance characteristics determined by [employer]. Nucleic acid amplification tests include PCR and [...] detected) result in this assay. Performed at: [facility] [place][note 2] [facility], [place] [address] [id number] Tester Vibrator Equipment: Zayda Kim PhD, Phone: [phone] Not Detected ID Date Data Source [id number] 10/19/2020 09:39:00 AM EST MEDENT ([facility]) Name Value Range Interpretation Code Description Data Magalis rce(s) Supporting Document(s) Venipuncture Laboratory test result MEDE NT ([facility]) aPTT in Platelet poor plasma by Coagulation assay 29.7 Sec 24.7-34. 7 MEDENT ([facility]) Note normal range update due to new reag ent lot 06/16/2020 ID Date Data Source [id number] 10/19/2020 09:39:00 AM EST MEDENT ([facility]) Name Value Range Interpretation Code Description Data Magalis rce(s) Supporting Document(s) Prothrombin time (PT) 15.0 Sec 10.6-13.0 Above high normal MEDENT ([facility]) INR in Platelet poor plasma by Coagulation assay 1.3 MED[facility] ([facility]) * INR Interpretation : . Recommended Theraputic Range: 2.0 - 3.0 . For treatment/prophylaxis . of venous thrombosis, . prevention of embolism. . . ID Date Data Source [id number] 10/19/2020 09:39:00 AM EST MEDENT ([facility]) Name Value Range Interpretation Code Description Data Magalis rce(s) Supporting Document(s) Choriogonadotropin.beta subunit [Moles/volume] in Seru m or Plasma Laboratory test result MED[facility] ([facility]) HCG Interpretation: Less Than 5.0 miu/ml - Either no HCG or too low to be clinically significant. 5.0 - 25.0 miu/ml - Equivocal result. Sh ould be repeated after 48 hours. A test result less than 25.0 should be interpreted in conjunction with other laboratory data available to the physician. Greater than 25.0 miu/ml - Clinically significant. ID Date Data Source [id number] 10/19/2020 09:39:00 AM EST [facility] ([facility]) Name Value Range Interpretation Code Description Data Magalis rce(s) Supporting Document(s) WBC. 8.22 x10E3/uL 4.2-12.0 MED[facility] ([facility]) Hemoglobin [Mass/volume] in Blood 11.6 g/dL 12.0-16.0 Below low nor mal MED[facility] ([facility]) Erythrocytes [#/volume] in Blood by Automated count 5.01 x10E6/uL 3.9 -5.4 MED[facility] ([facility]) 1+ Microcytosis 1+ Hypochromasia 1+ Anisocytosis MCH 23.2 pg 27-33 Below low normal [facility] ([facility]) Hematocrit [Volume Fraction] of Blood by Automated count 38.2 % 3 6-47 MED[facility] ([facility]) MCV 76.3 fL 80-98 Below low normal [facility] ([facility]) RDW 15.3 % 11.2-15.2 Above high normal [facility] ([facility]) MCHC 30.4 g/dL 32-36 Below low normal [facility] ([facility]) % Michael 64.7 % 41.0-80.0 [facility] ([facility]) MPV 9.9 fL 7.0-12.3 [facility] ([facility]) Platelets [#/volume] in Blood by Automated count 248 x10E3/uL 135-420 [facility] ([facility]) %Eos 1.7 % 0.0-8.0 [facility]) %Lym 27.3 % 10.0-45.2 [facility] ([facility]) %Millard 5.6 % 2.0-13.0 [facility]) Lymp 2.3 x10E3/uL 0.6-3.1 MED[facility] ([facility]) %Baso 0.6 % 0.0-3.0 [facility] ([facility]) Neut 5.3 x10E3/uL 2.0-8.1 [facility]) Millard 0.5 x10E3/uL 0.0-1.0 [facility]) Eos 0.1 x10E3/uL 0.0-0.6 [facility]) Baso 0.1 x10E3/uL 0.0-0.2 [facility]) ID Date Data Source [id number] 10/19/2020 09:39:00 AM EST [facility] ([facility]) Name Value Range Interpretation Code Description Data Magalis rce(s) Supporting Document(s) Urea nitrogen [Moles/volume] in Serum or Plasma 12 mg/dL 6-20 [facility] ([facility]) Glucose [Mass/volume] in Serum or Plasma 97 mg/dL 74-106 [facility] ([facility]) Citizen Of [place] Diabetes Association (ADA) Recommended Range is 65-99 mg/dL Potassium [Moles/volume] in Serum or Plasma 3.9 mmol/L 3.5-5.3 [facility] ([facility]) Creatinine [Mass/volume] in Serum or Plasma 0.8 mg/dL 0.5-1.3 [facility] ([facility]) Sodium [Moles/volume] in Serum or Plasma 139 mmol/L 136-145 MED[facility] ([facility]) Carbon dioxide, total [Moles/volume] in Serum or Plasma 26 meq/L 20 -31 [facility] ([facility]) Anion Gap 10 mmol/L 7-16 [facility] ([facility]) Chloride [Moles/volume] in Serum or Plasma 103 mmol/L 98-107 [facility] ([facility]) Calcium [Mass/volume] in Serum or Plasma 9.6 mg/dL 8.9-10.5 [facility] ([facility]) eGFR-Aa female 111 mL/m/1.73m [facility] ([facility]) <content>Normal Kidney Function or Mild Disease GFR >59 mL/min/1.73m2</content>
<content>Chronic Kidney Disease GFR 15-59 mL/min/1.73m2</content>
<content>Renal Failure GFR <15 mL/min/1.73m2</content>
<content></content> eGFR-female 91 mL/m/1.73m [facility] ([facility]) ID Date Data Source [id number] 09/05/2020 02:31:13 PM EST [facility] Name Value Range Interpretation Code Description Data Magalis rce(s) Supporting Document(s) PREG TST URN positive [facility] n[facility] ID Date Data Source [id number] 08/09/2020 11:02:22 AM EDT [facility] In-House Urine TestsDate/Time Colle cted: [...] Plan Prob lems:Added: Absence of menstruation (ICD-626.0) (MIX79-I99.2)Orders:[id number] Vst-Est Level I [CPT-68711] Name Value Range Interpretation Code Description Data Magalis rce(s) Supporting Document(s) ID Date Data Source [id number] 08/09/2020 11:02:22 AM EDT [facility] Name Value Range Interpretation Code Description Data Magalis rce(s) Supporting Document(s) PREG TST URN positive [facility] ID Date Data Source [id number] 08/02/2020 11:51:20 AM EDT [facility] Measurements & CalculationsHeight: 59 inches (4 [...] comments: boyfriend, familyMenstrual HistoryLast Menstrual Period (LMP): 08/26/2020LMP History: ApproximateAny possibility of ? YesHealthcare HistorySince [...] after she strained herself carrying a wheel [place]. Pt would like a referral to see [...] during this visit, including review of any kqez-zwf-uimwfam medications, herbal therapies, and/or supplements.Allergy ReviewAllergy List [...] Encounter for surveillance of injectable contraceptive (ICD-V25.49) (QWE32-R13 .42) Assessment: Pt states Tolerated Depo prevera well in the past. Would like to restart taking it. 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 Negative test is required prior.Migraine with aura, not intractable, without status migrainosus (WPE02-D30.109) Assessment: Instructions: We have made a referral for you today. We will contact you to set this up. .Needs influenza immunization (ICD-V04.81) (CEI37-H76.3) Assessment: Instructions: You have had your flu vaccine done today. Please report any adverse reactions.Needs vaccination for influenza (ICD-V04.81) (BCC16-S18) Assessment: Instructions: Flu vaccine given today.Person consulting for explanation of examination or test findings (ICD-V65.8) (NOR33-H57.2) Assessment: Instructions: We have reviewed your lab results with you today. Lab results unremarkable. Please continue healthy diet and physical activities.Assessed:Encounter for general adult medical examination with abnormal findings (ICD-V70.0) (GQK25-K86.01) Assessment: Instructions: We have reviewed your lab results with you todayAnxiety depression (ICD-300.09) (LJA29-C18.8) Assessment: Instructions: Please continue to monitor, report and avoid triggers causing increased anxiety and or depression.Encounter for general adult medical examination with abnormal findings (ICD-V70.0) (ICD10- Z00.01) Assessment: Instructions: Physical exam done today.Prediabetes (PAT81-I95.03) Assessment: Instructions: HGAc . this indicates normal blood sugar. Please continue healthy diet and physical activities. 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 Qty: 1[Syringe] Refills: 3 Method: ElectronicAllergies:PENICILLIN (Critical)AMOXICILLIN (Critical)* SEASONAL ( Mild)Orders:Neurology Consult [CPT-34694] URINE TEST [CPT-63773] Administration of Influenza Virus Vaccine [CPT-G0008] FluLaval Quadrivalent, preservative free [CPT-63115] 72190 - Immo Admin (over 19 yrs), 1st Vaccine [CPT-28157] URINE TEST [CPT-40212] COMP METABOLIC PANEL [CPT-44606] CBC W/DIFF [CPT-25243] Vitamin D 250H Unspecified [CPT-97143] Adult - Ofc Vst, EST, Level IV [CPT-44013] Follow-Up Return to clinic: 6 months for follow up. Clinical Visit Summary CompletedMedications:DEPO-PROVERA 150 MG/ML INTRAMUSCULAR SUSPENSION (MEDROXYPROGESTERONE ACETATE) inject IM every three months. #1[Syringe] x 3 Route:INTRAMUSCULAR Entered and Authorized by: Ana OBREGON Method used: Electronically to [facility]* (retail) [address] [place] [address] Note to Pharmacy: Route: INTRAMUSCULAR; Indications: ENCOUNTER FOR SURVEILLANCE OF INJECTABLE CONTRACEPTIVE RxID: [id number] Questionnaire1) Does the patient have a long-term [...] Syringe 0.5 MLMfr / Lot# / Exp.Date: WhoAPI / [id number] 1Amt. Given / Route / Site: 0.5 mL / IM / Left DeltoidNDC / CVX: [id number] / 150Administered Date: 08/02/2020 13:35VFC Eligibility: Not VFC EligibleVIS Date: 06/18/2019VIS Given / VIS Given On: Yes / 08/02/2020Comments: Administered by: Ladi Long LPN Name Value Range Interpretation Code Description Data Magalis rce(s) Supporting Document(s) ID Date Data Source [id number] 06/22/2020 11:30:56 AM EDT [facility] In-House Blood TestsDate/Time Colle cted: June 22, 2020 9:30 AMTest Result Reference Range Normal ValueComments: taken from right ac, tolerated well.Trixie Dalejordon, June 22, 2020 11:31 AMAssessment & Plan Orders:[id number]-Yfi Vst-Est Level I [CPT-47207] 39537 - Venipuncture [CPT- 40403] Name Value Range Interpretation Code Description Data Magalis rce(s) Supporting Document(s) ID Date Data Source [id number] 06/22/2020 09:30:00 AM EDT [facility] Name Value Range Interpretation Code Description Data Magalis rce(s) Supporting Document(s) HCT 37.7 % 36.0-47.0 N [facility] HGB 11.4 g/dL 12.0-15.5 L [facility] MCH 30.2 G/DL pg 32.0-36.5 L [facility] MCHC 22.5 PG % 27.0-33.0 L [facility] PLATELETS 233 10 10*3/mm3 150-450 N [facility] RBC 5.06 10 10*6/mm3 4.00-5.40 [facility] RDW 17.2 % 11.5-14.5 H [facility] WBC TOTAL 7.7 4.0-10.0 [facility] ID Date Data Source [id number] 06/22/2020 09:30:00 AM EDT [facility] Name Value Range Interpretation Code Description Data Magalis rce(s) Supporting Document(s) VIT D25 TOT 25.1 ng/mL 30.0-100.[address] [facility] BG FASTING 98 mg/dL 70-100 N [facility] ID Date Data Source [id number] 06/22/2020 09:30:00 AM EDT [facility] Name Value Range Interpretation Code Description Data Magalis rce(s) Supporting Document(s) HGBA1C 5.5 % N [facility] ID Date Data Source [id number] 03/31/2020 01:59:14 PM EDT [facility] Measurements & CalculationsHeight: 59 inches 149.86 [...] NoHave you seen a dentist? Yes [facility] by: [place] , March 31, [...] during this visit, including review of any xsxp-uhl-vvezxhv medications, herbal therapies, and/or supplements.Allergy ReviewAllergy List [...] adult medical examination with abnormal findings (ICD-V70.0) (UNP69-W48.01) Assessment: Instructions: Physical exam done for you today. Please continue healthy diet and physical activities. Please try to maintain adequate intake of water daily.Prediabetes (IJQ92-C99.03) Assessment: Instructions: Please continue healthy diet and physical activities. Please try to limit sugars and carbohydrates in your dietPlease try to maintain adequate intake of water daily.Assessed:Anxiety depression (ICD-300.09) (ICD10- F41.8) Assessment: Pt schedu;led for MH visit todayHealth Screening (ICD- V70.0) (XDD12-O60.9) Assessment: Instructions: Lab results reviewed with you [...] in collaboration with patient and/or familyMedications:VITAMIN D3 46838 UNIT ORAL TABLETMedication Changes:New Prescription:VITAMIN D3 54180 UNIT ORAL TABLET-1 po q wk for 12 wks, then change to 1000 unit tablet daily thereafter Qty: 12[Tablet] Refills: 0 Method: ElectronicAllergies:PENICILLIN (Critical)AMOXICILLIN (Critical)* SEASONAL (Mild)Orders:COMP METABOLIC PANEL [CPT-98916] CBC W/DIFF [CPT-78114] HgBA1c [CPT-22732] Vitamin D 250H Unspecified [CPT-31771] LIPID PANEL [CPT-81511] Adult - Ofc Vst, EST, Level IV [CPT-18318] Follow-Up Return to clinic: 3 months for follow up Clinical Visit Summary Completed Name Value Range Interpretation Code Description Data Magalis rce(s) Supporting Document(s) ID Date Data Source [id number] 03/25/2020 10:37:29 AM EDT [facility] In-House Blood TestsDate/Time Colle cted: March 25, 2020 10:37 AMTest Result Reference Range Normal ValueComments: blood draw done in offcie done in the right ac tolerated well Dillan Wyatt MA, March 25, 2020 10:37 AMAssessment & Plan Orders:[id number]-[id number] Vst-Est Level I [CPT-01107] 78118 - Venipuncture [CPT-75660] Name Value Range Interpretation Code Description Data Magalis rce(s) Supporting Document(s) ID Date Data Source [id number] 03/25/2020 10:35:00 AM EDT [facility] Name Value Range Interpretation Code Description Data Magalis rce(s) Supporting Document(s) HCT 36.8 % 36.0-47.0 N [facility] HGB 11.1 g/dL 12.0-15.5 L [facility] MCH 30.2 G/DL pg 32.0-36.5 L [facility] MCHC 21.9 PG % 27.0-33.0 L [facility] PLATELETS 222 10 10*3/mm3 150-450 N [facility] RBC 5.08 10 10*6/mm3 4.00-5.40 [facility] RDW 15.8 % 11.5-14.5 H [facility] WBC TOTAL 6.7 4.0-10.0 [facility] ID Date Data Source [id number] 03/25/2020 10:35:00 AM EDT [facility] Name Value Range Interpretation Code Description Data Magalis rce(s) Supporting Document(s) HGBA1C 6.1 % N [facility] ID Date Data Source [id number] 03/25/2020 10:35:00 AM EDT [facility] Name Value Range Interpretation Code Description Data Magalis rce(s) Supporting Document(s) T4, FREE 1.04 ng/dL 0.78-1.33 N [facility] TSH 3.300 microintl units/mL 0.463-3.98 N [facility] V[facility] D25 TOT 17.0 ng/mL 30.0-100.[address] [facility] BG FASTING 99 mg/dL 70-100 N [facility] ID Date Data Source [id number] 02/02/2020 10:33:45 AM EDT [facility] Measurements & CalculationsHeight: 59 inches (4 [...] done. Follow-Up Action: Referred to [facility] for initial evaluationPatient History Medical History:Bi-PolarMajor Depressive [...] during this visit, including review of any manq-jrw-eodbasp medications, herbal therapies, and/or supplements. Patient has [...] GoodAssessment & Plan Problems:Added: Anxiety depression (ICD-300.09) (QXT46-X40.8) Assessment: Instructions: We have made a referral for you today. We will contact you to set this up. Please continue to monitor report and avoid triggers causing increase anxiety and or depressionHealth Screening (ICD-V70.0) (GDF80-I49.9) Assessment: Instructions: Fasting labs ordered for you today.Assessed:Bipolar disorder, unspecified (BTS32-L69.9) Assessment: Instructions: We have made a referral for you today. We will contact you to set this up.Assessment not Saved Health Screening (NVZ76-A15.9): Comment OnlyInstructions: Fasting labs ordered for you [...] familyAllergies:PENICILLIN (Critical)AMOXICILLIN (Critical)* SEASONAL (Mild)Orders:COMP METABOLIC PANEL [CPT-73393] CBC W/DIFF [CPT-86419] LIPID PANEL [CPT-97334] HgBA1c [CPT-75365] TSH [CPT-16691] T-4 free [CPT-74746] Vitamin D 250H Unspecified [CPT-49438] URINALYSIS [CPT-29250] Mental Health Consult [CPT- 84779] Telepsychiatry Consult [CPT-35761] Adult - Ofc Vst, EST, Level III [CPT- 54590] Follow-Up Return to clinic: 6-8 weeks for [...] never smoked (pipe, cigarett e, cigar) [facility] ([facility]) Vital Signs ID Date Data Source UNK Name Value Range Interpretation Code Description Data Source(s) Body temperature 36.1 Kiara 36.1 Kiara MED[facility] ( [facility]) Body temperature 97.0 [degF] 97.0 [degF] MED[facility] ([facility]) Heart rate 73 /min 73 /min [facility] Diastolic blood pressure 79 mm[Hg] 79 mm[Hg] MED[facility] ([facility]) Systolic blood pressure 124 mm[Hg] 124 mm[Hg] M EDENT ([facility]) Body mass index (BMI) [Ratio] 28.3 kg/m2 28.3 k g/m2 [facility] ([facility]) Body weight 140.00 [lb_av] 140.00 [lb_av] MEDEN T ([facility]) Body height 59 [in_i] 59 [in_i] MED[facility] ([facility]) " Rindge body weight 100 [lb_av] 100 [lb_av] MEDEN T ([facility], ) Body mass index (BMI) [Ratio] 30.3 kg/m2 30.3 k g/m2 MEDENT ([facility] ) Body weight 150.00 [lb_av] 150.00 [lb_av] MEDEN T ([facility], ) Body height [Percentile] 3 % 3 % MEDENT ([facility], ) Body height 59 [in_i] 59 [in_i] MED[facility] ([facility], ) 4'11" Respiratory rate 12 /min 12 /min MED[facility] ( [facility] ) Diastolic blood pressure 66 mm[Hg] 66 mm[Hg] eCW1 ([facility]) Systolic blood pressure 120 mm[Hg] 120 mm[Hg] e CW1 ([facility]) Body mass index (BMI) [Ratio] 34.861 kg/m2 34.8 61 kg/m2 eCW1 ([facility]) Body height 59 [in_us] 59 [in_us] eCW1 ([facility]) Body weight Measured 172.6 [lb_av] 172.6 [lb_av ] eCW1 ([facility]) Diastolic blood pressure 68 mm[Hg] 68 mm[Hg] eCW1 ([facility]) Systolic blood pressure 118 mm[Hg] 118 mm[Hg] e CW1 ([facility]) Body mass index (BMI) [Ratio] 34.053 kg/m2 34.0 53 kg/m2 eCW1 ([facility]) Body height 59 [in_us] 59 [in_us] eCW1 ([facility]) Body weight Measured 168.6 [lb_av] 168.6 [lb_av ] eCW1 ([facility]) Diastolic blood pressure 78 mm[Hg] 78 mm[Hg] eCW1 ([facility]) Systolic blood pressure 136 mm[Hg] 136 mm[Hg] e CW1 ([facility]) Body mass index (BMI) [Ratio] 33.932 kg/m2 33.9 32 kg/m2 eCW1 ([facility]) Body height 59 [in_us] 59 [in_us] eCW1 ([facility]) Body weight Measured 168 [lb_av] 168 [lb_av] eC W1 ([facility]) Diastolic blood pressure 68 mm[Hg] 68 mm[Hg] eCW1 ([facility]) Systolic blood pressure 122 mm[Hg] 122 mm[Hg] e CW1 ([facility]) Body mass index (BMI) [Ratio] 33.326 kg/m2 33.3 26 kg/m2 eCW1 ([facility]) Body height 59 [in_us] 59 [in_us] eCW1 ([facility]) Body weight Measured 165 [lb_av] 165 [lb_av] eC W1 ([facility])
[2020-12-04 00:16] LABS: HCG, SERUM QUALITATIVE NEGATIVE (NEGATIVE)
[2020-12-04 00:17] LABS: INR 1.12; PROTHROMBIN TIME 14.6 SECONDS (12.5-14.3)
[2020-12-04 00:19] LABS: ALBUMIN 4.5 GM/DL (3.2-5.2); ALT/SGPT 24 U/L (12-78); BILIRUBIN,DIRECT 0.1 MG/DL (0.0-0.2); BILIRUBIN,TOTAL 0.3 MG/DL (0.2-1.0); BLOOD UREA NITROGEN 13 MG/DL (7-18); CALCIUM LEVEL 9.8 MG/DL (8.5-10.1); CARBON DIOXIDE LEVEL 25 MEQ/L (21-32); CHLORIDE LEVEL 105 MEQ/L (98-107); CREATININE FOR GFR 0.74 MG/DL (0.55-1.30); GLUCOSE, FASTING 88 MG/DL (70-100); POTASSIUM SERUM 3.7 MEQ/L (3.5-5.1); SODIUM LEVEL 142 MEQ/L (136-145)
--- NOTE | 2020-12-04 00:45 | REPVR ---
PROCEDURE INFORMATION: Exam: XR Chest, 1 View Exam date and time: 12/03/2020 12:40 AM Age: 20 years old Clinical indication: Other: Altered mental status TECHNIQUE: Imaging protocol: XR of the chest Views: 1 view. COMPARISON: No relevant prior studies available. FINDINGS: Lungs: Unremarkable. No consolidation. Pleural spaces: Unremarkable. No pleural effusion. No pneumothorax. Heart/Mediastinum: Unremarkable. No cardiomegaly. Bones/joints: Unremarkable. IMPRESSION: No acute findings. Electronically signed by: Issa Whitlock On 12/04/2020 00:45:12 AM
--- NOTE | 2020-12-04 00:45 | REPVR ---
PROCEDURE INFORMATION: Exam: CT Angiography Head With Contrast, Arteries Exam date and time: 12/03/2020 12:22 AM Age: 20 years old Clinical indication: Pain; Headache; Additional info: CARRION TECHNIQUE: Imaging protocol: Computed tomography angiography of the head with intravenous contrast. 3D rendering (Not supervised by radiologist): MIP and/or 3D reconstructed images were created by the technologist. Radiation optimization: All CT scans at this facility use at least one of these dose optimization techniques: automated exposure control; mA and/or kV adjustment per patient size (includes targeted exams where dose is matched to clinical indication); or iterative reconstruction. Contrast material: ISOVUE 370; Contrast volume: 100 ml; Contrast route: INTRAVENOUS (IV); COMPARISON: No relevant prior studies available. FINDINGS: ANTERIOR CIRCULATION: Right internal carotid artery: Unremarkable. Intracranial segment is patent with no significant stenosis. No aneurysm. Right middle cerebral artery: Unremarkable. No occlusion or significant stenosis. No aneurysm. Right anterior cerebral artery: Unremarkable. No occlusion or significant stenosis. No aneurysm. Left internal carotid artery: Unremarkable. Intracranial segment is patent with no significant stenosis. No aneurysm. Left middle cerebral artery: Left anterior cerebral artery: Unremarkable. No occlusion or significant stenosis. No aneurysm. POSTERIOR CIRCULATION: Right vertebral artery: Unremarkable. No occlusion or significant stenosis. No aneurysm. Left vertebral artery: Unremarkable. No occlusion or significant stenosis. No aneurysm. Basilar artery: Unremarkable. No occlusion or significant stenosis. No aneurysm. Right posterior cerebral artery: Unremarkable. No occlusion or significant stenosis. No aneurysm. 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 Brain: No definite mass, mass effect, or midline shift. Cerebral ventricles: No ventriculomegaly. Bones/joints: Unremarkable. No acute fracture. Soft tissues: Unremarkable. 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 Electronically signed by: Issa Whitlock On 12/04/2020 00:44:53 AM
--- NOTE | 2020-12-04 00:52 | REPVR ---
PROCEDURE INFORMATION: Exam: CT Head Without Contrast Exam date and time: 12/03/2020 12:22 AM Age: 20 years old Clinical indication: Altered mental status/memory loss; Confusion or disorientation TECHNIQUE: Imaging protocol: Computed tomography of the head without contrast. Radiation optimization: All CT scans at this facility use at least one of these dose optimization techniques: automated exposure control; mA and/or kV adjustment per patient size (includes targeted exams where dose is matched to clinical indication); or iterative reconstruction. COMPARISON: CT ANGIO HEAD 12/03/2020 11:41:57 PM FINDINGS: Brain: There is a dilated vessel in the left posteromedial parietal region, which corresponds to an arteriovenous malformation when correlated with the CTA head on 12/03/2020. There is no CT evidence for an acute large vessel territorial infarct. No acute intracranial hemorrhage is seen. No mass effect, midline shift, or herniation is noted. The cortical gyration pattern, basal ganglia, thalami, brainstem, and cerebellum are normal in appearance. Cerebral ventricles: Normal. No hydrocephalus. Bones/joints: The skull is intact. No suspicious osteolytic or osteoblastic lesion. Paranasal sinuses: There is mild opacification of the left ethmoid sinus. No air-fluid levels are noted in the sinuses. Mastoid air cells: Clear. Soft tissues: Unremarkable. No soft tissue fluid collection. 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 See further details in the CTA head report on 12/03/2020. Electronically signed by: Mayco Robert On 12/04/2020 00:52:01 AM
[2020-12-04 01:00] VITALS: BP 107/67
== END 2020-12-04 01:41 | disposition home or self-care (01) ==
LOC: M ED 23:05
DX: Q28.2 Arteriovenous malformation of cerebral vessels (principal); Z86.79 Personal history of other diseases of the circulatory system; Z88.0 Allergy status to penicillin
CPT/HCPCS: 70450; 70496; 71045; 80048; 80076; 81001; 83605; 84703; 85025; 85610; 86850; 86900; 86901; 93041; 99284; Q9967

== ENCOUNTER → 2020-12-17 | Outpatient (CLI) | payer OTHER | LOC: M LABSMTC 11:45 | PROVIDERS: ATTEND Student in an Organized Health Care Education/Training Program | DX: Z01.818 Encounter for other preprocedural examination (principal); Q28.2 Arteriovenous malformation of cerebral vessels; Z20.822 Contact with and (suspected) exposure to COVID-19 ==

== ENCOUNTER → 2021-03-10 | Outpatient (CLI) | payer OTHER | LOC: M LABSMTC 13:43 | PROVIDERS: ATTEND Student in an Organized Health Care Education/Training Program | DX: Z01.812 Encounter for preprocedural laboratory examination (principal); Z11.52 Encounter for screening for COVID-19; Q28.2 Arteriovenous malformation of cerebral vessels ==

== ENCOUNTER → 2021-03-22 | Outpatient (CLI) | payer OTHER | LOC: M LABSMTC 12:15 | PROVIDERS: ATTEND Physician Assistant | DX: Z20.828 Contact with and (suspected) exposure to other viral communicable diseases (principal) ==

== ENCOUNTER → 2021-03-22 | Outpatient (REF) | payer OTHER ==
[2021-03-22 15:20] LABS: HEMATOCRIT 38.9 % (36.0-47.0); HEMOGLOBIN 11.6 g/dl (12.0-15.5); MEAN CORPUSCULAR HEMOGLOBIN 22.8 pg (27.0-33.0); MEAN CORPUSCULAR HGB CONC 29.8 g/dl (32.0-36.5); MEAN CORPUSCULAR VOLUME 76.6 fl (80.0-96.0); PLATELET COUNT, AUTOMATED 183 10^3/uL (150-450); RED BLOOD COUNT 5.08 10^6/uL (4.00-5.40); WHITE BLOOD COUNT 7.3 10^3/uL (4.0-10.0)
[2021-03-22 15:29] LABS: INR 1.03; PROTHROMBIN TIME 13.7 SECONDS (12.5-14.3)
[2021-03-22 15:45] LABS: BLOOD UREA NITROGEN 9 MG/DL (7-18); CALCIUM LEVEL 8.5 MG/DL (8.5-10.1); CARBON DIOXIDE LEVEL 27 MEQ/L (21-32); CHLORIDE LEVEL 109 MEQ/L (98-107); GLUCOSE, FASTING 89 MG/DL (70-100); HCG, SERUM QUANTITATIVE < 1.0 MIU/ML; POTASSIUM SERUM 4.2 MEQ/L (3.5-5.1); SODIUM LEVEL 140 MEQ/L (136-145)
== END ==
LOC: M PLALAB 15:06
PROVIDERS: ATTEND Physician Assistant
DX: Q28.2 Arteriovenous malformation of cerebral vessels (principal)

== ENCOUNTER → 2021-06-14 | Outpatient (CLI) | payer OTHER | LOC: M LABSMTC 12:46 | PROVIDERS: ATTEND Student in an Organized Health Care Education/Training Program | DX: Z01.812 Encounter for preprocedural laboratory examination (principal); Z20.822 Contact with and (suspected) exposure to COVID-19 ==

== ENCOUNTER → 2021-06-14 | Outpatient (CLI) | payer OTHER ==
[2021-06-14 15:34] LABS: BASO # 0.1 10^3/uL (0.0-0.2); BASO % 0.8 % (0.0-1.0); EOS # 0.2 10^3/uL (0.0-0.5); EOS % 2.4 % (0.0-3.0); HEMOGLOBIN 12.1 g/dl (12.0-15.5); LYMPH # 2.6 10^3/uL (1.5-5.0); LYMPH % 29.3 % (24.0-44.0); MEAN CORPUSCULAR HEMOGLOBIN 23.6 pg (27.0-33.0); MEAN CORPUSCULAR HGB CONC 30.3 g/dl (32.0-36.5); MEAN CORPUSCULAR VOLUME 78.1 fl (80.0-96.0); MONO # 0.6 10^3/uL (0.0-0.8); NEUTROPHILS # 5.4 10^3/uL (1.5-8.5); NEUTROPHILS % 60.2 % (36.0-66.0); PLATELET COUNT, AUTOMATED 183 10^3/uL (150-450); RED BLOOD COUNT 5.12 10^6/uL (4.00-5.40); WHITE BLOOD COUNT 8.9 10^3/uL (4.0-10.0)
[2021-06-14 15:43] LABS: INR 1.06; PROTHROMBIN TIME 14.2 SECONDS (12.7-14.5)
[2021-06-14 15:44] LABS: PARTIAL THROMBOPLASTIN TIME 29.7 SECONDS (25.9-37.0)
[2021-06-14 15:57] LABS: BLOOD UREA NITROGEN 7 MG/DL (7-18); CALCIUM LEVEL 9.4 MG/DL (8.5-10.1); CARBON DIOXIDE LEVEL 26 MEQ/L (21-32); CHLORIDE LEVEL 110 MEQ/L (98-107); CREATININE FOR GFR 0.86 MG/DL (0.55-1.30); GLUCOSE, FASTING 80 MG/DL (70-100); HCG, SERUM QUANTITATIVE < 1.0 MIU/ML; SODIUM LEVEL 143 MEQ/L (136-145)
== END ==
LOC: M PLALAB 13:35
PROVIDERS: ATTEND Student in an Organized Health Care Education/Training Program
DX: Z48.812 Encounter for surgical aftercare following surgery on the circulatory system (principal)

== ENCOUNTER 2022-06-17 22:59 | Emergency (ER) | payer OTHER ==
[~2022-06-17] VITALS: Ht 149.9 cm; Wt 53.6 kg
[2022-06-17 22:59] VITALS: BP 133/66
== END 2022-06-18 03:22 | disposition home or self-care (01) ==
LOC: M ED 22:59
DX: S40.022A Contusion of left upper arm, initial encounter (principal); Y04.8XXA Assault by other bodily force, initial encounter; Q27.30 Arteriovenous malformation, site unspecified; Z88.0 Allergy status to penicillin

== ENCOUNTER 2022-11-01 13:23 | Emergency (ER) | payer OTHER ==
[~2022-11-01] VITALS: Ht 149.9 cm; Wt 47.6 kg
[2022-11-01 15:01] LABS: BASO # 0.1 10^3/uL (0.0-0.2); BASO % 0.8 % (0.0-1.0); EOS % 0.2 % (0.0-3.0); HEMATOCRIT 42.6 % (36.0-47.0); HEMOGLOBIN 13.5 g/dl (12.0-15.5); LYMPH # 1.8 10^3/uL (1.5-5.0); LYMPH % 27.3 % (24.0-44.0); MEAN CORPUSCULAR HEMOGLOBIN 25.4 pg (27.0-33.0); MEAN CORPUSCULAR HGB CONC 31.7 g/dl (32.0-36.5); MEAN CORPUSCULAR VOLUME 80.2 fl (80.0-96.0); MONO # 0.4 10^3/uL (0.0-0.8); MONO % 6.3 % (2.0-8.0); NEUTROPHILS # 4.2 10^3/uL (1.5-8.5); NEUTROPHILS % 64.9 % (36.0-66.0); PLATELET COUNT, AUTOMATED 220 10^3/uL (150-450); RED BLOOD COUNT 5.31 10^6/uL (4.00-5.40); WHITE BLOOD COUNT 6.5 10^3/uL (4.0-10.0)
[2022-11-01 15:22] LABS: LIPASE 25 U/L (12-53)
[2022-11-01 15:25] LABS: BILIRUBIN,DIRECT 0.2 MG/DL (<0.4)
[2022-11-01 15:28] LABS: ALBUMIN 4.3 G/DL (3.2-5.2); ALKALINE PHOSPHATASE 57 U/L (46-116); ALT/SGPT 18 U/L (7.0-40); AST/SGOT 23 U/L (<34); BILIRUBIN,TOTAL 0.6 MG/DL (0.3-1.2); BLOOD UREA NITROGEN < 5 MG/DL (9-23); CALCIUM LEVEL 9.9 MG/DL (8.5-10.1); CARBON DIOXIDE LEVEL 27 MMOL/L (20-31); CHLORIDE LEVEL 101 MMOL/L (98-107); GLOMERULAR FILTRATION RATE > 60.0 (>60); GLUCOSE, FASTING 99 MG/DL (60-100); HCG, SERUM QUALITATIVE NEGATIVE (NEGATIVE); POTASSIUM SERUM 4.5 MMOL/L (3.5-5.1); SODIUM LEVEL 138 MMOL/L (136-145); TOTAL PROTEIN 7.3 G/DL (5.7-8.2)
[2022-11-01] MEDS ORDERED: ISOVUE-370 76% 100ML VIAL As Ordered ONE (18:48)
[2022-11-01] MEDS ORDERED: ACETAMINOPHEN TAB 650MG DOSE (2X325MG) PO ONE (20:40)
[2022-11-01] MEDS ORDERED: PANTOPRAZOLE 40MG VIAL IV ONE (20:40)
[2022-11-01 21:32] VITALS: BP 127/79
== END 2022-11-01 21:42 | disposition home or self-care (01) ==
LOC: M ED 13:23
DX: R10.84 Generalized abdominal pain (principal); R10.12 Left upper quadrant pain; R11.2 Nausea with vomiting, unspecified; Z88.1 Allergy status to other antibiotic agents; Z79.899 Other long term (current) drug therapy
CPT/HCPCS: 74177; 80048; 80076; 83690; 84703; 85025; 96374; 99284; C9113

== ENCOUNTER 2022-11-03 19:06 | Emergency (ER) | payer OTHER ==
[~2022-11-03] VITALS: Ht 149.9 cm; Wt 46.8 kg
[2022-11-03 23:19] LABS: BASO # 0.1 10^3/uL (0.0-0.2); BASO % 0.6 % (0.0-1.0); EOS % 0.2 % (0.0-3.0); HEMATOCRIT 43.8 % (36.0-47.0); HEMOGLOBIN 13.9 g/dl (12.0-15.5); LYMPH # 2.4 10^3/uL (1.5-5.0); LYMPH % 23.1 % (24.0-44.0); MEAN CORPUSCULAR HEMOGLOBIN 25.1 pg (27.0-33.0); MEAN CORPUSCULAR HGB CONC 31.7 g/dl (32.0-36.5); MEAN CORPUSCULAR VOLUME 79.1 fl (80.0-96.0); MONO # 0.7 10^3/uL (0.0-0.8); NEUTROPHILS # 7.2 10^3/uL (1.5-8.5); NEUTROPHILS % 68.7 % (36.0-66.0); PLATELET COUNT, AUTOMATED 293 10^3/uL (150-450); RED BLOOD COUNT 5.54 10^6/uL (4.00-5.40); WHITE BLOOD COUNT 10.5 10^3/uL (4.0-10.0)
[2022-11-03 23:46] LABS: LIPASE 25 U/L (12-53)
[2022-11-03 23:48] LABS: BILIRUBIN,DIRECT 0.2 MG/DL (<0.4)
[2022-11-03 23:50] LABS: ALBUMIN 4.4 G/DL (3.2-5.2); ALKALINE PHOSPHATASE 54 U/L (46-116); ALT/SGPT 18 U/L (7.0-40); AST/SGOT 19 U/L (<34); BILIRUBIN,TOTAL 0.5 MG/DL (0.3-1.2); BLOOD UREA NITROGEN 6 MG/DL (9-23); CALCIUM LEVEL 9.5 MG/DL (8.5-10.1); CARBON DIOXIDE LEVEL 24 MMOL/L (20-31); CHLORIDE LEVEL 98 MMOL/L (98-107); CREATININE FOR GFR 0.57 MG/DL (0.55-1.30); GLOMERULAR FILTRATION RATE > 60.0 (>60); GLUCOSE, FASTING 91 MG/DL (60-100); POTASSIUM SERUM 3.5 MMOL/L (3.5-5.1); SODIUM LEVEL 136 MMOL/L (136-145); TOTAL PROTEIN 7.3 G/DL (5.7-8.2)
[2022-11-04 00:03] LABS: HCG, SERUM QUALITATIVE NEGATIVE (NEGATIVE)
[2022-11-04] MEDS ORDERED: PANTOPRAZOLE 40MG VIAL IV ONE (00:40)
[2022-11-04] MEDS ORDERED: ONDANSETRON 4MG 2ML VIAL IV ONE (00:40)
[2022-11-04] MEDS ORDERED: NS 1,000 ML IV ONE (00:40)
[2022-11-04] MEDS ORDERED: ISOVUE-370 76% 100ML VIAL As Ordered ONE (00:44)
[2022-11-04] MEDS ORDERED: KETOROLAC 30 MG/ML 1ML VIAL IV ONE (01:00)
[2022-11-04] MEDS ORDERED: PROT1TAB2 PO (06:24)
[2022-11-04] MEDS ORDERED: CARA1TAB6 PO (06:24)
[2022-11-04] MEDS ORDERED: PEPC1TAB5 PO (06:24)
[2022-11-04 07:00] VITALS: BP 129/79
== END 2022-11-04 07:12 | disposition home or self-care (01) ==
LOC: EDBD 19:06 → M ED 19:06
DX: R10.13 Epigastric pain (principal); F32.9 Major depressive disorder, single episode, unspecified; Q27.30 Arteriovenous malformation, site unspecified; Z79.899 Other long term (current) drug therapy; Z88.0 Allergy status to penicillin
CPT/HCPCS: 74177; 80053; 80076; 81002; 83605; 83690; 84703; 85025; 96361; 96374; 96375; 99284; C9113; J1885; J2405

== ENCOUNTER → 2022-11-14 | Outpatient (REF) | payer OTHER ==
[~2022-11-14] MED LIST changes: +CARA1TAB6 PO; +PEPC1TAB5 PO; +PROT1TAB2 PO
[2022-11-14 16:53] LABS: BASO # 0.1 10^3/uL (0.0-0.2); BASO % 1.1 % (0.0-1.0); EOS # 0.1 10^3/uL (0.0-0.5); HEMATOCRIT 41.9 % (36.0-47.0); HEMOGLOBIN 12.9 g/dl (12.0-15.5); LYMPH # 1.8 10^3/uL (1.5-5.0); LYMPH % 31.6 % (24.0-44.0); MEAN CORPUSCULAR HEMOGLOBIN 25.4 pg (27.0-33.0); MEAN CORPUSCULAR HGB CONC 30.8 g/dl (32.0-36.5); MEAN CORPUSCULAR VOLUME 82.5 fl (80.0-96.0); MONO # 0.4 10^3/uL (0.0-0.8); MONO % 7.6 % (2.0-8.0); NEUTROPHILS # 3.2 10^3/uL (1.5-8.5); NEUTROPHILS % 57.3 % (36.0-66.0); PLATELET COUNT, AUTOMATED 226 10^3/uL (150-450); RED BLOOD COUNT 5.08 10^6/uL (4.00-5.40); WHITE BLOOD COUNT 5.6 10^3/uL (4.0-10.0)
[2022-11-14 17:17] LABS: ALBUMIN 4.3 G/DL (3.2-5.2); ALKALINE PHOSPHATASE 74 U/L (46-116); ALT/SGPT 17 U/L (7.0-40); AST/SGOT 21 U/L (<34); BILIRUBIN,TOTAL 0.4 MG/DL (0.3-1.2); BLOOD UREA NITROGEN 13 MG/DL (9-23); CALCIUM LEVEL 9.5 MG/DL (8.5-10.1); CARBON DIOXIDE LEVEL 28 MMOL/L (20-31); CHLORIDE LEVEL 103 MMOL/L (98-107); CHOLESTEROL LEVEL 109 MG/DL (<200); CHOLESTEROL RISK RATIO 1.85 (<5); GLOMERULAR FILTRATION RATE > 60.0 (>60); GLUCOSE, FASTING 72 MG/DL (60-100); HDL CHOLESTEROL 58.7 MG/DL (>40); LDL CHOLESTEROL 40.9 MG/DL (<100); NON-HDL-C 50 MG/DL; POTASSIUM SERUM 4.6 MMOL/L (3.5-5.1); SODIUM LEVEL 137 MMOL/L (136-145); TOTAL PROTEIN 7.3 G/DL (5.7-8.2); TRIGLYCERIDES LEVEL 47 MG/DL (<150)
[2022-11-14 17:22] LABS: THYROID STIMULATING HORMONE 3.292 uIU/ML (0.55-4.78)
== END ==
LOC: M LAB REF 16:13
PROVIDERS: ATTEND Pediatrics
DX: R63.4 Abnormal weight loss (principal)

== ENCOUNTER 2023-12-25 10:13 | Emergency (ER) | payer OTHER ==
[~2023-12-25] VITALS: Ht 149.9 cm; Wt 46.4 kg
[2023-12-25] MEDS: ONDANSETRON 4MG 2ML VIAL IV ONE (11:44)
[2023-12-25] MEDS: NS 1,000 ML IV ONE ×2 (11:44→13:47)
[2023-12-25] MEDS ORDERED: ACET-683 PO (11:51)
[2023-12-25 11:55] LABS: BASO % 0.2 % (0.0-1.0); EOS % 0.1 % (0.0-3.0); HEMATOCRIT 43.6 % (36.0-47.0); HEMOGLOBIN 14.6 g/dl (12.0-15.5); LYMPH # 0.6 10^3/uL (1.5-5.0); LYMPH % 6.3 % (24.0-44.0); MEAN CORPUSCULAR HEMOGLOBIN 27.5 pg (27.0-33.0); MEAN CORPUSCULAR HGB CONC 33.5 g/dl (32.0-36.5); MEAN CORPUSCULAR VOLUME 82.1 fl (80.0-96.0); MONO # 0.4 10^3/uL (0.0-0.8); MONO % 4.5 % (2.0-8.0); NEUTROPHILS # 8.3 10^3/uL (1.5-8.5); NEUTROPHILS % 88.6 % (36.0-66.0); PLATELET COUNT, AUTOMATED 206 10^3/uL (150-450); RED BLOOD COUNT 5.31 10^6/uL (4.00-5.40); WHITE BLOOD COUNT 9.4 10^3/uL (4.0-10.0)
[2023-12-25 12:19] LABS: LIPASE 29 U/L (12-53)
[2023-12-25 12:21] LABS: ALBUMIN 4.1 G/DL (3.2-5.2); ALKALINE PHOSPHATASE 65 U/L (46-116); ALT/SGPT 22 U/L (7.0-40); AST/SGOT 22 U/L (<34); BILIRUBIN,DIRECT 0.2 MG/DL (<0.4); BILIRUBIN,TOTAL 0.4 MG/DL (0.3-1.2); BLOOD UREA NITROGEN 12 MG/DL (9-23); CALCIUM LEVEL 9.6 MG/DL (8.5-10.1); CARBON DIOXIDE LEVEL 23 MMOL/L (20-31); CHLORIDE LEVEL 103 MMOL/L (98-107); CREATININE FOR GFR 0.67 MG/DL (0.55-1.30); GLOMERULAR FILTRATION RATE > 60.0 (>60); GLUCOSE, FASTING 146 MG/DL (60-100); POTASSIUM SERUM 4.1 MMOL/L (3.5-5.1); SODIUM LEVEL 137 MMOL/L (136-145); TOTAL PROTEIN 7.6 G/DL (5.7-8.2)
[2023-12-25 12:51] LABS: URINE PREG TEST NEGATIVE (NEGATIVE)
[2023-12-25] MEDS ORDERED: ISOVUE-370 76% 100ML VIAL As Ordered ONE (13:10)
[2023-12-25] MEDS: KETOROLAC 30 MG/ML 1ML VIAL IV ONE (13:47)
[2023-12-25] MEDS: METOCLOPRAMIDE INJ 10MG/2ML VIAL IV ONE (13:48)
[2023-12-25] MEDS ORDERED: ONDA4TAB6 PO (15:13)
[2023-12-25] MEDS ORDERED: REGL10TA6 PO (15:13)
[2023-12-25 15:24] VITALS: BP 93/51; TEMP 97.4; O2SAT 99
== END 2023-12-25 15:42 | disposition home or self-care (01) ==
LOC: M ED 10:13
DX: R10.9 Unspecified abdominal pain (principal); F12.90 Cannabis use, unspecified, uncomplicated; Q28.2 Arteriovenous malformation of cerebral vessels
CPT/HCPCS: 74177; 80048; 80076; 81001; 83605; 83690; 84703; 85025; 86140; 87086; 87486; 87581; 87633; 87798; 96374; 96375; 99284; J1885; J2405; J2765; Q9967